=== PATIENT | female | born 1945 | race Caucasian/White ===

== ENCOUNTER 2016-11-15 10:10 | Emergency (ER) | payer MEDICARE, MEDICAID ==
[2016-11-15] MEDS ORDERED: LORazepam 0.5 MG Tab PO ONE (10:45)
[2016-11-15] MEDS ORDERED: oxyCODONE ER 10 MG TAB.ER PO ONE (11:45)
[2016-11-15] MEDS ORDERED: predniSONE 20 MG Tab PO ONE (12:41)
[2016-11-15] MEDS ORDERED: Azithromycin 250 MG Tab ONE (13:00)
[2016-11-15] MEDS ORDERED: LORazepam 0.5 MG Tab ONE (13:00)
--- NOTE | 2016-11-15 13:08 | EDM.PDOC ---
ED HPI GENERAL MEDICAL PROBLEM - General Chief Complaint: General Stated Complaint: ANXIETY, DOESNT FEEL WELL and breathing problems Time Seen by Provider: 11/15/16 10:40 Source of Information: Reports: Patient History Limitations: Reports: No Limitations - History of Present Illness INITIAL COMMENTS - FREE TEXT/NARRATIVE: Patient is a 70 year old woman with COPD and anxiety who started having a cough yesterday. Her cough has worsened today and she has gotten extremely anxious and is afraid of how poorly she is breathing, which has caused her to have a panic attack. No pain other than a headache and she feels that is from not having her oxycontin today. No other complaints. She has not done a neb for a few hours and has tried no other medication. She had her Lorazepam recently removed and she feels this may have contributed to the panic attack. 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: Breathing Treatments - Related Data Allergies Allergy/AdvReac Type Severity Reaction Status Date / Time milnacipran [From Savella] Allergy Cannot Verified 11/15/16 12:41 Remember nicotine [From Nicoderm CQ] Allergy Itching Verified 11/15/16 12:41 Penicillins Allergy Anaphylactic Verified 11/15/16 12:41 Shock tetracycline Allergy Cannot Verified 11/15/16 12:41 Remember diflunisal [From Dolobid] AdvReac Nausea Verified 11/15/16 12:41 gabapentin AdvReac Depression Verified 11/15/16 12:41 ketoprofen AdvReac Nausea Verified 11/15/16 12:41 lisinopril AdvReac Cannot Verified 11/15/16 12:41 Remember milnacipran HCl AdvReac Cannot Verified 11/15/16 12:41 [From Savella] Remember pregabalin [From Lyrica] AdvReac Cannot Verified 11/15/16 12:41 Remember Sulfa (Sulfonamide AdvReac Cannot Verified 11/15/16 12:41 Antibiotics) Remember Tetracyclines AdvReac Cannot Verified 11/15/16 12:41 Remember Home Meds: Home Meds Albuterol [Ventolin HFA] 2 puff IH Q4HR PRN 07/08/15 [History] Amitriptyline [Elavil] 50 mg PO BEDTIME 07/08/15 [History] Budesonide/Formoterol [Symbicort 160-4.5 MCG] 1 puff IH BID 07/08/15 [History] DULoxetine HCl [Cymbalta] 60 mg PO BID 07/08/15 [History] Ibuprofen [Motrin] 800 mg PO TID 07/08/15 [History] LORazepam [Ativan] 0.5 mg PO BID PRN 07/08/15 [History] Tiotropium [Spiriva HandiHaler] 1 inh INH DAILY@1200 07/08/15 [History] busPIRone HCl [Buspirone HCl] 15 mg PO TID 07/08/15 [History] oxyCODONE ER [OxyCONTIN] 15 mg PO DAILY 07/08/15 [History] Aspirin [Halfprin] 81 mg PO DAILY 12/26/15 [History] Esomeprazole [NexIUM] 40 mg PO DAILY@0700 12/26/15 [History] Fluticasone/Salmeterol [Advair 250-50 Diskus] 1 puff INH BID 12/26/15 [History] Lidocain/Me-Salicyl/Caps/Menth [Medi-Patch with Lidocaine] 1 each TP DAILY 12/25 [History] Roflumilast [Daliresp] 500 mcg PO DAILY 12/26/15 [History] Albuterol/Ipratropium [DuoNeb 3.0-0.5 MG/3 ML] 1 ampule INH BID #0 03/05/16 [Rx ] LORazepam [Ativan] 0.5 mg PO Q6H PRN #0 tablet 03/05/16 [Rx] Menthol/Zinc Oxide [Calmoseptine] 1 gm TOP BID tube 03/05/16 [Rx] Nicotine Polacrilex [Nicorelief] 4 mg CHEW Q4H PRN #0 gum 03/05/16 [Rx] Valsartan [Diovan] 320 mg PO DAILY tablet 03/05/16 [Rx] Zolpidem [Ambien] 5 mg PO BEDTIME PRN #0 tablet 03/05/16 [Rx] Past Medical History HEENT History: Reports: Impaired Vision Cardiovascular History: Reports: Hypertension Respiratory History: Reports: COPD Gastrointestinal History: Reports: Cholelithiasis, GERD 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: Musculoskeletal History: Reports: Fibromyalgia, Osteoarthritis Psychiatric History: Reports: Anxiety, Depression, Emotional Problems, Panic Attack, Suicide Attempt, Suicidal Ideation Oncologic (Cancer) History: Reports: Lung - Past Surgical History GI Surgical History: Reports: Cholecystectomy Social & Family History - Family History Family Medical History: Noncontributory Respiratory: Reports: COPD - Tobacco Use Smoking Status *Q: Never Smoker Years of Tobacco use: 50 Packs/Tins Daily: 0.5 Used Tobacco, but Quit: Yes Month Tobacco Last Used: june Second Hand Smoke Exposure: No - Caffeine Use Caffeine Use: Reports: None - Recreational Drug Use Recreational Drug Use: No ED ROS GENERAL - Review of Systems Review Of Systems: See Below Constitutional: Reports: No Symptoms HEENT: Reports: No Symptoms Respiratory: Reports: Shortness of Breath, Cough Cardiovascular: Reports: No Symptoms Endocrine: Reports: No Symptoms GI/Abdominal: Reports: No Symptoms : Reports: No Symptoms Musculoskeletal: Reports: No Symptoms Skin: Reports: No Symptoms Neurological: Reports: No Symptoms Psychiatric: Reports: No Symptoms Hematologic/Lymphatic: Reports: No Symptoms ED EXAM, GENERAL - Physical Exam Exam: See Below Exam Limited By: No Limitations General Appearance: Alert, WD/WN, Anxious, Mild Distress Eye Exam: Bilateral Eye: Normal Fundi, Normal Inspection, PERRL Ears: Normal External Exam, Normal Canal, Hearing Grossly Normal, Normal TMs Ear Exam: Bilateral Ear: Auricle Normal, Canal Normal, TM normal Nose: Normal Inspection, Normal Mucosa, No Blood Throat/Mouth: Normal Inspection, Normal Lips, Normal Teeth, Normal Gums, Normal Oropharynx, Normal Voice, No Airway Compromise Head: Atraumatic, Normocephalic Neck: Normal Inspection, Supple, Non-Tender, Full Range of Motion Respiratory/Chest: No Respiratory Distress, Lungs Clear, Normal Breath Sounds, No Accessory Muscle Use, Chest Non-Tender, Other (Breath sounds are normal but distant. Preliminary reading of CXR show Emphysematous changes but no pneumonia.) Cardiovascular: Normal Peripheral Pulses, Regular Rate, Rhythm, No Edema, No Gallop, No JVD, No Murmur, No Rub GI/Abdominal: Normal Bowel Sounds, Soft, Non-Tender, No Organomegaly, No Distention, No Abnormal Bruit, No Mass Back Exam: Normal Inspection, Full Range of Motion, NT Extremities: Normal Inspection, Normal Range of Motion, Non-Tender, Normal Capillary Refill, No Pedal Edema Neurological: Alert, Oriented, CN II-XII Intact, Normal Cognition, Normal Gait, Normal Reflexes, No Motor/Sensory Deficits Psychiatric: Anxious Skin Exam: Warm, Dry, Intact, Normal Color, No Rash Lymphatic: No Adenopathy Course - Vital Signs Text/Narrative:: Uneventful ED course. Her labs and x-rays came back normal and the Albuterol neb , 0.5 mg of Lorazepam and 5 mg of Oxycontin made her feel normal with no pain or breathing problems. She was also given Prednisone 50 mg in the ED and she was discharged home with a Zithromax Z-roc, 2, 0.5 mg Lorazepam to be taken for panic attack and she will follow up tomorrow with her PCP. She will continue her other medications and nebulizers that are already prescribed and will return to the ED if she needs to. - Orders/Labs/Meds Orders: Active Orders 24 hr Category Date Time Status EKG Documentation Completion [RC] ASDIRECTED Care 11/15/16 10:49 Active CXR [Chest 1V Frontal] [CR] Stat Exams 11/15/16 10:49 Taken Labs: Laboratory Tests 11/15/16 11/15/16 11/15/16 Range/Units 11:30 11:30 11:30 WBC 6.3 (4.0-11.0) K/uL RBC 3.83 (3.80-5.80) M/uL Hgb 11.3 L (11.5-16.5) g/dL Hct 33.8 L (37.0-47.0) % MCV 88 (76-96) fL MCH 29.5 (27.0-32.0) pg MCHC 33.4 (31.0-35.0) g/dL RDW 13.6 (11.0-16.0) % Plt Count 165 D (150-500) K/uL MPV 10.0 (6.0-10.0) fL Neut % (Auto) 69.6 (45.0-70.0) % Lymph % (Auto) 16.4 L (20.0-40.0) % Pettis % (Auto) 13.4 H (3.0-10.0) % Eos % (Auto) 0.3 L (1.0-5.0) % Baso % (Auto) 0.3 (0.0-0.5) % Neut # (Auto) 4.38 (2.00-7.50) K/uL Lymph # (Auto) 1.03 L (1.50-4.00) K/uL Pettis # (Auto) 0.84 H (0.20-0.80) K/uL Eos # (Auto) 0.02 L (0.04-0.40) K/uL Baso # (Auto) 0.02 (0.02-0.10) K/uL Sodium 139 (136-145) mmol/L Potassium 3.9 (3.5-5.1) mmol/L Chloride 102 (98-107) mmol/L Carbon Dioxide 26.6 (21.0-32.0) mmol/L Anion Gap 14.3 (5.0-15.0) mmol/L BUN 9 D (8-26) mg/dL Creatinine 0.89 (0.55-1.02) mg/dL Est Cr Clr Drug Dosing 42.25 mL/min Estimated GFR (MDRD) > 60 (>60) MLS/MIN BUN/Creatinine Ratio 10.1 (6-25) Glucose 118 H (74-100) mg/dL Calcium 8.6 (8.5-10.1) mg/dL Total Bilirubin 0.6 D (0.0-1.0) mg/dL AST 16 (15-37) U/L ALT 12 (12-78) U/L Alkaline Phosphatase 83 (46-116) U/L Troponin I < 0.017 (0.000-0.060) ng/mL Total Protein 7.1 (6.4-8.2) g/dL Albumin 3.3 L (3.4-5.0) g/dL Globulin 3.8 (2.2-4.2) g/dL Albumin/Globulin Ratio 0.9 (0.8-2.0) Meds: Medications Discontinued Medications Generic Name Dose Route Start Last Admin Trade Name Mitch PRN Reason Stop Dose Admin Lorazepam 0.5 mg 11/15/16 10:45 11/15/16 10:48 Ativan PO 11/15/16 10:46 0.5 mg ONETIME ONE Administration Oxycodone HCl 5 mg 11/15/16 11:45 11/15/16 11:51 Oxycontin PO 11/15/16 11:46 5 mg ONETIME ONE Administration Prednisone 50 mg 11/15/16 12:41 11/15/16 12:46 Prednisone PO 11/15/16 12:42 50 mg ONETIME ONE Administration Departure - Departure Time of Disposition: 13:15 Disposition: Admitted As Inpatient 66 Condition: Good Clinical Impression: COPD exacerbation, Panic attack - Discharge Information Instructions: Lorazepam tablets Referrals: PCP,None [Primary Care Provider] - Forms: ED Department Discharge Additional Instructions: - Follow-up with your provider tomorrow. - Continue with nebulizer treatment and inhaler and other home medications. - Bed rest at home. - My Orders Last 24 Hours: My Active Orders 11/15/16 10:49 EKG Documentation Completion [RC] ASDIRECTED CXR [Chest 1V Frontal] [CR] Stat - Assessment/Plan Last 24 Hours: My Active Orders 11/15/16 10:49 EKG Documentation Completion [RC] ASDIRECTED CXR [Chest 1V Frontal] [CR] Stat
--- NOTE | 2016-11-15 14:04 | CR ---
DATE OF SERVICE: 11/15/16 CLINICAL DATA: Dyspnea with COPD AP CHEST Comparison is made to a prior exam dated 03/04/16. The heart and lungs are stable. No evidence of acute intrathoracic disease. [id number] [facility]
[2016-11-15 14:57] VITALS: BP 170/85
== END 2016-11-15 13:20 | disposition home or self-care (01) ==
LOC: LB.ED 10:10
DX: J44.1 Chronic obstructive pulmonary disease with (acute) exacerbation (principal); F41.0 Panic disorder [episodic paroxysmal anxiety]; H54.7 Unspecified visual loss; I10 Essential (primary) hypertension; K21.9 Gastro-esophageal reflux disease without esophagitis; F32.9 Major depressive disorder, single episode, unspecified; Z90.49 Acquired absence of other specified parts of digestive tract; Z88.0 Allergy status to penicillin; Z88.2 Allergy status to sulfonamides; Z88.1 Allergy status to other antibiotic agents; Z88.8 Allergy status to other drugs, medicaments and biological substances; Z79.899 Other long term (current) drug therapy; Z79.82 Long term (current) use of aspirin; Z85.118 Personal history of other malignant neoplasm of bronchus and lung
CPT/HCPCS: 36415; 71010; 80053; 84484; 85025; 93005; 99284; A9270; 99283

== ENCOUNTER 2017-07-22 20:50 | Emergency (ER) | payer MEDICARE, MEDICAID ==
[2017-07-22] MEDS ORDERED: Albuterol/Ipratropium 3.0-0.5 MG/3 ML Neb Soln NEB ONE (22:20)
[2017-07-22 23:33] VITALS: BP 135/53
--- NOTE | 2017-07-23 04:23 | ER ---
Date of Service: 07/22/2017 HISTORY OF PRESENT ILLNESS: A 71-year-old lady who comes in with her sons with private car with complaints of passing out at home this evening. The patient states that she was walking in her home, she felt unsteady. She stopped and held onto the countertop for a little bit. She seemed like she was feeling better, and she turned around to go back into the living room when she thinks she fell at that time. She states that she woke up on the floor, and she noticed pain on the back of her head as well as a lump on the back of her head. There was no bleeding. The patient denies any other injuries. She states that she has fallen before in her house over the last couple of years. She has fallen at least two other times. The patient states that she does roll out of bed quite often too when she is having some bad dreams. The patient does have a fairly extensive medical history that includes history of depression, panic attacks, anxiety, suicidal ideation, and PTSD. The patient denies any thoughts of suicide recently. She tells me that she has a lot of aches and pains. She does have history of COPD and she tells me about fibromyalgia pain as well. The patient denies any neck pain, chest pain or abdominal pain at this time, and she tells me that she does not have any dizziness or lightheadedness at this point. She is very talkative. OBJECTIVE: GENERAL APPEARANCE: The patient is awake, she is very talkative. She is alert to person and place. VITAL SIGNS: Reviewed. Initially, her blood pressure is elevated with a reading of 182/68, pulse is 70. She is afebrile, O2 saturation 97% on room air. HEENT: On physical exam; eyes, pupils are equal, round, and reactive to light. EOMs are intact. Head is normocephalic. She does have a goose egg on the back of her head that would measure about 5 to 6 cm in diameter. This area is tender with even light palpation. Neck is nontender with palpation today. The patient can rotate her head and neck area both directions without any increase in pain. Oral mucous membranes moist. No sign of dental or oral injury. LUNG: Exam reveals wheezes throughout the lung messer with moderately reduced air exchange. CARDIAC: Heart sounds distinct. I do not hear any murmurs. GI : Abdomen is soft, nontender. SKIN: Warm and dry. EXTREMITIES: There is no lower extremity edema noted. LABS: Tonight include CBC which is normal. Comprehensive metabolic panel was also unremarkable. Head CT shows the mass that we saw on exam. No intracranial injury tonight. The patient was given a DuoNeb treatment, which significantly improved the wheezing down to just a very minimal end-expiratory wheezes. She was monitored here for about an hour. The blood pressure did drop, the last reading was in the 130s over 70s. The patient states that she is feeling much better. Ice packs were applied to the back of the patient' s head as well. She was able to get up and walk around the exam room without any obvious dizziness or lightheadedness. At this point, the patient will be discharged to home. She is to go home with her sons. They will have at least one person stay with her tonight. I advised patient that she needs to increase her use of her nebulizer machine at home. She does have a DuoNeb that she can take at home. She states she does not use it very often. She uses a couple of inhalers. I feel right now she needs to increase her DuoNeb treatment to 3 or 4 times a day through the weekend. She is to continue with activity as tolerated and have supervision there most of the time. The patient does have a followup appointment next Wednesday with her primary care provider. She is to keep this appointment time. The patient has no further questions. DIAGNOSIS: Syncopal episode. CRS/MODL /[id number] MTDKi
--- NOTE | 2017-07-23 09:41 | CT ---
DATE OF SERVICE: 07/22/17 CLINICAL DATA: passed out with closed head injury. UNENHANCED BRAIN CT: Multislice acquisition through the brain without IV contrast was performed. Comparison is made to a prior exam dated 07/08/15. There are periventricular lucencies bilaterally consistent with small vessel ischemic change. No masses or mass effect. No intracranial hemorrhage. No evidence of acute or subacute infarct. No osseous abnormalities. IMPRESSION: No acute intracranial abnormalities. [id number] [facility]
== END 2017-07-22 22:50 | disposition home or self-care (01) ==
LOC: LB.ED 20:50
DX: R55 Syncope and collapse (principal); R06.2 Wheezing; J44.9 Chronic obstructive pulmonary disease, unspecified; F41.9 Anxiety disorder, unspecified; F32.9 Major depressive disorder, single episode, unspecified; F43.10 Post-traumatic stress disorder, unspecified; E53.8 Deficiency of other specified B group vitamins
CPT/HCPCS: 36415; 70450; 80053; 85025; 93005; 96372; 99283; 99284-25; J3420; J7620

== ENCOUNTER 2017-09-23 08:01 | Inpatient (IN) | payer MEDICARE, MEDICAID ==
[2017-09-23] MEDS ORDERED: Albuterol 8 GM Inhaler INH PRN (16:32)
[2017-09-23] MEDS ORDERED: busPIRone 15 MG Tab PO SCH ×2 (17:00→20:00)
[2017-09-23] MEDS ORDERED: oxyCODONE 5 MG Tab PO PRN (17:14)
[2017-09-23] MEDS ORDERED: Meclizine 12.5 MG Tab PO PRN (17:15)
[2017-09-23] MEDS ORDERED: traZODone 50 MG Tab PO SCH (20:00)
[2017-09-23] MEDS ORDERED: traZODone 100 MG Tab PO SCH (20:00)
[2017-09-23] MEDS ORDERED: ESCITALOPRAM OXALATE 5 MG PO SCH (20:00)
[2017-09-23] MEDS: BUDESONIDE IH SCH (20:11)
[2017-09-23] MEDS: FORMOTEROL IH SCH (20:11)
[2017-09-23] MEDS: DULoxetine 60 MG Cap PO SCH (20:11)
[2017-09-24] MEDS ORDERED: Non-Formulary Medication 1 Each (Esomeprazole [Nexium] 40 MG) PO SCH (07:00)
[2017-09-24] MEDS ORDERED: busPIRone 15 MG Tab PO SCH (08:00)
[2017-09-24] MEDS ORDERED: MAGNESIUM OXIDE 400 MG PO SCH (08:00)
[2017-09-24] MEDS ORDERED: Valsartan 160 MG Tab PO SCH (08:00)
[2017-09-24] MEDS ORDERED: Non-Formulary Medication 1 Each (Oxycodone Hcl [Oxycodone Hcl] 5 MG) PO SCH (08:00)
--- NOTE | 2017-09-24 08:11 | HP ---
CHIEF COMPLAINT: Dizziness and falls. PAST MEDICAL HISTORY: 1. Depression, severe with suicidal ideation and anxiety. 2. Hyponatremia. 3. Hypokalemia. 4. Hypertension. 5. Chronic obstructive pulmonary disease. 6. Fibromyalgia. 7. History of lung cancer, status post resection. 8. Status post cholecystectomy. 9. Chronic narcotic use. HISTORY OF PRESENT ILLNESS: A pleasant 71-year-old female comes into the clinic today, very disheveled, frustrated, anxious because of continued vertiginous dizziness and falls at home. She did have a fall on Mother's Day of this year. She went to the emergency room where its head scan was negative for any bleed, but did develop an occipital hematoma. The patient has persisted to have vertigo since that time and has had 2 further falls. She feels that she is getting much weaker. She is not eating as well. The dizziness is brought on with any type of movement of her head. She denies any other focal neurologic symptoms. To complicate things, she has also stopped taking some of her medications, Lexapro and also cut down on her trazodone at night. She is having difficulty with sleeping with worsening depression and anxiety. She also has increased the use of her oxycodone, taking two tablets daily instead of the prescribed, one. She denies having any other focal neurologic symptoms. No fevers, chills, or sweats. ALLERGIES: NEURONTIN, LYRICA, DOLOBID, KETOPROFEN, LISINOPRIL. PENICILLIN, SAVELLA, SULFA, AND TETRACYCLINE. MEDICATIONS: Ibuprofen 800 mg t.i.d., oxycodone 5 mg q.h.s., albuterol nebs q.6 hours p.r.n., Daliresp 500 mg daily, ProAir inhaler 2 puffs q.4-6 hours p.r.n. Spiriva 18 mcg 1 puff daily, Symbicort 160/4.5 one puff b.i.d., duloxetine 60 mg b.i.d., Lexapro 5 mg daily which she has stopped taking, Nexium 40 mg daily, aspirin 81 mg daily, magnesium oxide 400 mg daily, propranolol ER 60 mg daily, valsartan 160 mg daily, BuSpar 15 mg t.i.d., trazodone 50 mg q.h.s., and takes an extra half tablet in 2 hours if not sleeping, previous dose was 100 mg q.h.s. The patient previously stopped taking her Remeron 7.5 mg nightly. SOCIAL HISTORY: She is . Does smoke half pack a day. No alcohol. FAMILY HISTORY: Reviewed and was noncontributory. REVIEW OF SYSTEMS: A 12-point review of systems is negative other than above. PHYSICAL EXAMINATION: GENERAL: The patient presents today very anxious-appearing, somewhat disheveled. No makeup in place. Her speech is not pressured. She comes in with a wheeled walker. VITAL SIGNS: Blood pressure is 148/90, pulse is 68, she is afebrile. Weight is 137 pounds, which is stable from earlier this month. HEENT: Negative. TMs are clear. No adenopathy or thyromegaly. CHEST: Clear. CARDIAC: Regular rate and rhythm without gallop, rub, or murmur. ABDOMEN: Benign. : Deferred. NEUROLOGIC: She is alert and oriented x3. Pupils are equal, round, and reactive to light. Remainder of cranial nerves III through XII are intact. There is no nystagmus. Strength is symmetric, but decreased in both upper and lower extremities. She is able to ambulate with normal gait with her walker. She becomes very unsteady when I have her stand up from a chair. Hallpike maneuver does bring on dizziness, but no nystagmus. IMPRESSION: 1. Peripheral vertigo. 2. Frequent falls. 3. Deconditioning. 4. Anxiety with depression. 5. Medication compliance. 6. Chronic narcotic use. 7. Hypertension. 8. Chronic obstructive pulmonary disease. 9. Fibromyalgia. PLAN: I did talk with her at length, and I told her I did not feel that she was safe at home due to her vertigo and falls. I did talk with Social Work here today and we will plan on admitting for observation and getting her back on her current medications. Also do screening labs of BMP and a CBC. We will plan on re-scanning her head because of her 2 falls after her last CT. If these are normal, we will ask Physical Therapy for evaluation. Restart her psychiatric medications as previously prescribed. I told her of the need to stay on only one oxycodone daily. We will then make reassessment of her situation, but anticipate that she is going to need a correction facility for a some period of time until she recovers. We will also use Antivert for her vertigo. SIMONE/THIERRY
[2017-09-24] MEDS: Aspirin 81 MG Tab.EC PO SCH (08:19)
[2017-09-24] MEDS: Roflumilast 500 MCG Tab PO SCH (08:20)
[2017-09-24] MEDS: Propranolol 60 MG Cap.ER PO SCH (08:21)
[2017-09-24] MEDS: DULoxetine 60 MG Cap PO SCH ×2 (08:22→20:03)
[2017-09-24] MEDS: FORMOTEROL IH SCH (08:28)
[2017-09-24] MEDS: BUDESONIDE IH SCH (08:28)
--- NOTE | 2017-09-24 09:56 | CT ---
DATE OF SERVICE: 09/23/17 CLINICAL DATA: fall UNENHANCED BRAIN CT: Multislice acquisition through the brain without IV contrast was performed. Comparison is made to a prior exam dated 07/22/17. No changes. No acute intracranial abnormalities. [id number] [facility]
[2017-09-24] MEDS: Albuterol/Ipratropium 3.0-0.5 MG/3 ML Neb Soln INH SCH ×3 (10:37→20:08)
[2017-09-24] MEDS: Ibuprofen 800 MG Tab PO SCH ×4 (10:38→20:04)
[2017-09-24] MEDS ORDERED: oxyCODONE 5 MG Tab ONE (11:43)
[2017-09-24] MEDS: Tiotropium Inhaler 18 MCG Inhalation Powder Cap Kit of 5 INH SCH (11:46)
[2017-09-24] MEDS: oxyCODONE 5 MG Tab PO SCH (12:43)
--- NOTE | 2017-09-24 14:19 | PN ---
DATE OF VISIT: 09/24/2017 SUBJECTIVE: The patient reports feeling much better this morning. She is up ambulating to the bathroom on her own without significant dizziness. She ate supper well last night. She would like to move her oxycodone to late morning, and she understands she is only able to have one 5 mg tablet daily. She denies any headache or any other neurologic symptom. She states her mood also has improved. She is less anxious, has not been any tearfulness. Denies any side effects of the medications. OBJECTIVE: VITAL SIGNS: Stable. GENERAL: The patient looks brighter. She is much better kempt with her hair combed, glasses on. Up ambulating with her walker. HEENT: There was no nystagmus today. NEUROLOGIC: Grossly nonfocal. LUNGS: Clear. CARDIAC: Unremarkable. IMPRESSION: 1. Dizziness. 2. Anxiety and depression. 3. Chronic obstructive pulmonary disease. 4. Fibromyalgia. 5. Chronic narcotic use. PLAN: The patient is a markedly improved today and occupational therapy saw the patient and could not really elicit any dizziness. I am questioning whether or not her dizziness may also be exacerbated by her depression. In any event, she is on Antivert now. We will continue with this. Restart her Lexapro, which she had stopped at home, and also increased her trazodone to 100 mg, although she was on 150 mg previously. Continue with PT and OT. If over the weekend the patient progresses well, may need a swing bed for further strengthening versus alf facility stay. We will defer that to early next week. The patient is comfortable with this plan and expresses understanding. TIKA /[id number]
[2017-09-24] MEDS: busPIRone 10 MG Tab PO SCH ×2 (14:29→20:02)
[2017-09-24] MEDS: traZODone 50 MG Tab PO SCH (20:06)
[2017-09-24] MEDS: Escitalopram 20 MG Tab PO SCH (20:08)
[2017-09-24] MEDS: Formoterol/Mometasone 200-5 MCG 8.8 GM Inhaler IH SCH (20:08)
[2017-09-25] MEDS: Ibuprofen 800 MG Tab PO SCH ×4 (04:47→20:42)
[2017-09-25] MEDS: Esomeprazole 40 MG Cap PO SCH (06:37)
[2017-09-25] MEDS ORDERED: Valsartan 40 MG Tab PO SCH (08:00)
[2017-09-25] MEDS ORDERED: Meclizine 12.5 MG Tab PO SCH (08:00)
[2017-09-25] MEDS ORDERED: busPIRone 10 MG Tab PO SCH (08:00)
[2017-09-25] MEDS: Magnesium Oxide 400 MG Tab PO SCH (08:13)
[2017-09-25] MEDS: Aspirin 81 MG Tab.EC PO SCH (08:13)
[2017-09-25] MEDS: DULoxetine 60 MG Cap PO SCH ×2 (08:13→20:43)
[2017-09-25] MEDS: busPIRone 10 MG Tab PO SCH ×3 (08:13→20:44)
[2017-09-25] MEDS: Roflumilast 500 MCG Tab PO SCH (08:13)
[2017-09-25] MEDS: Propranolol 60 MG Cap.ER PO SCH (08:14)
[2017-09-25] MEDS: Formoterol/Mometasone 200-5 MCG 8.8 GM Inhaler IH SCH ×2 (08:15→20:40)
[2017-09-25] MEDS: Albuterol/Ipratropium 3.0-0.5 MG/3 ML Neb Soln INH SCH ×2 (08:15→20:46)
[2017-09-25] MEDS: oxyCODONE 5 MG Tab PO SCH (09:00)
[2017-09-25] MEDS ORDERED: oxyCODONE 5 MG Tab PO SCH (10:30)
--- NOTE | 2017-09-25 11:48 | PCM.PN ---
- General Info Date of Service: 09/25/17 Subjective Update: Pt claims she is hurting all over the body today. She claims that her dizziness is worse today. She feels the room spin every time she move her head. She does ambulate to bathroom and back with some help. Feeding well. Claims she is weak and tired. No nausea or vomiting. No double vision or syncopal episodes. No amurosis fugax. Functional Status: Reports: Tolerating Diet, Ambulating, Urinating, Incentive Spirometry - Review of Systems General: Reports: Weakness. Denies: Fever, Chills, Appetite HEENT: Denies: Headaches, Sinus Congestion Pulmonary: Denies: Shortness of Breath, Sputum, Hemoptysis Cardiovascular: Denies: Chest Pain, Lightheadedness Gastrointestinal: Reports: Flatus. Denies: Nausea, Vomiting Genitourinary: Denies: Dysuria, Frequency Musculoskeletal: Reports: Leg Pain. Denies: Joint Pain, Joint Swelling Skin: Denies: Pruritis, Rash - Patient Data Vitals - Most Recent: Last Vital Signs Temp 98.1 F 09/25/17 08:00 Pulse 73 09/25/17 08:00 Resp 18 09/25/17 08:00 BP 131/67 09/25/17 08:00 Pulse Ox 97 09/25/17 08:00 Weight - Most Recent: 61.689 kg Med Orders - Current: Current Medications Albuterol (Ventolin Hfa) 8 gm INH Q4HR PRN PRN Reason: Shortness of Breath Albuterol/Ipratropium (Duoneb 3.0-0.5 Mg/3 Ml) 3 ml INH BID [facility] Last Admin: 09/25/17 08:15 Dose: Not Given Aspirin (Halfprin) 81 mg PO DAILY [facility] Last Admin: 09/25/17 08:13 Dose: 81 mg Buspirone HCl (Buspar) 15 mg PO TID [facility] Last Admin: 09/25/17 08:13 Dose: 15 mg Duloxetine HCl (Cymbalta) 60 mg PO BID [facility] Last Admin: 09/25/17 08:13 Dose: 60 mg Escitalopram Oxalate (Lexapro) 5 mg PO BEDTIME [facility] Last Admin: 09/24/17 20:08 Dose: 5 mg Esomeprazole Magnesium (Nexium) 40 mg PO DAILY@0700 [facility] Last Admin: 09/25/17 06:37 Dose: 40 mg Ibuprofen (Motrin) 800 mg PO TID [facility] Last Admin: 09/25/17 08:15 Dose: Not Given Magnesium Oxide (Magnesium Oxide) 400 mg PO DAILY [facility] Last Admin: 09/25/17 08:13 Dose: 400 mg Meclizine HCl (Antivert) 25 mg PO TID@0600,1400,2200 [facility] Last Admin: 09/25/17 06:38 Dose: 25 mg Mometasone Furoate/Formoterol Fumar (Dulera 200-5 Mcg) 1 puff IH BID [facility] Last Admin: 09/25/17 08:15 Dose: 1 puff Oxycodone HCl (Oxycodone) 5 mg PO DAILY@1030 [facility] Last Admin: 09/24/17 12:43 Dose: Not Given Propranolol HCl (Inderal La) 60 mg PO DAILY [facility] Last Admin: 09/25/17 08:14 Dose: 60 mg Roflumilast (Daliresp) 500 mcg PO DAILY [facility] Last Admin: 09/25/17 08:13 Dose: 500 mcg Tiotropium [place] (Spiriva Handihaler) 18 mcg INH DAILY@1200 [facility] Last Admin: 09/24/17 11:46 Dose: 18 mcg Trazodone HCl (Trazodone) 100 mg PO BEDTIME [facility] Last Admin: 09/24/17 20:06 Dose: 100 mg Valsartan (Diovan) 160 mg PO DAILY [facility] Last Admin: 09/25/17 08:14 Dose: 160 mg Discontinued Medications Buspirone HCl (Buspar) 30 mg PO DAILY [facility] Last Admin: 09/24/17 08:18 Dose: 15 mg Buspirone HCl (Buspar) 15 mg PO BID@1200,1700 [facility] Last Admin: 09/23/17 17:44 Dose: 15 mg Meclizine HCl (Antivert) 12.5 mg PO TID@0600,1400,2200 PRN PRN Reason: DIZZINESS Last Admin: 09/24/17 08:20 Dose: 12.5 mg Non-Formulary Medication (Budesonide/Formoterol [Symbicort 160-4.5 Mcg]) 1 puff IH BID [facility] Last Admin: 09/24/17 08:28 Dose: 1 puff Non-Formulary Medication (Esomeprazole [Nexium]) 40 mg PO DAILY@0700 [facility] Last Admin: 09/24/17 06:30 Dose: 40 mg Non-Formulary Medication (Escitalopram Oxalate [Lexapro]) 5 mg PO BEDTIME [facility] Last Admin: 09/23/17 20:11 Dose: 5 mg Magnesium Oxide (400mg) 1 each PO DAILY [facility] Last Admin: 09/24/17 08:20 Dose: 1 each Oxycodone HCl (Oxycodone) 5 mg PO BID PRN PRN Reason: MODERATE PAIN Last Admin: 09/23/17 17:40 Dose: 5 mg Oxycodone HCl (Oxycodone) 5 mg PO DAILY@1030 [facility] Last Admin: 09/24/17 11:47 Dose: 5 mg Oxycodone HCl (Oxycodone) Confirm Administered Dose 5 mg .ROUTE .STK-MED ONE Stop: 09/24/17 11:44 Last Admin: 09/24/17 11:49 Dose: Not Given Trazodone HCl (Trazodone) 100 mg PO BEDTIME [facility] Last Admin: 09/23/17 20:10 Dose: 100 mg Valsartan (Diovan) 160 mg PO DAILY [facility] Last Admin: 09/24/17 08:19 Dose: 160 mg - Exam General: Alert, Oriented HEENT: Pupils Equal, Pupils Reactive, EOMI, Mucous Membr. Moist/[place] Neck: Supple Lungs: Clear to Auscultation, Normal Respiratory Effort Cardiovascular: Regular Rate, Regular Rhythm GI/Abdominal Exam: Normal Bowel Sounds, Soft, Non-Tender, No Organomegaly, No Distention, No Abnormal Bruit, No Mass, Pelvis Stable Extremities: Normal Inspection, Normal Range of Motion, Non-Tender, No Pedal Edema, Normal Capillary Refill Peripheral Pulses: 2+: Carotid (L), Carotid (R) Skin: Warm, Intact Neurological: No New Focal Deficit - Problem List & Annotations (1) Unspecified vertiginous syndromes and labyrinthine disorders SNOMED Code(s): 25566642, 54043089 Code(s): H81.90 - UNSPECIFIED DISORDER OF VESTIBULAR FUNCTION, UNSPECIFIED EAR Status: Acute Current Visit: Yes - Problem List Review Problem List Initiated/Reviewed/Updated: Yes - Assessment Assessment:: non specific vertigo with fall - Plan Plan:: Pt does not have elicitable vertigo. She moves the head and neck in every direction when she wants too . But when examining patient she feels dizzy. Also she starts to sway when her eyes are closed and when she moves and when she opens the eye she still continue to sway.I don't know if she has functional vertigo or organic cause of it. But she is single , elderly and has had fall at home several times. Hence will monitor in controlled environment. Will have OP and PT work with patient.Will continue present medication regime.
[2017-09-25] MEDS: Tiotropium Inhaler 18 MCG Inhalation Powder Cap Kit of 5 INH SCH (17:37)
[2017-09-25] MEDS: traZODone 50 MG Tab PO SCH (20:45)
[2017-09-25] MEDS: Escitalopram 20 MG Tab PO SCH (20:46)
[2017-09-26] MEDS: Esomeprazole 40 MG Cap PO SCH (06:34)
[2017-09-26] MEDS: Aspirin 81 MG Tab.EC PO SCH (08:06)
[2017-09-26] MEDS: Ibuprofen 800 MG Tab PO SCH ×3 (08:06→19:36)
[2017-09-26] MEDS: Roflumilast 500 MCG Tab PO SCH (08:06)
[2017-09-26] MEDS: Magnesium Oxide 400 MG Tab PO SCH (08:06)
[2017-09-26] MEDS: busPIRone 10 MG Tab PO SCH ×3 (08:07→19:37)
[2017-09-26] MEDS: DULoxetine 60 MG Cap PO SCH ×2 (08:07→19:35)
[2017-09-26] MEDS: Propranolol 60 MG Cap.ER PO SCH (08:08)
[2017-09-26] MEDS: Formoterol/Mometasone 200-5 MCG 8.8 GM Inhaler IH SCH ×2 (08:09→19:34)
[2017-09-26] MEDS: Albuterol/Ipratropium 3.0-0.5 MG/3 ML Neb Soln INH SCH ×2 (08:09→19:56)
[2017-09-26] MEDS: oxyCODONE 5 MG Tab PO SCH (10:09)
--- NOTE | 2017-09-26 11:19 | PCM.PN ---
- General Info Date of Service: 09/26/17 Subjective Update: Pt claims that she is feeling better, but still gets sudden dizzy episodes. HAd some upset stomach today morning, and resolved after bowel movement. tolerating oral diet well. Does ambulate with walker. No complaints Functional Status: Reports: Pain Controlled, Tolerating Diet, Ambulating, Urinating - Review of Systems General: Denies: Fever, Weakness HEENT: Denies: Sinus Congestion, Visual Changes Pulmonary: Denies: Cough, Sputum Cardiovascular: Denies: Chest Pain, Lightheadedness Gastrointestinal: Denies: Abdominal Pain, Nausea, Vomiting Genitourinary: Denies: Dysuria, Frequency Musculoskeletal: Denies: Joint Pain, Joint Swelling Skin: Denies: Pruritis, Rash Neurological: Denies: No Symptoms Psychiatric: Reports: Anxiety - Patient Data Vitals - Most Recent: Last Vital Signs Temp 98.3 F 09/26/17 07:53 Pulse 65 09/26/17 07:53 Resp 16 09/26/17 07:53 BP 124/71 09/26/17 07:53 Pulse Ox 98 09/26/17 07:53 Weight - Most Recent: 61.689 kg Med Orders - Current: Current Medications Albuterol (Ventolin Hfa) 8 gm INH Q4HR PRN PRN Reason: Shortness of Breath Albuterol/Ipratropium (Duoneb 3.0-0.5 Mg/3 Ml) 3 ml INH BID [facility] Last Admin: 09/26/17 08:09 Dose: Not Given Aspirin (Halfprin) 81 mg PO DAILY [facility] Last Admin: 09/26/17 08:06 Dose: 81 mg Buspirone HCl (Buspar) 15 mg PO TID [facility] Last Admin: 09/26/17 08:07 Dose: 15 mg Duloxetine HCl (Cymbalta) 60 mg PO BID [facility] Last Admin: 09/26/17 08:07 Dose: 60 mg Escitalopram Oxalate (Lexapro) 5 mg PO BEDTIME [facility] Last Admin: 09/25/17 20:46 Dose: 5 mg Esomeprazole Magnesium (Nexium) 40 mg PO DAILY@0700 [facility] Last Admin: 09/26/17 06:34 Dose: 40 mg Ibuprofen (Motrin) 800 mg PO TID [facility] Last Admin: 09/26/17 08:06 Dose: 800 mg Magnesium Oxide (Magnesium Oxide) 400 mg PO DAILY [facility] Last Admin: 09/26/17 08:06 Dose: 400 mg Meclizine HCl (Antivert) 25 mg PO TID@0600,1400,2200 [facility] Last Admin: 09/26/17 06:34 Dose: 25 mg Mometasone Furoate/Formoterol Fumar (Dulera 200-5 Mcg) 1 puff IH BID [facility] Last Admin: 09/26/17 08:09 Dose: 1 puff Oxycodone HCl (Oxycodone) 5 mg PO DAILY@1030 [facility] Last Admin: 09/26/17 10:09 Dose: 5 mg Propranolol HCl (Inderal La) 60 mg PO DAILY [facility] Last Admin: 09/26/17 08:08 Dose: 60 mg Roflumilast (Daliresp) 500 mcg PO DAILY [facility] Last Admin: 09/26/17 08:06 Dose: 500 mcg Tiotropium [place] (Spiriva Handihaler) 18 mcg INH DAILY@1200 [facility] Last Admin: 09/25/17 17:37 Dose: Not Given Trazodone HCl (Trazodone) 100 mg PO BEDTIME [facility] Last Admin: 09/25/17 20:45 Dose: 100 mg Valsartan (Diovan) 160 mg PO DAILY [facility] Last Admin: 09/26/17 08:07 Dose: 160 mg Discontinued Medications Buspirone HCl (Buspar) 30 mg PO DAILY [facility] Last Admin: 09/24/17 08:18 Dose: 15 mg Buspirone HCl (Buspar) 15 mg PO BID@1200,1700 [facility] Last Admin: 09/23/17 17:44 Dose: 15 mg Meclizine HCl (Antivert) 12.5 mg PO TID@0600,1400,2200 PRN PRN Reason: DIZZINESS Last Admin: 09/24/17 08:20 Dose: 12.5 mg Non-Formulary Medication (Budesonide/Formoterol [Symbicort 160-4.5 Mcg]) 1 puff IH BID [facility] Last Admin: 09/24/17 08:28 Dose: 1 puff Non-Formulary Medication (Esomeprazole [Nexium]) 40 mg PO DAILY@0700 [facility] Last Admin: 09/24/17 06:30 Dose: 40 mg Non-Formulary Medication (Escitalopram Oxalate [Lexapro]) 5 mg PO BEDTIME [facility] Last Admin: 09/23/17 20:11 Dose: 5 mg Magnesium Oxide (400mg) 1 each PO DAILY [facility] Last Admin: 09/24/17 08:20 Dose: 1 each Oxycodone HCl (Oxycodone) 5 mg PO BID PRN PRN Reason: MODERATE PAIN Last Admin: 09/23/17 17:40 Dose: 5 mg Oxycodone HCl (Oxycodone) 5 mg PO DAILY@1030 [facility] Last Admin: 09/24/17 11:47 Dose: 5 mg Oxycodone HCl (Oxycodone) Confirm Administered Dose 5 mg .ROUTE .STK-MED ONE Stop: 09/24/17 11:44 Last Admin: 09/24/17 11:49 Dose: Not Given Trazodone HCl (Trazodone) 100 mg PO BEDTIME [facility] Last Admin: 09/23/17 20:10 Dose: 100 mg Valsartan (Diovan) 160 mg PO DAILY [facility] Last Admin: 09/24/17 08:19 Dose: 160 mg - Exam General: Alert, Oriented HEENT: Pupils Equal, Pupils Reactive, EOMI, Mucous Membr. Moist/[place] Neck: Supple Lungs: Clear to Auscultation, Normal Respiratory Effort Cardiovascular: Regular Rate, Regular Rhythm GI/Abdominal Exam: Normal Bowel Sounds, Soft, Non-Tender, No Organomegaly, No Distention, No Abnormal Bruit, No Mass, Pelvis Stable Extremities: Normal Inspection, Normal Range of Motion, Non-Tender, No Pedal Edema, Normal Capillary Refill Peripheral Pulses: 2+: Carotid (L), Carotid (R), Radial (L), Radial (R) Skin: Warm, Intact Neurological: No New Focal Deficit Psy/Mental Status: Alert, Anxious - Problem List & Annotations (1) Unspecified vertiginous syndromes and labyrinthine disorders SNOMED Code(s): 80787267, [id number] Code(s): H81.90 - UNSPECIFIED DISORDER OF VESTIBULAR FUNCTION, UNSPECIFIED EAR Status: Acute Current Visit: Yes - Problem List Review Problem List Initiated/Reviewed/Updated: Yes - My Orders Last 24 Hours: My Active Orders 09/26/17 00:15 Ambulate [RC] CONTINUOUS - Assessment Assessment:: non specific vertigo with fall - Plan Plan:: Pt does not have elicitable vertigo. She moves the head and neck in every direction when she wants too . But when examining patient she feels dizzy. Also she starts to sway when her eyes are closed and when she moves and when she opens the eye she still continue to sway.I don't know if she has functional vertigo or organic cause of it. But she is single , elderly and has had fall at home several times. Hence will monitor in controlled environment. Will have OP and PT work with patient.Will continue present medication regime. 09/26/17 Pt seems better today. Will continue meclizine. Will have OT and PT evaluation tomorrow. also social service to be involved about placement plan for patient as she is single vulnerable elderly female at risk of fall.
[2017-09-26] MEDS: Tiotropium Inhaler 18 MCG Inhalation Powder Cap Kit of 5 INH SCH (13:37)
[2017-09-26] MEDS: traZODone 50 MG Tab PO SCH (19:35)
[2017-09-26] MEDS: Escitalopram 20 MG Tab PO SCH (19:37)
[2017-09-27] MEDS: Esomeprazole 40 MG Cap PO SCH (06:29)
[2017-09-27] MEDS: Albuterol/Ipratropium 3.0-0.5 MG/3 ML Neb Soln INH SCH (08:00)
[2017-09-27] MEDS: busPIRone 10 MG Tab PO SCH (08:07)
[2017-09-27] MEDS: DULoxetine 60 MG Cap PO SCH (08:08)
[2017-09-27] MEDS: Roflumilast 500 MCG Tab PO SCH (08:09)
[2017-09-27] MEDS: Aspirin 81 MG Tab.EC PO SCH (08:11)
[2017-09-27] MEDS: Magnesium Oxide 400 MG Tab PO SCH (08:11)
[2017-09-27] MEDS: Ibuprofen 800 MG Tab PO SCH (08:12)
[2017-09-27] MEDS: Propranolol 60 MG Cap.ER PO SCH (08:14)
[2017-09-27 08:15] VITALS: BP 152/80
[2017-09-27] MEDS: Formoterol/Mometasone 200-5 MCG 8.8 GM Inhaler IH SCH (08:15)
--- NOTE | 2017-09-27 10:27 | PCM.DCSUM1 ---
Discharge Summary - Hospital Course Free Text/Narrative:: Pt was admitted to monitor patient closely for her vertigo. Also she was placed on meclizine and back on her lexapro which patient had stopped. Over the past weekend in the hospital patient has improved. She still has episodes of vertigo , which happen randomly. But some times triggered by head movement, but most of the time not. She has been cleared by OT and PT at this point. I do feel the symptoms are functional. On today's exam she is very alert and she feels she can go home.She prefers to go home. There dos seem to be some social issues asso with her behaviour. She claims that her kids are few block away from her home, but never come and visit her, but now the kids have agreed to visit her often. She does claim she gets depressed of being alone at home. Option of both Care center and Assisted living given to patient today, by me and the hospital sr. social media & mobile manager. Pt prefers to go home and try for some time. Pt discharge on present medication regime. Follow-up with Dr. Gipson in 2 wks. HPI Initial Comments: Kindly see H&P Brief History: Pt has had chronic verigto, recently had fall on Mother's day and she has stopped her depression meds. Hence admitted to monitor her vertigo and gait abnormality if any. - Discharge Data Discharge Date: 09/27/17 Discharge Disposition: Home, Self-Care 01 Condition: Good - Discharge Diagnosis/Problem(s) (1) Unspecified vertiginous syndromes and labyrinthine disorders SNOMED Code(s): 23098877, 46398568 ICD Code: H81.90 - UNSPECIFIED DISORDER OF VESTIBULAR FUNCTION, UNSPECIFIED EAR Status: Acute Current Visit: Yes - Patient Summary/Data Consults: Consultations 09/23/17 16:42 Consult to [employer] Supervisor [CONS] Routine Comment: Physician Instructions: PT Evaluation and Treatment [CONS] Routine Please Evaluate and Treat. PT Reason for Consult: Balance This query below is only for informational purposes and is not editable. Admission Diagnosis/Problem: Vertigo - Patient Instructions Diet: Regular Diet as Tolerated Fluid Restriction: 1500 mL Activity: As Tolerated Driving: May Drive Today Showering/Bathing: May Shower - Discharge Plan Prescriptions/Med Rec: Meclizine [Antivert] 25 mg PO TID@0600,1400,2200 #14 tab.[email or web address] Home Medications: Home Meds Albuterol [Ventolin HFA] 2 puff IH Q4HR PRN 07/08/15 [History] Budesonide/Formoterol [Symbicort 160-4.5 MCG] 1 puff IH BID 07/08/15 [History] DULoxetine HCl [Cymbalta] 60 mg PO BID 07/08/15 [History] Ibuprofen [Motrin] 800 mg PO TID 07/08/15 [History] Tiotropium [Spiriva HandiHaler] 1 inh INH DAILY@1200 07/08/15 [History] busPIRone HCl [Buspirone HCl] 15 mg PO TID 07/08/15 [History] Aspirin [Halfprin] 81 mg PO DAILY 12/26/15 [History] Esomeprazole [NexIUM] 40 mg PO DAILY@0700 12/26/15 [History] Fluticasone/Salmeterol [Advair 250-50 Diskus] 1 puff INH BID 12/26/15 [History] Roflumilast [Daliresp] 500 mcg PO DAILY 12/26/15 [History] Albuterol/Ipratropium [DuoNeb 3.0-0.5 MG/3 ML] 1 ampule INH BID #0 03/05/16 [Rx] oxyCODONE HCl [Oxycodone HCl] 5 mg PO DAILY 07/22/17 [History] Escitalopram Oxalate [Lexapro] 5 mg PO BEDTIME 09/23/17 [History] Propranolol [Inderal LA] 60 mg PO DAILY 09/23/17 [History] Valsartan [Diovan] 160 mg PO DAILY 09/23/17 [History] traZODone 100 mg PO BEDTIME 09/23/17 [History] Escitalopram [Lexapro] 5 mg PO BEDTIME tablet 09/27/17 [Rx] Magnesium Oxide 400 mg PO DAILY tablet 09/27/17 [Rx] Meclizine [Antivert] 25 mg PO TID@0600,1400,2200 #14 tab.chew 09/27/17 [Rx] busPIRone [Buspar] 15 mg PO TID tablet 09/27/17 [Rx] oxyCODONE 5 mg PO DAILY@1030 tablet 09/27/17 [Rx] Patient Handouts: Duloxetine delayed-release capsules, Buspirone tablets, Escitalopram tablets - Discharge Summary/Plan Comment DC Time >30 min.: Yes Discharge Summary/Plan Comment: Pt discharge on present medication regime. Follow-up with Dr. Gipson in 2 wks. - General Info Date of Service: 09/27/17 Functional Status: Reports: Pain Controlled, Tolerating Diet, Ambulating, Urinating - Review of Systems General: Denies: Fever, Weakness, Fatigue, Malaise HEENT: Denies: Sore Throat, Rhinitis Pulmonary: Denies: Shortness of Breath, Cough, Wheezing Cardiovascular: Denies: Chest Pain, Lightheadedness Gastrointestinal: Denies: Nausea, Vomiting Genitourinary: Denies: Dysuria, Frequency Musculoskeletal: Denies: Joint Pain, Joint Swelling Neurological: Reports: Dizziness. Denies: Confusion, Headache, Numbness, Tingling, Weakness, Gait Disturbance Psychiatric: Reports: Depression, Anxiety. Denies: Confusion, Mood Lability, Agitation, Cravings, Hallucinations, Suicidal Ideation - Patient Data Vitals - Most Recent: Last Vital Signs Temp 97.5 F 09/27/17 08:00 Pulse 95 09/27/17 08:00 Resp 18 09/27/17 08:00 BP 152/80 H 09/27/17 08:09 Pulse Ox 95 09/27/17 08:00 Weight - Most Recent: 61.689 kg Med Orders - Current: Current Medications Albuterol (Ventolin Hfa) 8 gm INH Q4HR PRN PRN Reason: Shortness of Breath Albuterol/Ipratropium (Duoneb 3.0-0.5 Mg/3 Ml) 3 ml INH BID [facility] Last Admin: 09/26/17 19:56 Dose: Not Given Aspirin (Halfprin) 81 mg PO DAILY [facility] Last Admin: 09/27/17 08:11 Dose: 81 mg Buspirone HCl (Buspar) 15 mg PO TID [facility] Last Admin: 09/27/17 08:07 Dose: 15 mg Duloxetine HCl (Cymbalta) 60 mg PO BID [facility] Last Admin: 09/27/17 08:08 Dose: 60 mg Escitalopram Oxalate (Lexapro) 5 mg PO BEDTIME [facility] Last Admin: 09/26/17 19:37 Dose: 5 mg Esomeprazole Magnesium (Nexium) 40 mg PO DAILY@0700 [facility] Last Admin: 09/27/17 06:29 Dose: 40 mg Ibuprofen (Motrin) 800 mg PO TID [facility] Last Admin: 09/27/17 08:12 Dose: 800 mg Magnesium Oxide (Magnesium Oxide) 400 mg PO DAILY [facility] Last Admin: 09/27/17 08:11 Dose: 400 mg Meclizine HCl (Antivert) 25 mg PO TID@0600,1400,2200 [facility] Last Admin: 09/27/17 06:29 Dose: 25 mg Mometasone Furoate/Formoterol Fumar (Dulera 200-5 Mcg) 1 puff IH BID [facility] Last Admin: 09/27/17 08:15 Dose: 1 puff Oxycodone HCl (Oxycodone) 5 mg PO DAILY@1030 [facility] Last Admin: 09/26/17 10:09 Dose: 5 mg Propranolol HCl (Inderal La) 60 mg PO DAILY [facility] Last Admin: 09/27/17 08:14 Dose: 60 mg Roflumilast (Daliresp) 500 mcg PO DAILY [facility] Last Admin: 09/27/17 08:09 Dose: 500 mcg Tiotropium [place] (Spiriva Handihaler) 18 mcg INH DAILY@1200 [facility] Last Admin: 09/26/17 13:37 Dose: 18 mcg Trazodone HCl (Trazodone) 100 mg PO BEDTIME [facility] Last Admin: 09/26/17 19:35 Dose: 100 mg Valsartan (Diovan) 160 mg PO DAILY [facility] Last Admin: 09/27/17 08:09 Dose: 160 mg Discontinued Medications Buspirone HCl (Buspar) 30 mg PO DAILY [facility] Last Admin: 09/24/17 08:18 Dose: 15 mg Buspirone HCl (Buspar) 15 mg PO BID@1200,1700 [facility] Last Admin: 09/23/17 17:44 Dose: 15 mg Meclizine HCl (Antivert) 12.5 mg PO TID@0600,1400,2200 PRN PRN Reason: DIZZINESS Last Admin: 09/24/17 08:20 Dose: 12.5 mg Non-Formulary Medication (Budesonide/Formoterol [Symbicort 160-4.5 Mcg]) 1 puff IH BID [facility] Last Admin: 09/24/17 08:28 Dose: 1 puff Non-Formulary Medication (Esomeprazole [Nexium]) 40 mg PO DAILY@0700 [facility] Last Admin: 09/24/17 06:30 Dose: 40 mg Non-Formulary Medication (Escitalopram Oxalate [Lexapro]) 5 mg PO BEDTIME [facility] Last Admin: 09/23/17 20:11 Dose: 5 mg Magnesium Oxide (400mg) 1 each PO DAILY [facility] Last Admin: 09/24/17 08:20 Dose: 1 each Oxycodone HCl (Oxycodone) 5 mg PO BID PRN PRN Reason: MODERATE PAIN Last Admin: 09/23/17 17:40 Dose: 5 mg Oxycodone HCl (Oxycodone) 5 mg PO DAILY@1030 [facility] Last Admin: 09/24/17 11:47 Dose: 5 mg Oxycodone HCl (Oxycodone) Confirm Administered Dose 5 mg .ROUTE .STK-MED ONE Stop: 09/24/17 11:44 Last Admin: 09/24/17 11:49 Dose: Not Given Trazodone HCl (Trazodone) 100 mg PO BEDTIME [facility] Last Admin: 09/23/17 20:10 Dose: 100 mg Valsartan (Diovan) 160 mg PO DAILY [facility] Last Admin: 09/24/17 08:19 Dose: 160 mg - Exam General: Reports: Alert HEENT: Reports: Pupils Equal, Pupils Reactive, EOMI, Mucous Membr. Moist/[place] Neck: Reports: Supple Lungs: Reports: Clear to Auscultation, Normal Respiratory Effort Cardiovascular: Reports: Regular Rate, Regular Rhythm GI/Abdominal Exam: Normal Bowel Sounds, Soft, Non-Tender, No Organomegaly, No Distention, No Abnormal Bruit, No Mass, Pelvis Stable Extremities: Normal Inspection, Normal Range of Motion, Non-Tender, No Pedal Edema, Normal Capillary Refill Skin: Reports: Warm Neurological: Reports: No New Focal Deficit Psy/Mental Status: Reports: Alert, Normal Affect, Normal Mood *Q Meaningful Use (DIS) - VTE *Q VTE Pharmacological Contraindications *Q: Not Candidate LT Anticoag
[2017-09-27] MEDS: oxyCODONE 5 MG Tab PO SCH (10:44)
[2017-09-27] MEDS: Tiotropium Inhaler 18 MCG Inhalation Powder Cap Kit of 5 INH SCH (12:00)
== END 2017-09-27 12:20 | disposition home or self-care (01) | DRG 149 ==
LOC: LB.MS 08:01 → UNDOADMOB 16:12 → LB.MS 16:19 → OBSVTOIN 09-24 08:01
PROVIDERS: ADMIT Internal Medicine; ATTEND Internal Medicine
DX: H81.399 Other peripheral vertigo, unspecified ear (principal); M62.81 Muscle weakness (generalized); H81.90 Unspecified disorder of vestibular function, unspecified ear; R45.851 Suicidal ideations; E87.1 Hypo-osmolality and hyponatremia; F17.210 Nicotine dependence, cigarettes, uncomplicated; Z91.81 History of falling; Z91.14 Patient's other noncompliance with medication regimen; F41.8 Other specified anxiety disorders; E87.6 Hypokalemia; I10 Essential (primary) hypertension; J44.9 Chronic obstructive pulmonary disease, unspecified; M79.7 Fibromyalgia; Z85.118 Personal history of other malignant neoplasm of bronchus and lung; F19.90 Other psychoactive substance use, unspecified, uncomplicated; Z88.0 Allergy status to penicillin; Z88.8 Allergy status to other drugs, medicaments and biological substances; Z79.899 Other long term (current) drug therapy
CPT/HCPCS: 36415; 70450; 80048; 85027; 97161-GP; A9270-GY; G0378

== ENCOUNTER 2018-07-09 22:11 | Emergency (ER) | payer MEDICARE, MEDICAID ==
--- NOTE | 2018-07-09 22:47 | EDM.PDOC ---
ED HPI GENERAL MEDICAL PROBLEM - General Chief Complaint: Drug or Alcohol Abuse Stated Complaint: Overdosed Time Seen by Provider: 07/09/18 22:20 Source of Information: Reports: Patient, EMS History Limitations: Reports: No Limitations - History of Present Illness INITIAL COMMENTS - FREE TEXT/NARRATIVE: According to patient she claims that she was upset about the in the family few days ago.Pt claims her son-in-law 2 days ago. So patient was upset about it, she drank 2 bottles of wine today and called her friend and told that she was going to sleep and rest with god. So her son was notified and called EMS. Patient claims that she has just been upset about the . She has not overdosed on any medications. She has taken her oxycodone as usual for her pains, but claims might have taken one extra pills over the past 2 days as she has been stressed and her pain gets worse. Also she claims her chest has been hurting all day today, as she is upset. Pt is not having any suicidal ideation or plans. Onset: Gradual Duration: Day(s): (2) Improves with: Reports: None Worsens with: Reports: None Associated Symptoms: Reports: Chest Pain. Denies: Confusion, Cough, Diaphoresis , Fever/Chills, Headaches, Nausea/Vomiting, Rash, Seizure, Shortness of Breath, Syncope, Weakness - Related Data Allergies Allergy/AdvReac Type Severity Reaction Status Date / Time milnacipran [From Savella] Allergy Cannot Verified 02/23/18 15:45 Remember nicotine [From Nicoderm CQ] Allergy Itching Verified 02/23/18 15:45 Penicillins Allergy Anaphylactic Verified 02/23/18 15:45 Shock tetracycline Allergy Cannot Verified 02/23/18 15:45 Remember diflunisal [From Dolobid] AdvReac Nausea Verified 02/23/18 15:45 gabapentin AdvReac Depression Verified 02/23/18 15:45 ketoprofen AdvReac Nausea Verified 02/23/18 15:45 lisinopril AdvReac Cannot Verified 02/23/18 15:45 Remember pregabalin [From Lyrica] AdvReac Cannot Verified 02/23/18 15:45 Remember Sulfa (Sulfonamide AdvReac Cannot Verified 02/23/18 15:45 Antibiotics) Remember Home Meds: Home Meds Albuterol [Ventolin HFA] 2 puff IH Q4HR PRN 07/08/15 [History] Budesonide/Formoterol [Symbicort 160-4.5 MCG] 1 puff IH BID 07/08/15 [History] DULoxetine HCl [Cymbalta] 60 mg PO BID 07/08/15 [History] Ibuprofen [Motrin] 800 mg PO TID 07/08/15 [History] Tiotropium [Spiriva HandiHaler] 1 inh INH DAILY@1200 07/08/15 [History] busPIRone HCl [Buspirone HCl] 15 mg PO TID 07/08/15 [History] Aspirin [Halfprin] 81 mg PO DAILY 12/26/15 [History] Esomeprazole [NexIUM] 40 mg PO DAILY@0700 12/26/15 [History] Fluticasone/Salmeterol [Advair 250-50 Diskus] 1 puff INH BID 12/26/15 [History] Roflumilast [Daliresp] 500 mcg PO DAILY 12/26/15 [History] Albuterol/Ipratropium [DuoNeb 3.0-0.5 MG/3 ML] 1 ampule INH BID #0 03/05/16 [Rx] oxyCODONE HCl [Oxycodone HCl] 5 mg PO DAILY 07/22/17 [History] Escitalopram Oxalate [Lexapro] 10 mg PO BEDTIME 09/23/17 [History] Propranolol [Inderal LA] 60 mg PO DAILY 09/23/17 [History] Valsartan [Diovan] 160 mg PO DAILY 09/23/17 [History] traZODone 100 mg PO BEDTIME 09/23/17 [History] Escitalopram [Lexapro] 5 mg PO BEDTIME tablet 09/27/17 [Rx] Magnesium Oxide 400 mg PO DAILY tablet 09/27/17 [Rx] Meclizine [Antivert] 25 mg PO TID@0600,1400,2200 #14 tab.chew 09/27/17 [Rx] busPIRone [Buspar] 15 mg PO TID tablet 09/27/17 [Rx] oxyCODONE 5 mg PO DAILY@1030 tablet 09/27/17 [Rx] hydrOXYzine HCl [hydrOXYzine] 25 mg PO QID 02/23/18 [History] Past Medical History HEENT History: Reports: Impaired Vision Cardiovascular History: Reports: Hypertension Respiratory History: Reports: COPD Gastrointestinal History: Reports: Cholelithiasis, GERD 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: Musculoskeletal History: Reports: Fibromyalgia, Osteoarthritis Psychiatric History: Reports: Anxiety, Depression, Emotional Problems, Panic Attack, Suicide Attempt, Suicidal Ideation Hematologic History: Reports: B12 Deficiency Oncologic (Cancer) History: Reports: Lung, Ovarian - Past Surgical History Respiratory Surgical History: Reports: Lung Resection, Other (See Below) Other Respiratory Surgeries/Procedures: Left Upper Lobectomy GI Surgical History: Reports: Cholecystectomy Female Surgical History: Reports: Other (See Below) Other Female Surgeries/Procedures: Ovarian Ca Oncologic Surgical History: Reports: Lobectomy Social & Family History - Family History Family Medical History: Noncontributory Respiratory: Reports: COPD - Caffeine Use Caffeine Use: Reports: Coffee ED ROS GENERAL - Review of Systems Review Of Systems: See Below Constitutional: Denies: Fever, Chills HEENT: Denies: Ear Pain, Rhinitis, Throat Pain Respiratory: Denies: Shortness of Breath, Wheezing, Pleuritic Chest Pain, Cough , Sputum Cardiovascular: Reports: Chest Pain. Denies: Lightheadedness GI/Abdominal: Denies: Abdominal Pain, Nausea, Vomiting : Denies: Dysuria, Frequency Musculoskeletal: Denies: Joint Pain, Joint Swelling Skin: Denies: Bruising, Pruritis, Rash Neurological: Denies: Confusion, Dizziness Psychiatric: Reports: Anxiety, Depression. Denies: Agitation, Confusion, Cravings, Suicidal Ideation ED EXAM, GENERAL - Physical Exam Exam: See Below Exam Limited By: No Limitations General Appearance: Alert, WD/WN, No Apparent Distress, Other (smell of alcohol) Eye Exam: Bilateral Eye: EOMI, PERRL Ears: Normal External Exam, Normal Canal, Hearing Grossly Normal, Normal TMs Ear Exam: Bilateral Ear: Auricle Normal, Canal Normal, TM normal Nose: Normal Inspection, Normal Mucosa, No Blood Throat/Mouth: Normal Inspection, Normal Lips, Normal Teeth, Normal Gums, Normal Oropharynx, Normal Voice, No Airway Compromise Head: Atraumatic, Normocephalic Neck: Normal Inspection, Supple, Non-Tender, Full Range of Motion Respiratory/Chest: No Respiratory Distress, Lungs Clear, Normal Breath Sounds, No Accessory Muscle Use, Chest Non-Tender Cardiovascular: Normal Peripheral Pulses, Regular Rate, Rhythm, No Edema, No Gallop, No JVD, No Murmur, No Rub GI/Abdominal: Normal Bowel Sounds, Soft, Non-Tender, No Organomegaly, No Distention, No Abnormal Bruit, No Mass Extremities: Normal Inspection, Normal Range of Motion, Non-Tender, Normal Capillary Refill, No Pedal Edema Neurological: Alert, Oriented, CN II-XII Intact EKG INTERPRETATION EKG Date: 07/09/18 Rhythm: NSR [place]: Normal P-Wave: Present QRS: Normal ST-T: Normal QT: Normal Course - Vital Signs Text/Narrative:: Pt has had of a close member of the family. She has been upset and drinking. She is alert and oriented. She does not have any suicidal plans or ideation. She just wants to sleep. This is natural bereavement after in the family. Pt does not appear to be overdosed on any medications. Her vitals are stable. Clinical exam is normal. Her EKG is in NSR with normal rate. Her ETOH level is 139. Patient is on antidepressants and antianxiety medications. There is no reason for admission or further monitoring. Patient's son is going to take her home with him tonight. Pt reassured that this is natural reaction to sudden loss in the family. Should improve. Return to emergency room or call help line, if she develops suicidal ideation or taught. - Orders/Labs/Meds Orders: Active Orders 24 hr Category Date Time Status EKG Documentation Completion [RC] ASDIRECTED Care 07/09/18 22:39 Ordered ETOH [ETHANOL BLOOD MEDICAL] [CHEM] Stat Lab 07/09/18 22:27 Ordered EKG 12 Lead [EK] Routine Ther 07/09/18 22:39 Ordered Departure - Departure Time of Disposition: 23:15 Disposition: Home, Self-Care 01 Condition: Fair Clinical Impression: Bereavement due to life event, Alcohol abuse - Discharge Information *PRESCRIPTION DRUG MONITORING PROGRAM REVIEWED*: Not Applicable *COPY OF PRESCRIPTION DRUG MONITORING REPORT IN PATIENT [place]ARREN: Not Applicable Referrals: Bentley Ferro MD [Primary Care Provider] - - Problem List & Annotations (1) Bereavement due to life event SNOMED Code(s): 09035566 Code(s): Z63.4 - DISAPPEARANCE AND OF FAMILY MEMBER Status: Acute Current Visit: Yes - Problem List Review Problem List Initiated/Reviewed/Updated: Yes - My Orders Last 24 Hours: My Active Orders 07/09/18 22:27 ETOH [ETHANOL BLOOD MEDICAL] [CHEM] Stat 07/09/18 22:39 EKG Documentation Completion [RC] ASDIRECTED EKG 12 Lead [EK] Routine - Assessment/Plan Last 24 Hours: My Active Orders 07/09/18 22:27 ETOH [ETHANOL BLOOD MEDICAL] [CHEM] Stat 07/09/18 22:39 EKG Documentation Completion [RC] ASDIRECTED EKG 12 Lead [EK] Routine Assessment:: Bereavement from loss of loved one Plan: Pt has had of a close member of the family. She has been upset and drinking. She is alert and oriented. She does not have any suicidal plans or ideation. She just wants to sleep. This is natural bereavement after in the family. Pt does not appear to be overdosed on any medications. Her vitals are stable. Clinical exam is normal. Her EKG is in NSR with normal rate. Her ETOH level is 139. Patient is on antidepressants and antianxiety medications. There is no reason for admission or further monitoring. Patient's son is going to take her home with him tonight. Pt reassured that this is natural reaction to sudden loss in the family. Should improve. Return to emergency room or call help line, if she develops suicidal ideation or taught.
[2018-07-10 00:10] VITALS: BP 147/83
== END 2018-07-09 23:20 | disposition home or self-care (01) ==
LOC: LB.ED 22:11
DX: F10.129 Alcohol abuse with intoxication, unspecified (principal); I10 Essential (primary) hypertension; J44.9 Chronic obstructive pulmonary disease, unspecified; Y90.6 Blood alcohol level of 120-199 mg/100 ml; Z88.8 Allergy status to other drugs, medicaments and biological substances; Z79.899 Other long term (current) drug therapy; Z63.4 Disappearance and death of family member
CPT/HCPCS: 36415; 93005; 99284-25; G0480

== ENCOUNTER 2018-11-15 19:50 | Emergency (ER) | payer MEDICARE, MEDICAID ==
--- NOTE | 2018-11-15 20:02 | EDM.PDOC ---
ED HPI GENERAL MEDICAL PROBLEM - General Chief Complaint: General Stated Complaint: SOB Time Seen by Provider: 11/15/18 19:55 Source of Information: Reports: Patient History Limitations: Reports: No Limitations - History of Present Illness INITIAL COMMENTS - FREE TEXT/NARRATIVE: According to patient she claims she has been having nasal congestion and stuffiness with cough for past few days. Since today evening , she has been having some wheezing since 4 pm today. No fever or chills. No chest pain or tightness. No nausea or vomiting. She was seen in the clinic for same reason and reassured. Pt thinks she need antibiotics and hence here in the emergency room. Appears very anxious. Onset: Today Onset Date: 11/15/18 Onset Time: 16:00 Severity: Mild Improves with: Reports: None Worsens with: Reports: None Associated Symptoms: Reports: Cough, Weakness. Denies: Confusion, Chest Pain, Diaphoresis, Fever/Chills, Headaches, Nausea/Vomiting, Rash, Seizure, Shortness of Breath, Syncope - Related Data Allergies Allergy/AdvReac Type Severity Reaction Status Date / Time milnacipran [From Savella] Allergy Cannot Verified 07/10/18 00:16 Remember nicotine [From Nicoderm CQ] Allergy Itching Verified 07/10/18 00:16 Penicillins Allergy Anaphylactic Verified 07/10/18 00:16 Shock tetracycline Allergy Cannot Verified 07/10/18 00:16 Remember diflunisal [From Dolobid] AdvReac Nausea Verified 07/10/18 00:16 gabapentin AdvReac Depression Verified 07/10/18 00:16 ketoprofen AdvReac Nausea Verified 07/10/18 00:16 lisinopril AdvReac Cannot Verified 07/10/18 00:16 Remember pregabalin [From Lyrica] AdvReac Cannot Verified 07/10/18 00:16 Remember Sulfa (Sulfonamide AdvReac Cannot Verified 07/10/18 00:16 Antibiotics) Remember Home Meds: Home Meds Albuterol [Ventolin HFA] 2 puff IH Q4HR PRN 07/08/15 [History] Budesonide/Formoterol [Symbicort 160-4.5 MCG] 1 puff IH BID 07/08/15 [History] DULoxetine HCl [Cymbalta] 60 mg PO BID 07/08/15 [History] Tiotropium [Spiriva HandiHaler] 1 inh INH DAILY@1200 07/08/15 [History] Aspirin [Halfprin] 81 mg PO DAILY 12/26/15 [History] Esomeprazole [NexIUM] 40 mg PO DAILY@0700 12/26/15 [History] Fluticasone/Salmeterol [Advair 250-50 Diskus] 1 puff INH BID 12/26/15 [History] Roflumilast [Daliresp] 500 mcg PO DAILY 12/26/15 [History] Albuterol/Ipratropium [DuoNeb 3.0-0.5 MG/3 ML] 1 ampule INH BID #0 03/05/16 [Rx] oxyCODONE HCl [Oxycodone HCl] 1 tab PO BID PRN 07/22/17 [History] Escitalopram Oxalate [Lexapro] 10 mg PO BEDTIME 09/23/17 [History] Propranolol [Inderal LA] 60 mg PO DAILY 09/23/17 [History] traZODone 100 mg PO BEDTIME 09/23/17 [History] Meclizine [Antivert] 25 mg PO TID@0600,1400,2200 #14 tab.chew 09/27/17 [Rx] hydrOXYzine HCl [hydrOXYzine] 25 mg PO QID 02/23/18 [History] Levothyroxine [Synthroid] 50 mcg PO ACBREAKFAST 07/10/18 [History] Losartan [Cozaar] 50 mg PO DAILY 07/10/18 [History] Naproxen 250 mg PO BID 07/10/18 [History] busPIRone [Buspar] 30 mg PO TID 07/10/18 [History] Past Medical History HEENT History: Reports: Impaired Vision Cardiovascular History: Reports: Hypertension Respiratory History: Reports: COPD Gastrointestinal History: Reports: Cholelithiasis, GERD 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: Musculoskeletal History: Reports: Fibromyalgia, Osteoarthritis Psychiatric History: Reports: Anxiety, Depression, Emotional Problems, Panic Attack, Suicide Attempt, Suicidal Ideation Endocrine/Metabolic History: Reports: Hypothyroidism Hematologic History: Reports: B12 Deficiency Oncologic (Cancer) History: Reports: Lung, Ovarian - Past Surgical History Respiratory Surgical History: Reports: Lung Resection, Other (See Below) Other Respiratory Surgeries/Procedures: Left Upper Lobectomy GI Surgical History: Reports: Cholecystectomy Female Surgical History: Reports: Other (See Below) Other Female Surgeries/Procedures: Ovarian Ca Oncologic Surgical History: Reports: Lobectomy Social & Family History - Family History Family Medical History: Noncontributory Respiratory: Reports: COPD - Caffeine Use Caffeine Use: Reports: Coffee ED ROS GENERAL - Review of Systems Review Of Systems: See Below Constitutional: Reports: Weakness. Denies: Fever, Chills HEENT: Reports: Rhinitis. Denies: Ear Pain, Throat Pain Respiratory: Reports: Shortness of Breath, Wheezing, Cough, Sputum. Denies: Pleuritic Chest Pain Cardiovascular: Denies: Chest Pain, Lightheadedness, Syncope GI/Abdominal: Denies: Abdominal Pain, Constipation, Diarrhea, Nausea, Vomiting : Denies: Dysuria, Frequency Musculoskeletal: Denies: Joint Pain, Joint Swelling Skin: Denies: Bruising, Pruritis, Rash Neurological: Denies: Confusion, Dizziness, Headache, Numbness, Tingling Psychiatric: Reports: Anxiety. Denies: Confusion, Suicidal Ideation ED EXAM, GENERAL - Physical Exam Exam: See Below Exam Limited By: No Limitations General Appearance: Alert, WD/WN, No Apparent Distress, Anxious Eye Exam: Bilateral Eye: EOMI, PERRL Ears: Normal External Exam, Normal Canal, Hearing Grossly Normal, Normal TMs Ear Exam: Bilateral Ear: Auricle Normal, Canal Normal, TM normal Nose: Normal Inspection, Normal Mucosa, No Blood, Nasal Drainage, Other (nasal stuffiness) Throat/Mouth: Normal Inspection, Normal Lips, Normal Teeth, Normal Gums, Normal Oropharynx, Normal Voice, No Airway Compromise Head: Atraumatic, Normocephalic Neck: Normal Inspection, Supple, Non-Tender, Full Range of Motion Respiratory/Chest: No Respiratory Distress, Lungs Clear, Normal Breath Sounds, No Accessory Muscle Use, Chest Non-Tender, Other (pt has upper airway conducted sounds) Cardiovascular: Normal Peripheral Pulses, Regular Rate, Rhythm, No Edema, No Gallop, No JVD, No Murmur, No Rub GI/Abdominal: Normal Bowel Sounds, Soft, Non-Tender, No Organomegaly, No Distention, No Abnormal Bruit, No Mass Extremities: Normal Inspection, Normal Range of Motion, Non-Tender, Normal Capillary Refill, No Pedal Edema Neurological: Alert, Oriented, CN II-XII Intact, Normal Cognition Psychiatric: Anxious Course - Vital Signs Text/Narrative:: Pt has anxiety disorder. Her BP on arrival was 205/109mmhg, but with calming patient down her blood pressure did improve and presently her BP is 129/ 91mmhg. Pt is on air sampling and monitoring and her heart rate is between 60-70s. Her SPO2 is 100% on room air. Clinical exam is normal. She has URI and has conducted upper airway sounds heard over lung messer. Her CBC is normal and her Chest X-ray appear normal. SPO2 100% on room air.Pt reassured that she has viral URI. She does not need antibiotics. She should take Zyrtec 10mg daily. Do some steam inhalations 2-3 times daily. The course takes 7-10 days and gradually improve.Pt has severe underlying anxiety which gets worse with any illness. Pt was reassured that she does not have pneumonia or any acute lung disease. Last Recorded V/S: Last Vital Signs Temp 97.5 F 11/15/18 20:07 Pulse 70 11/15/18 20:07 Resp 20 11/15/18 20:07 BP 129/71 11/15/18 20:07 Pulse Ox 97 11/15/18 20:07 - Orders/Labs/Meds Orders: Active Orders 24 hr Category Date Time Status Chest 2V [CR] Stat Exams 11/15/18 19:52 Ordered Labs: Laboratory Tests 11/15/18 Range/Units 20:04 WBC 8.4 D (4.0-11.0) K/uL RBC 4.19 (3.80-5.80) M/uL Hgb 11.9 (11.5-16.5) g/dL Hct 36.9 L (37.0-47.0) % MCV 88 (76-96) fL MCH 28.4 (27.0-32.0) pg MCHC 32.2 (31.0-35.0) g/dL RDW 13.0 (11.0-16.0) % Plt Count 282 (150-500) K/uL MPV 9.3 (6.0-10.0) fL Neut % (Auto) 51.9 (45.0-70.0) % Lymph % (Auto) 35.8 (20.0-40.0) % [place] % (Auto) 7.6 (3.0-10.0) % Eos % (Auto) 4.1 (1.0-5.0) % Baso % (Auto) 0.6 H (0.0-0.5) % Neut # (Auto) 4.36 (2.00-7.50) K/uL Lymph # (Auto) 3.00 (1.50-4.00) K/uL [place] # (Auto) 0.64 (0.20-0.80) K/uL Eos # (Auto) 0.34 (0.04-0.40) K/uL Baso # (Auto) 0.05 (0.02-0.10) K/uL Departure - Departure Time of Disposition: 20:25 Disposition: Home, Self-Care 01 Condition: Fair Clinical Impression: Viral URI with cough - Discharge Information *PRESCRIPTION DRUG MONITORING PROGRAM REVIEWED*: Not Applicable *COPY OF PRESCRIPTION DRUG MONITORING REPORT IN PATIENT [place]: Not Applicable Forms: ED Department Discharge Additional Instructions: Her CBC is normal and her Chest X-ray appear normal. SPO2 100% on room air.Pt reassured that she has viral URI. She does not need antibiotics. She should take Zyrtec 10mg daily. Do some steam inhalations 2-3 times daily. The course takes 7-10 days and gradually improve.Pt has severe underlying anxiety which gets worse with any illness. Pt was reassured that she does not have pneumonia or any acute lung disease. - Problem List & Annotations (1) Viral URI with cough SNOMED Code(s): 838585801 Code(s): J06.9 - ACUTE UPPER RESPIRATORY INFECTION, UNSPECIFIED; B97.89 - OTH VIRAL AGENTS THE CAUSE OF DISEASES CLASSD [id number] Status: Acute - Problem List Review Problem List Initiated/Reviewed/Updated: Yes - My Orders Last 24 Hours: My Active Orders 11/15/18 19:52 Chest 2V [CR] Stat - Assessment/Plan Last 24 Hours: My Active Orders 11/15/18 19:52 Chest 2V [CR] Stat Assessment:: Viral URI Plan: Her CBC is normal and her Chest X-ray appear normal. SPO2 100% on room air.Pt reassured that she has viral URI. She does not need antibiotics. She should take Zyrtec 10mg daily. Do some steam inhalations 2-3 times daily. The course takes 7-10 days and gradually improve.Pt has severe underlying anxiety which gets worse with any illness. Pt was reassured that she does not have pneumonia or any acute lung disease.
[2018-11-15 20:08] VITALS: BP 129/71; PULSE 70
--- NOTE | 2018-11-16 14:59 | CR ---
DATE OF SERVICE: 11/15/18 CLINICAL DATA: Wheezing. PA AND LATERAL CHEST: Comparison made to a prior exam dated 02/28/18. The heart size is normal. There is calcification of the aortic arch. Lungs are mildly hyperexpanded. There are linear densities in the left midlung consistent with linear atelectasis or fibrosis. Lungs otherwise clear. No pneumothorax. No pleural effusions. There is degenerative disk disease throughout the thoracic spine. No obvious significant findings. [id number] [facility]
== END 2018-11-15 20:25 | disposition home or self-care (01) ==
LOC: LB.ED 19:50
DX: J06.9 Acute upper respiratory infection, unspecified (principal); I10 Essential (primary) hypertension; J44.9 Chronic obstructive pulmonary disease, unspecified; K21.9 Gastro-esophageal reflux disease without esophagitis; F41.9 Anxiety disorder, unspecified; F32.9 Major depressive disorder, single episode, unspecified; E03.9 Hypothyroidism, unspecified; Z88.8 Allergy status to other drugs, medicaments and biological substances; Z88.0 Allergy status to penicillin; Z88.1 Allergy status to other antibiotic agents; Z88.2 Allergy status to sulfonamides; Z88.6 Allergy status to analgesic agent; Z79.899 Other long term (current) drug therapy; Z79.82 Long term (current) use of aspirin
CPT/HCPCS: 36415; 71046; 85025; 99283; 99284-25

== ENCOUNTER 2018-12-20 14:19 | Observation (INO) | payer MEDICARE, MEDICAID ==
--- NOTE | 2018-12-20 15:35 | EDM.PDOCBH ---
ED HPI GENERAL MEDICAL PROBLEM - General Chief Complaint: Behavioral/Psych Stated Complaint: Suicidal Thoughts Time Seen by Provider: 12/20/18 15:15 Source of Information: Reports: Patient, Old Records, RN, Other (Lisseth, behavioral health counselor) History Limitations: Reports: No Limitations - History of Present Illness INITIAL COMMENTS - FREE TEXT/NARRATIVE: 73 yr female presents with suicidal ideation. She was seen by behavioral health counselor, Lisseth today for a routine visit and reported her thoughts of ending her life with a box of wine and taking her Oxycodone. States she would hate to hurt her grandchildren by taking her life and just needs some help to get through this. Her anxiety has been getting worse and has been having more frequent visits to ER and clinic. Reports her son told her to quit taking the oxycodone and she would clear up in her thoughts. She takes the oxycodone for relief of chronic pain and states she feels better after taking it. States she would like to be admitted here and to be weaned off her oxycodone and make sure she does ok while getting off this medication. PHQ-9 score of 25/27 today. Previous PHQ-9 in clinic, last year was . She reports taking her medications as prescribed. She states no alcohol since the weekend. States grandchildren are going back to college and this saddens her. She lives alone and does receive some home based services. Bilateral Legs Pain Score (Numeric/FACES): 4 - Related Data Allergies Allergy/AdvReac Type Severity Reaction Status Date / Time milnacipran [From Savella] Allergy Cannot Verified 12/20/18 14:59 Remember nicotine [From Nicoderm CQ] Allergy Itching Verified 12/20/18 14:59 Penicillins Allergy Anaphylactic Verified 12/20/18 14:59 Shock tetracycline Allergy Cannot Verified 12/20/18 14:59 Remember diflunisal [From Dolobid] AdvReac Nausea Verified 12/20/18 14:59 gabapentin AdvReac Depression Verified 12/20/18 14:59 ketoprofen AdvReac Nausea Verified 12/20/18 14:59 lisinopril AdvReac Cannot Verified 12/20/18 14:59 Remember pregabalin [From Lyrica] AdvReac Cannot Verified 12/20/18 14:59 Remember Sulfa (Sulfonamide AdvReac Cannot Verified 12/20/18 14:59 Antibiotics) Remember Home Meds: Home Meds Albuterol [Ventolin HFA] 2 puff IH Q4HR PRN 07/08/15 [History] Budesonide/Formoterol [Symbicort 160-4.5 MCG] 1 puff IH BID 07/08/15 [History] DULoxetine HCl [Cymbalta] 60 mg PO BID 07/08/15 [History] Tiotropium [Spiriva HandiHaler] 1 inh INH DAILY@1400 07/08/15 [History] Aspirin [Halfprin] 81 mg PO DAILY 12/26/15 [History] Esomeprazole [NexIUM] 40 mg PO ACBREAKFAST 12/26/15 [History] Roflumilast [Daliresp] 500 mcg PO DAILY 12/26/15 [History] oxyCODONE HCl [Oxycodone HCl] 1 tab PO BID 07/22/17 [History] Escitalopram Oxalate [Lexapro] 10 mg PO BEDTIME 09/23/17 [History] Propranolol [Inderal LA] 60 mg PO DAILY 09/23/17 [History] traZODone 100 mg PO BEDTIME 09/23/17 [History] hydrOXYzine HCl [hydrOXYzine] 25 mg PO QID PRN 02/23/18 [History] Levothyroxine [Synthroid] 50 mcg PO ACBREAKFAST 07/10/18 [History] Losartan [Cozaar] 75 mg PO DAILY 07/10/18 [History] busPIRone [Buspar] 30 mg PO DAILY 07/10/18 [History] Albuterol/Ipratropium [DuoNeb 3.0-0.5 MG/3 ML] 1 ampule INH Q6H PRN 12/20/18 [ History] Cyanocobalamin (Vitamin B12) [Vitamin B12] 1,000 mcg IM ASDIRECTED 12/20/18 [ History] Ibuprofen [Motrin] 800 mg PO TID PRN 12/20/18 [History] Meclizine [Antivert] 25 mg PO TID 12/20/18 [History] busPIRone HCl [Buspirone HCl] 15 mg PO BID@12,20 12/20/18 [History] oxyCODONE 5 mg PO ASDIRECTED 12/20/18 [History] Past Medical History HEENT History: Reports: Impaired Vision Cardiovascular History: Reports: Hypertension Respiratory History: Reports: COPD Gastrointestinal History: Reports: Cholelithiasis, Chronic Diarrhea, GERD 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: Musculoskeletal History: Reports: Fibromyalgia, Osteoarthritis Psychiatric History: Reports: Anxiety, Depression, Emotional Problems, Panic Attack, Psych Hospitalization(s), PTSD, Suicide Attempt, Suicidal Ideation Endocrine/Metabolic History: Reports: Hypothyroidism Hematologic History: Reports: B12 Deficiency Oncologic (Cancer) History: Reports: Lung, Ovarian Dermatologic History: Reports: Eczema - Past Surgical History Respiratory Surgical History: Reports: Lung Resection, Other (See Below) Other Respiratory Surgeries/Procedures: Left Upper Lobectomy GI Surgical History: Reports: Cholecystectomy Female Surgical History: Reports: Other (See Below) Other Female Surgeries/Procedures: Ovarian Ca Endocrine Surgical History: Reports: None Musculoskeletal Surgical History: Reports: None Oncologic Surgical History: Reports: Lobectomy Social & Family History - Family History Family Medical History: Noncontributory Respiratory: Reports: COPD - Caffeine Use Caffeine Use: Reports: Coffee ED ROS GENERAL - Review of Systems Review Of Systems: See Below Constitutional: Reports: Weakness, Decreased Appetite, Weight Loss HEENT: Reports: Glasses Respiratory: Reports: Cough Cardiovascular: Denies: Chest Pain, Blood Pressure Problem GI/Abdominal: Reports: Decreased Appetite, Nausea. Denies: Abdominal Pain : Reports: No Symptoms Musculoskeletal: Reports: Other (chronic pain) Skin: Reports: Dryness Psychiatric: Reports: Anxiety, Depression, Suicidal Ideation, Other (States everything is displeasure, many ideas in head at once and all bad thoughts. Uncertain if having auditory hallucinations.) Hematologic/Lymphatic: Reports: No Symptoms ED EXAM, BEHAVIORAL HEALTH - Physical Exam Exam: See Below Exam Limited By: No Limitations General Appearance: Alert, No Apparent Distress Ears: Normal External Exam, Hearing Grossly Normal Nose: Normal Inspection Throat/Mouth: Normal Inspection, Normal Lips, Normal Voice, No Airway Compromise Head: Atraumatic, Normocephalic Neck: Normal Inspection, Supple, Non-Tender Respiratory/Chest: No Respiratory Distress Cardiovascular: Normal Peripheral Pulses, Regular Rate, Rhythm GI/Abdominal: Normal Bowel Sounds, Soft, Non-Tender Back Exam: Normal Inspection Extremities: Normal Inspection, Normal Range of Motion, Non-Tender, No Pedal Edema Neurological: Alert, Normal Mood/Affect, Normal Cognition, Oriented x 3 Psychiatric: Alert, Normal Affect, Normal Cognition, Flight of Ideas, Suicidal Thoughts Skin Exam: Warm, Dry, Normal color COURSE, BEHAVIORAL HEALTH COMP - Course Vital Signs: Last Vital Signs Temp 97.8 F 12/21/18 05:23 Pulse 66 12/21/18 05:23 Resp 18 12/21/18 05:23 BP 161/86 H 12/21/18 05:23 Pulse Ox 94 L 12/21/18 05:23 Orders, Labs, Meds: Medication Orders Albuterol (Ventolin Hfa) 0 gm INH Q4HR PRN PRN Reason: Shortness of Breath Albuterol/Ipratropium (Duoneb 3.0-0.5 Mg/3 Ml) 3 ml INH Q6H PRN PRN Reason: Shortness of Breath Hydroxyzine HCl (Atarax) 25 mg PO QID PRN PRN Reason: Anxiety Ibuprofen (Motrin) 800 mg PO TID PRN PRN Reason: Pain Non-Formulary Medication (Aspirin [Halfprin]) 81 mg PO DAILY [facility] Non-Formulary Medication (Budesonide/Formoterol [Symbicort 160-4.5 Mcg]) 1 puff IH BID [facility] Last Admin: 12/20/18 23:04 Dose: Non-Formulary Medication (Buspirone Hcl [Buspirone Hcl]) 15 mg PO BID@12,20 [facility] Non-Formulary Medication (Buspirone [Buspar]) 30 mg PO DAILY [facility] Non-Formulary Medication (Duloxetine Hcl [Cymbalta]) 60 mg PO BID [facility] Non-Formulary Medication (Escitalopram Oxalate [Lexapro]) 10 mg PO BEDTIME [facility] Non-Formulary Medication (Esomeprazole [Nexium]) 40 mg PO ACBREAKFAST [facility] Last Admin: 12/21/18 06:16 Dose: 40 mg Non-Formulary Medication (Levothyroxine [Synthroid]) 50 mcg PO ACBREAKFAST [facility] Last Admin: 12/21/18 06:16 Dose: 50 mcg Non-Formulary Medication (Losartan [Cozaar]) 75 mg PO DAILY [facility] Non-Formulary Medication (Meclizine [Antivert]) 25 mg PO TID [facility] Non-Formulary Medication (Oxycodone Hcl [Oxycodone Hcl]) 1 tab PO BID [facility] Non-Formulary Medication (Oxycodone [Oxycodone]) 5 mg PO ASDIRECTED [facility] Non-Formulary Medication (Propranolol [Inderal La]) 60 mg PO DAILY [facility] Non-Formulary Medication (Roflumilast [Daliresp]) 500 mcg PO DAILY [facility] Non-Formulary Medication (Tiotropium [Spiriva Handihaler]) 1 inh INH DAILY@ 1400 [facility] Non-Formulary Medication (Trazodone [Trazodone]) 100 mg PO BEDTIME [facility] Laboratory Tests 12/20/18 12/20/18 12/20/18 Range/Units 15:40 15:40 15:40 WBC 7.7 (4.0-11.0) K/uL RBC 3.99 (3.80-5.80) M/uL Hgb 11.3 L (11.5-16.5) g/dL Hct 34.7 L (37.0-47.0) % MCV 87 (76-96) fL MCH 28.3 (27.0-32.0) pg MCHC 32.6 (31.0-35.0) g/dL RDW 13.5 (11.0-16.0) % Plt Count 232 (150-500) K/uL MPV 9.3 (6.0-10.0) fL Neut % (Auto) 55.1 (45.0-70.0) % Lymph % (Auto) 33.1 (20.0-40.0) % Graves % (Auto) 8.3 (3.0-10.0) % Eos % (Auto) 3.0 (1.0-5.0) % Baso % (Auto) 0.5 (0.0-0.5) % Neut # (Auto) 4.25 (2.00-7.50) K/uL Lymph # (Auto) 2.55 (1.50-4.00) K/uL Graves # (Auto) 0.64 (0.20-0.80) K/uL Eos # (Auto) 0.23 (0.04-0.40) K/uL Baso # (Auto) 0.04 (0.02-0.10) K/uL Sodium 138 (136-145) mmol/L Potassium 3.6 (3.5-5.1) mmol/L Chloride 102 (98-107) mmol/L Carbon Dioxide 28.0 (21.0-32.0) mmol/L Anion Gap 11.6 (5.0-15.0) mmol/L BUN 14 (8-26) mg/dL Creatinine 1.21 H (0.55-1.02) mg/dL Est Cr Clr Drug Dosing TNP Estimated GFR (MDRD) 44 L (>60) MLS/MIN BUN/Creatinine Ratio 11.6 (6-25) Glucose 99 (74-100) mg/dL Calcium 8.7 (8.5-10.1) mg/dL Total Bilirubin 0.5 (0.0-1.0) mg/dL AST 15 (15-37) U/L ALT 13 (12-78) U/L Alkaline Phosphatase 61 (46-116) U/L Total Protein 6.8 (6.4-8.2) g/dL Albumin 3.6 (3.4-5.0) g/dL Globulin 3.2 (2.2-4.2) g/dL Albumin/Globulin Ratio 1.1 (0.8-2.0) TSH, Ultra Sensitive 4.000 H D (0.358-3.740) uIU/mL Urine Color Urine Appearance (CLEAR) Urine pH (5.0-8.0) Ur Specific [place] (1.003-1.030) Urine Protein (NEGATIVE) mg/dL Urine Glucose (UA) (NEGATIVE) mg/dL Urine Ketones (NEGATIVE) mg/dL Urine Occult Blood (NEGATIVE) Urine Nitrite (NEGATIVE) Urine Bilirubin (NEGATIVE) Urine Urobilinogen (0.2-1.0) E.U./dL Ur Leukocyte Esterase (NEGATIVE) Urine RBC /HPF Urine WBC /HPF Ur Squamous Epith Cells /HPF Urine Bacteria /HPF Urine Opiates Screen (NEGATIVE) Ur Oxycodone Screen (NEGATIVE) Urine Methadone Screen (NEGATIVE) Ur Barbiturates Screen (NEGATIVE) Ur Tricyclics Screen (NEGATIVE) Ur Phencyclidine Scrn (NEGATIVE) Ur Amphetamine Screen (NEGATIVE) Urine MDMA Screen (NEGATIVE) U Benzodiazepines Scrn (NEGATIVE) U Cocaine Metab Screen (NEGATIVE) U Marijuana (THC) Screen (NEGATIVE) Ethyl Alcohol < 3.0 H (0.0-0.0) mg/dL 12/20/18 12/20/18 Range/Units 15:50 15:54 WBC (4.0-11.0) K/uL RBC (3.80-5.80) M/uL Hgb (11.5-16.5) g/dL Hct (37.0-47.0) % MCV (76-96) fL MCH (27.0-32.0) pg MCHC (31.0-35.0) g/dL RDW (11.0-16.0) % Plt Count (150-500) K/uL MPV (6.0-10.0) fL Neut % (Auto) (45.0-70.0) % Lymph % (Auto) (20.0-40.0) % Graves % (Auto) (3.0-10.0) % Eos % (Auto) (1.0-5.0) % Baso % (Auto) (0.0-0.5) % Neut # (Auto) (2.00-7.50) K/uL Lymph # (Auto) (1.50-4.00) K/uL Graves # (Auto) (0.20-0.80) K/uL Eos # (Auto) (0.04-0.40) K/uL Baso # (Auto) (0.02-0.10) K/uL Sodium (136-145) mmol/L Potassium (3.5-5.1) mmol/L Chloride (98-107) mmol/L Carbon Dioxide (21.0-32.0) mmol/L Anion Gap (5.0-15.0) mmol/L BUN (8-26) mg/dL Creatinine (0.55-1.02) mg/dL Est Cr Clr Drug Dosing Estimated GFR (MDRD) (>60) MLS/MIN BUN/Creatinine Ratio (6-25) Glucose (74-100) mg/dL Calcium (8.5-10.1) mg/dL Total Bilirubin (0.0-1.0) mg/dL AST (15-37) U/L ALT (12-78) U/L Alkaline Phosphatase (46-116) U/L Total Protein (6.4-8.2) g/dL Albumin (3.4-5.0) g/dL Globulin (2.2-4.2) g/dL Albumin/Globulin Ratio (0.8-2.0) TSH, Ultra Sensitive (0.358-3.740) uIU/mL Urine Color Yellow Urine Appearance Clear (CLEAR) Urine pH 6.5 (5.0-8.0) Ur Specific [place] 1.020 (1.003-1.030) Urine Protein 30 H (NEGATIVE) mg/dL Urine Glucose (UA) Negative (NEGATIVE) mg/dL Urine Ketones 15 H (NEGATIVE) mg/dL Urine Occult Blood Negative (NEGATIVE) Urine Nitrite Negative (NEGATIVE) Urine Bilirubin Negative (NEGATIVE) Urine Urobilinogen 0.2 (0.2-1.0) E.U./dL Ur Leukocyte Esterase Negative (NEGATIVE) Urine RBC Not seen /HPF Urine WBC Not seen /HPF Ur Squamous Epith Cells Few /HPF Urine Bacteria Not seen /HPF Urine Opiates Screen Negative (NEGATIVE) Ur Oxycodone Screen Positive H (NEGATIVE) Urine Methadone Screen Negative (NEGATIVE) Ur Barbiturates Screen Negative (NEGATIVE) Ur Tricyclics Screen Negative (NEGATIVE) Ur Phencyclidine Scrn Negative (NEGATIVE) Ur Amphetamine Screen Negative (NEGATIVE) Urine MDMA Screen Negative (NEGATIVE) U Benzodiazepines Scrn Negative (NEGATIVE) U Cocaine Metab Screen Negative (NEGATIVE) U Marijuana (THC) Screen Negative (NEGATIVE) Ethyl Alcohol (0.0-0.0) mg/dL Medications Generic Name Dose Route Start Last Admin Trade Name Freq PRN Reason Stop Dose Admin Albuterol 0 gm 12/20/18 19:06 Ventolin Hfa INH Q4HR PRN Shortness of Breath Albuterol/Ipratropium 3 ml 12/20/18 19:06 Duoneb 3.0-0.5 Mg/3 Ml INH Q6H PRN Shortness of Breath Hydroxyzine HCl 25 mg 12/20/18 19:06 Atarax PO QID PRN Anxiety Ibuprofen 800 mg 12/20/18 19:06 Motrin PO TID PRN Pain Non-Formulary Medication 81 mg 12/21/18 08:00 Aspirin [Halfprin] PO DAILY [facility] Non-Formulary Medication 1 puff 12/20/18 20:00 12/20/18 23:04 Budesonide/Formoterol [Symbicort 160-4.5 Mcg] IH Not Given BID [facility] Non-Formulary Medication 15 mg 12/21/18 08:00 Buspirone Hcl [Buspirone Hcl] PO BID@12,20 [facility] Non-Formulary Medication 30 mg 12/21/18 08:00 Buspirone [Buspar] PO DAILY [facility] Non-Formulary Medication 60 mg 12/21/18 08:00 Duloxetine Hcl [Cymbalta] PO BID [facility] Non-Formulary Medication 10 mg 12/21/18 20:00 Escitalopram Oxalate [Lexapro] PO BEDTIME [facility] Non-Formulary Medication 40 mg 12/21/18 07:00 12/21/18 06:16 Esomeprazole [Nexium] PO 40 mg ACBREAKFAST [facility] Administration Non-Formulary Medication 50 mcg 12/21/18 07:00 12/21/18 06:16 Levothyroxine [Synthroid] PO 50 mcg ACBREAKFAST [facility] Administration Non-Formulary Medication 75 mg 12/21/18 08:00 Losartan [Cozaar] PO DAILY [facility] Non-Formulary Medication 25 mg 12/21/18 08:00 Meclizine [Antivert] PO TID [facility] Non-Formulary Medication 1 tab 12/21/18 08:00 Oxycodone Hcl [Oxycodone Hcl] PO BID [facility] Non-Formulary Medication 5 mg 12/20/18 19:15 Oxycodone [Oxycodone] PO ASDIRECTED [facility] Non-Formulary Medication 60 mg 12/21/18 08:00 Propranolol [Inderal La] PO DAILY [facility] Non-Formulary Medication 500 mcg 12/21/18 08:00 Roflumilast [Daliresp] PO DAILY [facility] Non-Formulary Medication 1 inh 12/21/18 14:00 Tiotropium [Spiriva Handihaler] INH DAILY@1400 [facility] Non-Formulary Medication 100 mg 12/21/18 20:00 Trazodone [Trazodone] PO BEDTIME [facility] Discontinued Medications Generic Name Dose Route Start Last Admin Trade Name Freq PRN Reason Stop Dose Admin Buspirone HCl 15 mg 12/20/18 18:54 12/20/18 19:14 Buspar PO 12/20/18 18:55 15 mg ONETIME ONE Administration Buspirone HCl Confirm 12/20/18 19:08 12/20/18 19:13 Buspar Administered 12/20/18 19:09 Not Given Dose 20 mg .ROUTE .STK-MED ONE Duloxetine HCl 60 mg 12/20/18 18:54 12/20/18 19:13 Cymbalta PO 12/20/18 18:55 60 mg ONETIME ONE Administration Escitalopram Oxalate 10 mg 12/20/18 18:54 12/20/18 19:11 Lexapro PO 12/20/18 18:55 10 mg ONETIME ONE Administration Esomeprazole Magnesium Confirm 12/21/18 05:58 12/21/18 06:36 Nexium Administered 12/21/18 05:59 Not Given Dose 40 mg .ROUTE .STK-MED ONE Levothyroxine Sodium Confirm 12/21/18 05:58 12/21/18 06:36 Synthroid Administered 12/21/18 05:59 Not Given Dose 50 mcg .ROUTE .STK-MED ONE Meclizine HCl 25 mg 12/20/18 18:55 12/20/18 19:14 Antivert PO 12/20/18 18:56 25 mg ONETIME ONE Administration Oxycodone HCl 5 mg 12/20/18 18:54 12/20/18 19:12 Oxycodone PO 12/20/18 18:55 5 mg ONETIME ONE Administration Oxycodone HCl Confirm 12/21/18 05:57 12/21/18 06:36 Oxycodone Administered 12/21/18 05:58 Not Given Dose 5 mg .ROUTE .STK-MED ONE Trazodone HCl 100 mg 12/20/18 18:56 12/20/18 19:13 Trazodone PO 12/20/18 18:57 100 mg ONETIME ONE Administration Re-Assessment/Re-Exam: Labs reviewed and no acute infection noted. WBC 7.7 Hgb 11.3, Electrolytes are normal Na of 138 and K+ of 3.6. Creat 1.21 and EGFR 44. U/A with positive protein and ketones, may be related to not eating well. Little appetite and not eating well. Pt would like to be safe and start feeling better.. Contact to [facility]. [phone] Will fax pre-admission fax sheet. Departure - Departure Time of Disposition: 19:03 Disposition: Refer to Observation Condition: Undetermined Clinical Impression: Suicidal ideation, Depressive disorder, Anxiety, Sleep disturbance, unspecified - Discharge Information - Problem List & Annotations (1) Suicidal ideation SNOMED Code(s): 4324982 Code(s): R45.851 - SUICIDAL IDEATIONS Status: Acute Current Visit: Yes (2) Anxiety SNOMED Code(s): 42332947 Code(s): F41.9 - ANXIETY DISORDER, UNSPECIFIED Status: Acute Current Visit: Yes (3) Depressive disorder SNOMED Code(s): 41473920 Code(s): F32.9 - MAJOR DEPRESSIVE DISORDER, SINGLE EPISODE, UNSPECIFIED Status: Acute Current Visit: Yes (4) Sleep disturbance, unspecified SNOMED Code(s): 68281377 Code(s): G47.9 - SLEEP DISORDER, UNSPECIFIED Status: Acute Current Visit : Yes - Problem List Review Problem List Initiated/Reviewed/Updated: Yes - Assessment/Plan Plan: 73 yr female admit to observation, presented to ER 12-20-18, escorted by her behavioral health counselor, Lisseth. Pt confided in Lisseth, that she was having thoughts of suicide and plan was to buy a box of wine and drink it with her Rx of Oxycodone, when it is filled on . Pt states she doesn't want to exist anymore, but doesn't want to hurt her grandchildren with her suicide. States she is so lonely and no company and so isolated in her apartment. Medical history of COPD, fibromyalgia, GERD, hypertension, hypothyroid, Vit B12 deficiency and receives monthly B12 injections. Pt states she has a hx of PTSD and some of these thoughts are starting to come back and she has many bad thoughts in her mind and no good thoughts coming through. Contact to inpatient at [facility] and [place] and no available beds tonight, but may have openings tomorrow. Will place on observation tonight, VS q 4 hour, and home medications.
[2018-12-20] MEDS ORDERED: Ibuprofen 800 MG Tab PO PRN (19:06)
[2018-12-20] MEDS ORDERED: Albuterol 8 GM Inhaler INH PRN (19:06)
[2018-12-20] MEDS ORDERED: Albuterol/Ipratropium 3.0-0.5 MG/3 ML Neb Soln INH PRN (19:06)
[2018-12-20] MEDS: Escitalopram 20 MG Tab PO ONE (19:11)
[2018-12-20] MEDS: oxyCODONE 5 MG Tab PO ONE (19:12)
[2018-12-20] MEDS: traZODone 100 MG Tab PO ONE (19:13)
[2018-12-20] MEDS: DULoxetine 60 MG Cap PO ONE (19:13)
[2018-12-20] MEDS: busPIRone 10 MG Tab ONE (19:13)
[2018-12-20] MEDS: busPIRone 15 MG Tab PO ONE (19:14)
[2018-12-20] MEDS: BUDESONIDE IH SCH (23:04)
[2018-12-20] MEDS: FORMOTEROL IH SCH (23:04)
[2018-12-21] MEDS: LEVOTHYROXINE 50 MCG PO SCH (06:16)
[2018-12-21] MEDS: Non-Formulary Medication 1 Each (Esomeprazole [Nexium] 40 MG) PO SCH (06:16)
[2018-12-21] MEDS: Levothyroxine 50 MCG Tab ONE (06:36)
[2018-12-21] MEDS: Esomeprazole 40 MG Cap ONE (06:36)
[2018-12-21] MEDS: oxyCODONE 5 MG Tab ONE (06:36)
[2018-12-21] MEDS ORDERED: DULOXETINE HCL 60 MG PO SCH (08:00)
[2018-12-21] MEDS ORDERED: Non-Formulary Medication 1 Each (Roflumilast [Daliresp] 500 MCG) PO SCH (08:00)
[2018-12-21] MEDS ORDERED: Non-Formulary Medication 1 Each (Aspirin [Halfprin] 81 MG) PO SCH (08:00)
[2018-12-21] MEDS ORDERED: PROPRANOLOL 60 MG PO SCH (08:00)
[2018-12-21] MEDS ORDERED: OXYCODONE HCL PO SCH (08:00)
[2018-12-21] MEDS ORDERED: BUSPIRONE HCL 15 MG PO SCH (08:00)
[2018-12-21] MEDS ORDERED: BUSPIRONE 30 MG PO SCH (08:00)
[2018-12-21] MEDS ORDERED: Non-Formulary Medication 1 Each (Meclizine [Antivert] 25 MG) PO SCH (08:00)
[2018-12-21] MEDS ORDERED: LOSARTAN PO SCH (08:00)
--- NOTE | 2018-12-21 08:30 | PCM.SN ---
- Free Text/Narrative Note: TC to [facility] this am [phone]. States to call back at 930. 3 discharge today, no open bed at this time. TC from [place], They will review forms and contact this facility at 930, may have an opening. [phone].
[2018-12-21] MEDS ORDERED: oxyCODONE 5 MG Tab PO SCH (10:53)
[2018-12-21] MEDS ORDERED: busPIRone 15 MG Tab PO SCH (11:00)
[2018-12-21] MEDS: Losartan 25 MG Tab PO SCH (11:11)
[2018-12-21] MEDS: Aspirin 81 MG Tab.EC PO SCH (11:11)
[2018-12-21] MEDS: Esomeprazole 40 MG Cap PO SCH (11:12)
[2018-12-21] MEDS: Levothyroxine 50 MCG Tab PO SCH (11:12)
[2018-12-21] MEDS: Roflumilast 500 MCG Tab PO SCH (11:12)
[2018-12-21] MEDS: DULoxetine 60 MG Cap PO SCH (11:12)
[2018-12-21] MEDS: Propranolol 60 MG Cap.ER PO SCH (11:13)
[2018-12-21] MEDS: Formoterol/Mometasone 200-5 MCG 8.8 GM Inhaler IH SCH (11:14)
[2018-12-21] MEDS: busPIRone 15 MG Tab PO SCH (11:15)
[2018-12-21] MEDS: oxyCODONE 5 MG Tab PO SCH (11:15)
[2018-12-21] MEDS: Tiotropium Inhaler 18 MCG Inhalation Powder Cap Kit of 5 INH SCH (14:22)
[2018-12-21 14:35] VITALS: BP 158/81
[2018-12-21] MEDS: hydrOXYzine HCl 25 MG Tab PO PRN (14:54)
[2018-12-21] MEDS ORDERED: Escitalopram 20 MG Tab PO SCH (20:00)
[2018-12-21] MEDS ORDERED: traZODone 100 MG Tab PO SCH (20:00)
--- NOTE | 2018-12-22 08:15 | PCM.DCSUM1 ---
Discharge Summary - Hospital Course Brief History: 73 yr female presented to ER from her [facility] counselor , pt has suicidal thoughts and has a plan to use her oxycodone and a box of wine to end her life. She is seeking help and doesn't want to have these thoughts. Contact made to [facility] and accepting of pt after review of records and review with pt and [facility] social insurance analyst. Diagnosis: Stroke: No - Discharge Data Discharge Date: 12/21/18 Discharge Disposition: DC/Tfer to Psych Hosp/Unit 65 Condition: Good - Discharge Diagnosis/Problem(s) (1) Suicidal ideation SNOMED Code(s): 8493071 ICD Code: R45.851 - SUICIDAL IDEATIONS Status: Acute (2) Anxiety SNOMED Code(s): 08073819 ICD Code: F41.9 - ANXIETY DISORDER, UNSPECIFIED Status: Acute (3) Depressive disorder SNOMED Code(s): 11658618 ICD Code: F32.9 - MAJOR DEPRESSIVE DISORDER, SINGLE EPISODE, UNSPECIFIED Status: Acute (4) Sleep disturbance, unspecified SNOMED Code(s): 15447005 ICD Code: G47.9 - SLEEP DISORDER, UNSPECIFIED Status: Acute - Patient Instructions Diet: Regular Diet as Tolerated Activity: As Tolerated - Discharge Plan *PRESCRIPTION DRUG MONITORING PROGRAM REVIEWED*: Yes *COPY OF PRESCRIPTION DRUG MONITORING REPORT IN PATIENT WARREN: Yes Home Medications: Home Meds Albuterol [Ventolin HFA] 2 puff IH Q4HR PRN 07/08/15 [History] Budesonide/Formoterol [Symbicort 160-4.5 MCG] 1 puff IH BID 07/08/15 [History] DULoxetine HCl [Cymbalta] 60 mg PO BID 07/08/15 [History] Tiotropium [Spiriva HandiHaler] 1 inh INH DAILY@1400 07/08/15 [History] Aspirin [Halfprin] 81 mg PO DAILY 12/26/15 [History] Esomeprazole [NexIUM] 40 mg PO ACBREAKFAST 12/26/15 [History] Roflumilast [Daliresp] 500 mcg PO DAILY 12/26/15 [History] oxyCODONE HCl [Oxycodone HCl] 1 tab PO BID 07/22/17 [History] Escitalopram Oxalate [Lexapro] 10 mg PO BEDTIME 09/23/17 [History] Propranolol [Inderal LA] 60 mg PO DAILY 09/23/17 [History] traZODone 100 mg PO BEDTIME 09/23/17 [History] hydrOXYzine HCl [hydrOXYzine] 25 mg PO QID PRN 02/23/18 [History] Levothyroxine [Synthroid] 50 mcg PO ACBREAKFAST 07/10/18 [History] Losartan [Cozaar] 75 mg PO DAILY 07/10/18 [History] busPIRone [Buspar] 30 mg PO DAILY 07/10/18 [History] Albuterol/Ipratropium [DuoNeb 3.0-0.5 MG/3 ML] 1 ampule INH Q6H PRN 12/20/18 [ History] Cyanocobalamin (Vitamin B12) [Vitamin B12] 1,000 mcg IM ASDIRECTED 12/20/18 [ History] Ibuprofen [Motrin] 800 mg PO TID PRN 12/20/18 [History] Meclizine [Antivert] 25 mg PO TID 12/20/18 [History] busPIRone HCl [Buspirone HCl] 15 mg PO BID@12,20 12/20/18 [History] oxyCODONE 5 mg PO ASDIRECTED 12/20/18 [History] Forms: ED Department Discharge Referrals: PCP,None [Primary Care Provider] - - Discharge Summary/Plan Comment DC Time >30 min.: No Discharge Summary/Plan Comment: Discharge via [place] [facility] to [place] for inpatient stay for suicide ideation with a plan. Pt wishes for admission, consents to transfer and wants help, states she doesn't want to commit suicide and is afraid to be home at this time. Pt is stable with physical health. Discussed pt discharge with pt and son is aware and supportive of pt. Discussed transfer with provider at [place]. Pt is nervous about going somewhere, when she knows no one at the other location. Reassured pt the staff and support for her will assist with these feelings and help her be at ease. Pt transferred in no acute distress. - General Info Date of Service: 12/21/18 Admission Dx/Problem (Free Text: suicide ideation with a plan, depression and anxiety. Subjective Update: Pt states she wants to get better and wants to work through this and doesn't want to have these suicidal thoughts. Functional Status: Reports: Pain Controlled, Tolerating Diet, Ambulating, Urinating - Review of Systems General: Reports: No Symptoms HEENT: Reports: Glasses. Denies: Headaches, Visual Changes Pulmonary: Reports: Cough. Denies: Shortness of Breath, Wheezing Cardiovascular: Denies: Chest Pain, Palpitations, Dyspnea on Exertion Gastrointestinal: Reports: Decreased Appetite. Denies: Abdominal Pain, Nausea, Vomiting Genitourinary: Denies: Dysuria, Frequency Musculoskeletal: Reports: Other (chronic pain, no acute pain at this time) Skin: Reports: No Symptoms Neurological: Reports: No Symptoms Psychiatric: Reports: Depression, Anxiety, Suicidal Ideation. Denies: Agitation , Homicidal Ideation - Patient Data Vitals - Most Recent: Last Vital Signs Temp 98.3 F 12/21/18 13:00 Pulse 76 12/21/18 13:00 Resp 19 12/21/18 13:00 BP 158/81 H 12/21/18 13:00 Pulse Ox 96 12/21/18 13:00 Med Orders - Current: Current Medications Discontinued Medications Albuterol (Ventolin Hfa) 0 gm INH Q4HR PRN PRN Reason: Shortness of Breath Albuterol/Ipratropium (Duoneb 3.0-0.5 Mg/3 Ml) 3 ml INH Q6H PRN PRN Reason: Shortness of Breath Aspirin (Halfprin) 81 mg PO DAILY [facility] Last Admin: 12/21/18 11:11 Dose: 81 mg Buspirone HCl (Buspar) 15 mg PO ONETIME ONE Stop: 12/20/18 18:55 Last Admin: 12/20/18 19:14 Dose: 15 mg Buspirone HCl (Buspar) Confirm Administered Dose 20 mg .ROUTE .STK-MED ONE Stop: 12/20/18 19:09 Last Admin: 12/20/18 19:13 Dose: Not Given Buspirone HCl (Buspar) 15 mg PO BID@1200,2000 [facility] Last Admin: 12/21/18 11:15 Dose: 15 mg Buspirone HCl (Buspar) 30 mg PO DAILY [facility] Duloxetine HCl (Cymbalta) 60 mg PO ONETIME ONE Stop: 12/20/18 18:55 Last Admin: 12/20/18 19:13 Dose: 60 mg Duloxetine HCl (Cymbalta) 60 mg PO BID [facility] Last Admin: 12/21/18 11:12 Dose: 60 mg Escitalopram Oxalate (Lexapro) 10 mg PO ONETIME ONE Stop: 12/20/18 18:55 Last Admin: 12/20/18 19:11 Dose: 10 mg Escitalopram Oxalate (Lexapro) 10 mg PO BEDTIME [facility] Esomeprazole Magnesium (Nexium) Confirm Administered Dose 40 mg .ROUTE .STK-MED ONE Stop: 12/21/18 05:59 Last Admin: 12/21/18 06:36 Dose: Not Given Esomeprazole Magnesium (Nexium) 40 mg PO ACBREAKFAST [facility] Last Admin: 12/21/18 11:12 Dose: 40 mg Hydroxyzine HCl (Atarax) 25 mg PO QID PRN PRN Reason: Anxiety Last Admin: 12/21/18 14:54 Dose: 25 mg Ibuprofen (Motrin) 800 mg PO TID PRN PRN Reason: Pain Levothyroxine Sodium (Synthroid) Confirm Administered Dose 50 mcg .ROUTE .[facility]- MED ONE Stop: 12/21/18 05:59 Last Admin: 12/21/18 06:36 Dose: Not Given Levothyroxine Sodium (Synthroid) 50 mcg PO ACBREAKFAST [facility] Last Admin: 12/21/18 11:12 Dose: 50 mcg Losartan Potassium (Cozaar) 75 mg PO DAILY [facility] Last Admin: 12/21/18 11:11 Dose: 75 mg Meclizine HCl (Antivert) 25 mg PO ONETIME ONE Stop: 12/20/18 18:56 Last Admin: 12/20/18 19:14 Dose: 25 mg Meclizine HCl (Antivert) 25 mg PO TID [facility] Last Admin: 12/21/18 14:23 Dose: Not Given Mometasone Furoate/Formoterol Fumar (Dulera 200-5 Mcg) 2 puff IH BID [facility] Last Admin: 12/21/18 11:14 Dose: Not Given Non-Formulary Medication (Aspirin [Halfprin]) 81 mg PO DAILY [facility] Non-Formulary Medication (Budesonide/Formoterol [Symbicort 160-4.5 Mcg]) 1 puff IH BID [facility] Last Admin: 12/20/18 23:04 Dose: Not Given Non-Formulary Medication (Buspirone Hcl [Buspirone Hcl]) 15 mg PO BID@12,20 [facility] Non-Formulary Medication (Buspirone [Buspar]) 30 mg PO DAILY [facility] Non-Formulary Medication (Duloxetine Hcl [Cymbalta]) 60 mg PO BID [facility] Non-Formulary Medication (Esomeprazole [Nexium]) 40 mg PO ACBREAKFAST [facility] Last Admin: 12/21/18 06:16 Dose: 40 mg Non-Formulary Medication (Levothyroxine [Synthroid]) 50 mcg PO ACBREAKFAST [facility] Last Admin: 12/21/18 06:16 Dose: 50 mcg Non-Formulary Medication (Losartan [Cozaar]) 75 mg PO DAILY [facility] Non-Formulary Medication (Meclizine [Antivert]) 25 mg PO TID [facility] Non-Formulary Medication (Oxycodone Hcl [Oxycodone Hcl]) 1 tab PO BID [facility] Non-Formulary Medication (Oxycodone [Oxycodone]) 5 mg PO ASDIRECTED [facility] Non-Formulary Medication (Propranolol [Inderal La]) 60 mg PO DAILY [facility] Non-Formulary Medication (Roflumilast [Daliresp]) 500 mcg PO DAILY [facility] Oxycodone HCl (Oxycodone) 5 mg PO ONETIME ONE Stop: 12/20/18 18:55 Last Admin: 12/20/18 19:12 Dose: 5 mg Oxycodone HCl (Oxycodone) Confirm Administered Dose 5 mg .ROUTE .STK-MED ONE Stop: 12/21/18 05:58 Last Admin: 12/21/18 06:36 Dose: Not Given Oxycodone HCl (Oxycodone) 5 mg PO BID [facility] Oxycodone HCl (Oxycodone) 5 mg PO MoWeFr@1200 [facility] Last Admin: 12/21/18 11:15 Dose: 5 mg Propranolol HCl (Inderal La) 60 mg PO DAILY [facility] Last Admin: 12/21/18 11:13 Dose: 60 mg Roflumilast (Daliresp) 500 mcg PO DAILY [facility] Last Admin: 12/21/18 11:12 Dose: 500 mcg Tiotropium [place] (Spiriva Handihaler) 18 mcg INH DAILY@1400 [facility] Last Admin: 12/21/18 14:22 Dose: Not Given Trazodone HCl (Trazodone) 100 mg PO ONETIME ONE Stop: 12/20/18 18:57 Last Admin: 12/20/18 19:13 Dose: 100 mg Trazodone HCl (Trazodone) 100 mg PO BEDTIME [facility] - Exam General: Reports: Alert, Oriented, Cooperative, No Acute Distress HEENT: Reports: Pupils Equal, Pupils Reactive, Mucous Membr. Moist/[place] Neck: Reports: Supple, Trachea Midline Lungs: Reports: Clear to Auscultation, Normal Respiratory Effort Cardiovascular: Reports: Regular Rate, Regular Rhythm GI/Abdominal Exam: Normal Bowel Sounds, Soft, Non-Tender Extremities: Normal Range of Motion, Non-Tender, No Pedal Edema Skin: Reports: Warm, Dry, Intact Neurological: Reports: No New Focal Deficit Psy/Mental Status: Reports: Alert, Anxious, Depressed, Suicidal Ideation. Denies: Agitated, Homicidal Ideation
== END 2018-12-21 14:50 ==
LOC: LB.ED 14:19 → LB.MS 19:03 → UNDOADMOB 19:20
PROVIDERS: ADMIT Nurse Practitioner Family; ATTEND Nurse Practitioner Family
DX: R45.851 Suicidal ideations (principal); F41.9 Anxiety disorder, unspecified; F32.9 Major depressive disorder, single episode, unspecified; G47.30 Sleep apnea, unspecified; J44.9 Chronic obstructive pulmonary disease, unspecified; K21.9 Gastro-esophageal reflux disease without esophagitis; I10 Essential (primary) hypertension; E03.9 Hypothyroidism, unspecified; Z79.899 Other long term (current) drug therapy; Z79.82 Long term (current) use of aspirin; Z79.891 Long term (current) use of opiate analgesic
CPT/HCPCS: 36415; 80053; 80307; 81001; 84443; 85025; 99285; A0425; A0429; A9270-GY; G0378; G0480

== ENCOUNTER 2019-02-14 13:03 | Emergency (ER) | payer MEDICARE, MEDICAID ==
[2019-02-14 13:25] VITALS: BP 113/76; PULSE 77
[2019-02-14] MEDS: LORazepam 0.5 MG Tab ONE ×2 (13:48→15:45)
--- NOTE | 2019-02-14 16:32 | CR ---
Date of Service: 02/14/19 Clinical Data: r/o AP PORTABLE CHEST: Comparison is made to a prior exam dated 11/15/18. The heart size is normal. There is calcification of the aortic arch. The lungs are mildly hyperexpanded. There are persistent linear densities in the left mid lung consistent with linear atelectasis or fibrosis. The lungs are otherwise clear. No pneumothorax. No pleural effusions. No significant changes from the prior study. [id number] [facility]
--- NOTE | 2019-02-14 17:45 | EDM.PDOCBH ---
ED HPI GENERAL MEDICAL PROBLEM - General Chief Complaint: Behavioral/Psych Stated Complaint: anxiety Time Seen by Provider: 02/14/19 13:16 Source of Information: Reports: Patient, Family History Limitations: Reports: No Limitations - History of Present Illness INITIAL COMMENTS - FREE TEXT/NARRATIVE: This is a 73yo F here for a panic attack and generalized anxiety. She states she has worsened since she has been off her buspar. She is wondering if there is something to calm her down this instant. Denies any other health concerns or complaints. Onset: Sudden Duration: Hour(s):, Constant Location: Reports: Generalized Severity: Moderate Improves with: Reports: None Worsens with: Reports: None Associated Symptoms: Reports: No Other Symptoms Middle Abdomen Pain Score (Numeric/FACES): 2 - Related Data Allergies Allergy/AdvReac Type Severity Reaction Status Date / Time milnacipran [From Savella] Allergy Cannot Verified 02/14/19 16:24 Remember nicotine [From Nicoderm CQ] Allergy Itching Verified 02/14/19 16:24 Penicillins Allergy Anaphylactic Verified 02/14/19 16:24 Shock tetracycline Allergy Cannot Verified 02/14/19 16:24 Remember diflunisal [From Dolobid] AdvReac Nausea Verified 02/14/19 16:24 gabapentin AdvReac Depression Verified 02/14/19 16:24 ketoprofen AdvReac Nausea Verified 02/14/19 16:24 lisinopril AdvReac Cannot Verified 02/14/19 16:24 Remember pregabalin [From Lyrica] AdvReac Cannot Verified 02/14/19 16:24 Remember Sulfa (Sulfonamide AdvReac Cannot Verified 02/14/19 16:24 Antibiotics) Remember Home Meds: Home Meds Albuterol [Ventolin HFA] 2 puff IH Q4HR PRN 07/08/15 [History] Budesonide/Formoterol [Symbicort 160-4.5 MCG] 1 puff IH BID 07/08/15 [History] DULoxetine HCl [Cymbalta] 60 mg PO BID 07/08/15 [History] Tiotropium [Spiriva HandiHaler] 1 inh INH DAILY@1400 07/08/15 [History] Aspirin [Halfprin] 81 mg PO DAILY 12/26/15 [History] Esomeprazole [NexIUM] 40 mg PO ACBREAKFAST 12/26/15 [History] Roflumilast [Daliresp] 500 mcg PO DAILY 12/26/15 [History] oxyCODONE HCl [Oxycodone HCl] 1 tab PO BID 07/22/17 [History] Escitalopram Oxalate [Lexapro] 10 mg PO BEDTIME 09/23/17 [History] Propranolol [Inderal LA] 60 mg PO DAILY 09/23/17 [History] traZODone 100 mg PO BEDTIME 09/23/17 [History] hydrOXYzine HCl [hydrOXYzine] 25 mg PO QID PRN 02/23/18 [History] Levothyroxine [Synthroid] 50 mcg PO ACBREAKFAST 07/10/18 [History] Losartan [Cozaar] 75 mg PO DAILY 07/10/18 [History] busPIRone [Buspar] 30 mg PO DAILY 07/10/18 [History] Albuterol/Ipratropium [DuoNeb 3.0-0.5 MG/3 ML] 1 ampule INH Q6H PRN 12/20/18 [ History] Cyanocobalamin (Vitamin B12) [Vitamin B12] 1,000 mcg IM ASDIRECTED 12/20/18 [ History] Ibuprofen [Motrin] 800 mg PO TID PRN 12/20/18 [History] Meclizine [Antivert] 25 mg PO TID 12/20/18 [History] busPIRone HCl [Buspirone HCl] 15 mg PO BID@12,20 12/20/18 [History] oxyCODONE 5 mg PO ASDIRECTED 12/20/18 [History] Past Medical History HEENT History: Reports: Impaired Vision Cardiovascular History: Reports: Hypertension Respiratory History: Reports: COPD Gastrointestinal History: Reports: Cholelithiasis, Chronic Diarrhea, GERD 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: Musculoskeletal History: Reports: Fibromyalgia, Osteoarthritis Psychiatric History: Reports: Anxiety, Depression, Emotional Problems, Panic Attack, Psych Hospitalization(s), PTSD, Suicide Attempt, Suicidal Ideation Endocrine/Metabolic History: Reports: Hypothyroidism Hematologic History: Reports: B12 Deficiency Oncologic (Cancer) History: Reports: Lung, Ovarian Dermatologic History: Reports: Eczema - Past Surgical History Respiratory Surgical History: Reports: Lung Resection, Other (See Below) Other Respiratory Surgeries/Procedures: Left Upper Lobectomy GI Surgical History: Reports: Cholecystectomy Female Surgical History: Reports: Other (See Below) Other Female Surgeries/Procedures: Ovarian Ca Endocrine Surgical History: Reports: None Musculoskeletal Surgical History: Reports: None Oncologic Surgical History: Reports: Lobectomy Social & Family History - Family History Family Medical History: Noncontributory Respiratory: Reports: COPD - Caffeine Use Caffeine Use: Reports: Coffee ED ROS GENERAL - Review of Systems Review Of Systems: ROS reveals no pertinent complaints other than HPI. ED EXAM, BEHAVIORAL HEALTH - Physical Exam Exam: See Below Exam Limited By: No Limitations General Appearance: Alert, WD/WN, Anxious Eye Exam: Bilateral Eye: EOMI, PERRL Ears: Normal External Exam Nose: Normal Inspection Throat/Mouth: Normal Inspection Head: Atraumatic, Normocephalic Neck: Normal Inspection, Supple, Non-Tender Respiratory/Chest: No Respiratory Distress, Lungs Clear, Normal Breath Sounds Cardiovascular: Normal Peripheral Pulses, Regular Rate, Rhythm GI/Abdominal: Normal Bowel Sounds, Soft, Non-Tender Back Exam: Normal Inspection Extremities: Normal Inspection Neurological: Alert, CN II-XII Intact, No Motor/Sensory Deficits Psychiatric: Restless, Agitated COURSE, BEHAVIORAL HEALTH COMP - Course Vital Signs: Last Vital Signs Temp 36.9 C 02/14/19 13:16 Pulse 77 02/14/19 13:16 Resp 24 H 02/14/19 13:16 BP 113/76 02/14/19 13:16 Pulse Ox Orders, Labs, Meds: Active Orders 24 hr Category Date Time Status CULTURE SPUTUM + SMEAR [RM] Stat Lab 02/14/19 13:43 Received Medications Discontinued Medications Generic Name Dose Route Start Last Admin Trade Name Mitch PRN Reason Stop Dose Admin Lorazepam Confirm 02/14/19 13:54 02/14/19 13:48 Ativan Administered 02/14/19 13:55 0.5 mg Dose Administration 0.5 mg .ROUTE .STK-MED ONE Lorazepam Confirm 02/14/19 15:56 02/14/19 15:45 Ativan Administered 02/14/19 15:57 0.5 mg Dose Administration 0.5 mg .ROUTE .STK-MED ONE Departure - Departure Time of Disposition: 15:00 Disposition: Home, Self-Care 01 Condition: Good Clinical Impression: Panic disorder, Panic attack as reaction to stress - Discharge Information Instructions: Buspirone tablets, Levofloxacin tablets, Prednisone tablets Referrals: Marii Stuart, ASSAYER [Primary Care Provider] - Forms: ED Department Discharge Additional Instructions: You have been given 3 prescriptions to fill at the pharmacy. Please take the levofloxacin and the prednisone once daily for 10 days. Please take the buspar three times a day. - Problem List & Annotations (1) Anxiety SNOMED Code(s): 29334328 Code(s): F41.9 - ANXIETY DISORDER, UNSPECIFIED Status: Acute Priority: High (2) Panic attack as reaction to stress SNOMED Code(s): 136980709 Code(s): F41.0 - PANIC DISORDER [EPISODIC PAROXYSMAL ANXIETY]; F43.0 - ACUTE STRESS REACTION Status: Acute Priority: High Onset Date: 08/04/15 (3) Panic disorder SNOMED Code(s): 130804700 Code(s): F41.0 - PANIC DISORDER [EPISODIC PAROXYSMAL ANXIETY] Status: Acute Priority: High (4) COPD exacerbation SNOMED Code(s): 682056292, 818699316 Code(s): J44.1 - CHRONIC OBSTRUCTIVE PULMONARY DISEASE W (ACUTE) EXACERBATION Status: Suspected Priority: Medium - Problem List Review Problem List Initiated/Reviewed/Updated: Yes - My Orders Last 24 Hours: My Active Orders 02/14/19 13:43 CULTURE SPUTUM + SMEAR [RM] Stat - Assessment/Plan Last 24 Hours: My Active Orders 02/14/19 13:43 CULTURE SPUTUM + SMEAR [RM] Stat Plan: Counseled on panic disorder and management. Discussed return to use of buspar as it has worked well for her in the past. Counseled on supportive care and f/u with her PCP for further management. Discussed COPD exacerbation concerns due to increase cough, chest congestion and sputum production. Prednisone burst and antibiotics sent to pharmacy. Discussed close monitoring and f/u as directed. F/ u if any concerns.
== END 2019-02-14 15:45 | disposition home or self-care (01) ==
LOC: LB.ED 13:03
DX: F41.0 Panic disorder [episodic paroxysmal anxiety] (principal); F43.0 Acute stress reaction; I10 Essential (primary) hypertension; J44.9 Chronic obstructive pulmonary disease, unspecified; F41.9 Anxiety disorder, unspecified; F32.9 Major depressive disorder, single episode, unspecified; E03.9 Hypothyroidism, unspecified; K21.9 Gastro-esophageal reflux disease without esophagitis; Z88.0 Allergy status to penicillin; Z88.2 Allergy status to sulfonamides; Z88.8 Allergy status to other drugs, medicaments and biological substances; Z88.6 Allergy status to analgesic agent; Z79.82 Long term (current) use of aspirin; Z79.899 Other long term (current) drug therapy; Z79.51 Long term (current) use of inhaled steroids
CPT/HCPCS: 71045; 87070; 87205; 99283; 99283-25; A9270-GY

== ENCOUNTER → 2019-03-02 | Outpatient (CLI) | payer MEDICARE, MEDICAID ==
--- NOTE | 2019-03-03 09:12 | CR ---
Date of Service: 03/02/19 Clinical Data: Unspecified fall, initial encounter,Pain in right knee, Unspecified place in RIGHT KNEE: No priors. Minimal osteoarthritic changes. There is a small joint effusion. No acute abnormalities. No lytic or blastic bone lesions. There are vascular calcifications in the soft tissues. [id number] [facility]
== END ==
LOC: LB.CLINIC 13:42
PROVIDERS: ATTEND Nurse Practitioner Family
DX: J02.9 Acute pharyngitis, unspecified (principal); M79.89 Other specified soft tissue disorders; M25.561 Pain in right knee; R32 Unspecified urinary incontinence; M17.11 Unilateral primary osteoarthritis, right knee; M25.461 Effusion, right knee; I70.90 Unspecified atherosclerosis; W19.XXXA Unspecified fall, initial encounter
CPT/HCPCS: 36415; 73562-RT; 80048; 81001; 85025; 85379

== ENCOUNTER → 2019-03-07 | Outpatient (CLI) | payer MEDICARE, MEDICAID ==
--- NOTE | 2019-03-07 12:35 | US ---
Date of Study: 03/07/19 Clinical Data: LOW LEG RIGHT LEG VENOUS DOPPLER: Negative for DVT. There is an oval-shaped sonolucent structure in the popliteal fossa consistent with the appearance of a Kelsey cyst. There is some echogenic debris within it. The exam is otherwise negative. [id number]
== END ==
LOC: LB.DI 10:31
PROVIDERS: ATTEND Nurse Practitioner Family
DX: M79.89 Other specified soft tissue disorders (principal); D64.9 Anemia, unspecified
CPT/HCPCS: 36415; 82728; 84443; 85018; 93971-RT

== ENCOUNTER 2019-12-09 15:09 | Emergency (ER) | payer MEDICARE, MEDICAID | END 2019-12-09 17:08 | disposition home or self-care (01) | LOC: LB.ED 15:09 | DX: Z53.21 Procedure and treatment not carried out due to patient leaving prior to being seen by health care provider (principal); Z20.828 Contact with and (suspected) exposure to other viral communicable diseases | CPT/HCPCS: U0002 ==

== ENCOUNTER 2020-03-30 14:22 | Emergency (ER) | payer MEDICARE, MEDICAID ==
[~2020-03-30 14:22] MED LIST: predniSONE 20 MG Tab ONE
[2020-03-30] MEDS: Albuterol/Ipratropium 3.0-0.5 MG/3 ML Neb Soln NEB PRN (15:25)
[2020-03-30] MEDS: methylPREDNISolone Sodium Succinate 40 MG/1 ML SDV ONE (15:46)
[2020-03-30] MEDS: Albuterol/Ipratropium 3.0-0.5 MG/3 ML Neb Soln ONE (15:46)
[2020-03-30] MEDS: methylPREDNISolone Sodium Succinate 40 MG/1 ML SDV IM ONE (15:46)
[2020-03-30 16:08] VITALS: BP 154/59; PULSE 70
--- NOTE | 2020-03-30 16:41 | EDM.PDOC ---
ED HPI GENERAL MEDICAL PROBLEM - General Chief Complaint: Respiratory Problem Stated Complaint: respiratory Time Seen by Provider: 03/30/20 15:00 Source of Information: Reports: Patient History Limitations: Reports: No Limitations - History of Present Illness INITIAL COMMENTS - FREE TEXT/NARRATIVE: Patient is a 74 y/o female who presents from the [facility]) for wheezing, shortness of breath, and coughing today. She was tested for COVID last and it was negative. No fever, no hypoxemia, no chest pain, no N/V/D, no dysuria, no diarrhea/constipation, no dizziness, and no headache. 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 Left Upper Leg Pain Score (Numeric/FACES): 4 - Related Data Allergies Allergy/AdvReac Type Severity Reaction Status Date / Time milnacipran [From Savella] Allergy Cannot Verified 03/30/20 16:25 Remember nicotine [From Nicoderm CQ] Allergy Itching Verified 03/30/20 16:25 Penicillins Allergy Anaphylactic Verified 03/30/20 16:25 Shock tetracycline Allergy Cannot Verified 03/30/20 16:25 Remember diflunisal [From Dolobid] AdvReac Nausea Verified 03/30/20 16:25 gabapentin AdvReac Depression Verified 03/30/20 16:25 ketoprofen AdvReac Nausea Verified 03/30/20 16:25 lisinopril AdvReac Cannot Verified 03/30/20 16:25 Remember pregabalin [From Lyrica] AdvReac Cannot Verified 03/30/20 16:25 Remember Sulfa (Sulfonamide AdvReac Cannot Verified 03/30/20 16:25 Antibiotics) Remember Home Meds: Home Meds Albuterol [Ventolin HFA] 2 puff IH Q4HR PRN 07/08/15 [History] Budesonide/Formoterol [Symbicort 160-4.5 MCG] 1 puff IH BID 07/08/15 [History] DULoxetine HCl [Cymbalta] 60 mg PO DAILY 07/08/15 [History] Tiotropium [Spiriva HandiHaler] 1 inh INH DAILY@1400 07/08/15 [History] Roflumilast [Daliresp] 500 mcg PO DAILY 12/26/15 [History] oxyCODONE HCl [Oxycodone HCl] 1 tab PO BID 07/22/17 [History] Escitalopram Oxalate [Lexapro] 10 mg PO BEDTIME 09/23/17 [History] Propranolol [Inderal LA] 60 mg PO DAILY 09/23/17 [History] traZODone 100 mg PO BEDTIME 09/23/17 [History] Levothyroxine [Synthroid] 50 mcg PO ACBREAKFAST 07/10/18 [History] Albuterol/Ipratropium [DuoNeb 3.0-0.5 MG/3 ML] 1 ampule INH Q6H PRN 12/20/18 [History] Cyanocobalamin (Vitamin B12) [Vitamin B12] 1,000 mcg IM ASDIRECTED 12/20/18 [History] busPIRone HCl [Buspirone HCl] 15 mg PO TID@08,12,20 12/20/18 [History] DULoxetine HCl [Cymbalta] 30 mg PO DAILY 03/03/19 [History] Enoxaparin Sodium [Lovenox] 60 mg SQ Q12H 03/03/19 [History] L. 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: Musculoskeletal History: Reports: Fibromyalgia, Osteoarthritis Psychiatric History: Reports: Anxiety, Depression, Emotional Problems, Panic Attack, Psych Hospitalization(s), PTSD, Suicide Attempt, Suicidal Ideation Endocrine/Metabolic History: Reports: Hypothyroidism Hematologic History: Reports: B12 Deficiency Oncologic (Cancer) History: Reports: Lung, Ovarian Dermatologic History: Reports: Eczema - Infectious Disease History Infectious Disease History: Reports: Chicken Pox, Measles, Mumps - Past Surgical History HEENT Surgical History: Reports: None Cardiovascular Surgical History: Reports: None Respiratory Surgical History: Reports: Lung Resection, Other (See Below) Other Respiratory Surgeries/Procedures: Left Upper Lobectomy GI Surgical History: Reports: Cholecystectomy Female Surgical History: Reports: Other (See Below) Other Female Surgeries/Procedures: Ovarian Ca Endocrine Surgical History: Reports: None Musculoskeletal Surgical History: Reports: None Oncologic Surgical History: Reports: Lobectomy Dermatological Surgical History: Reports: None Social & Family History - Family History Family Medical History: No Pertinent Family History Respiratory: Reports: COPD - Tobacco Use Tobacco Use Status *Q: Former Tobacco User Used Tobacco, but Quit: Yes Month/Year Tobacco Last Used: 09/2018 Second Hand Smoke Exposure: Yes - Caffeine Use Caffeine Use: Reports: Coffee - Recreational Drug Use Recreational Drug Use: No ED ROS GENERAL - Review of Systems Review Of Systems: See Below Constitutional: Reports: No Symptoms HEENT: Reports: No Symptoms Respiratory: Reports: Shortness of Breath, Wheezing, Cough Cardiovascular: Reports: No Symptoms Endocrine: Reports: No Symptoms GI/Abdominal: Reports: No Symptoms : Reports: No Symptoms Musculoskeletal: Reports: No Symptoms Skin: Reports: No Symptoms Neurological: Reports: No Symptoms Psychiatric: Reports: No Symptoms ED EXAM, GENERAL - Physical Exam Exam: See Below Exam Limited By: No Limitations General Appearance: Alert, No Apparent Distress Head: Atraumatic, Normocephalic Neck: Normal Inspection, Supple Respiratory/Chest: No Respiratory Distress, No Accessory Muscle Use, Chest Non- Tender, Wheezing, Other (diffuse wheezing and decreased BS bilaterally) Cardiovascular: Normal Peripheral Pulses, Regular Rate, Rhythm, No Edema, No Murmur Neurological: Alert, Oriented Psychiatric: Normal Affect, Normal Mood Skin Exam: Warm, Dry, Intact, Normal Color, No Rash Course - Vital Signs Text/Narrative:: COVID, FLU, and STREP negative. Patient given solumedrol and duo-neb with improvement in lung sounds. CXR negative for pneumonia. Last Recorded V/S: Last Vital Signs Temp 36.1 C 03/30/20 16:06 Pulse 70 03/30/20 16:06 Resp 16 03/30/20 16:06 BP 154/59 H 03/30/20 16:06 Pulse Ox 100 03/30/20 16:06 - Orders/Labs/Meds Orders: Active Orders 24 hr Category Date Time Status RT Aerosol Therapy [RC] ASDIRECTED Care 03/30/20 15:24 Active Chest 2V [CR] Stat Exams 03/30/20 15:21 Taken CULTURE STREP A CONFIRMATION [RM] Stat Lab 03/30/20 15:42 Results STREP SCRN A RAPID W CULT CONF [RM] Stat Lab 03/30/20 15:42 Results Albuterol/Ipratropium [DuoNeb 3.0-0.5 MG/3 ML] Med 03/30/20 15:23 Active 3 ml NEB Q2H PRN Isolation [COMM] Routine Oth 03/30/20 15:25 Active Medication Orders Albuterol/Ipratropium (Duoneb 3.0-0.5 Mg/3 Ml) 3 ml NEB Q2H PRN PRN Reason: Wheezing Last Admin: 03/30/20 15:25 Dose: 3 ml Documented by: EDI Labs: Laboratory Tests 03/30/20 Range/Units 14:35 SARS CoV-2 RNA Rapid GIULIA Negative Meds: Medications Generic Name Dose Route Start Last Admin Trade Name Freq PRN Reason Stop Dose Admin Albuterol/Ipratropium 3 ml 03/30/20 15:23 03/30/20 15:25 Duoneb 3.0-0.5 Mg/3 Ml NEB 3 ml Q2H PRN Administration Wheezing Discontinued Medications Generic Name Dose Route Start Last Admin Trade Name Freq PRN Reason Stop Dose Admin Albuterol/Ipratropium Confirm 03/30/20 15:29 03/30/20 15:46 Duoneb 3.0-0.5 Mg/3 Ml Administered 03/30/20 15:30 Not Given Dose 3 ml .ROUTE .STK-MED ONE Methylprednisolone Sodium Succinate 80 mg 03/30/20 15:22 03/30/20 15:46 Solu-Medrol IM 03/30/20 15:23 80 mg ONETIME ONE Administration Methylprednisolone Sodium Succinate Confirm 03/30/20 15:45 03/30/20 15:46 Solu-Medrol Administered 03/30/20 15:46 Not Given Dose 80 mg .ROUTE .STK-MED ONE Departure - Departure Time of Disposition: 16:45 Disposition: Home, Self-Care 01 Condition: Good Clinical Impression: COPD exacerbation - Discharge Information *PRESCRIPTION DRUG MONITORING PROGRAM REVIEWED*: Not Applicable *COPY OF PRESCRIPTION DRUG MONITORING REPORT IN PATIENT WARREN: Not Applicable Instructions: Chronic Obstructive Pulmonary Disease Exacerbation, [id number] Referrals: PCP,None [Primary Care Provider] - Forms: ED Department Discharge Sepsis Event Note (ED) - Evaluation Sepsis Screening Result: No Definite Risk - Focused Exam Vital Signs: Vital Signs Temp Pulse Resp BP Pulse Ox 03/30/20 16:06 36.1 C 70 16 154/59 H 100 - My Orders Last 24 Hours: My Active Orders 03/30/20 15:21 Chest 2V [CR] Stat 03/30/20 15:23 Albuterol/Ipratropium [DuoNeb 3.0-0.5 MG/3 ML] 3 ml NEB Q2H PRN 03/30/20 15:24 RT Aerosol Therapy [RC] ASDIRECTED 03/30/20 15:25 Isolation [COMM] Routine 03/30/20 15:42 CULTURE STREP A CONFIRMATION [RM] Stat STREP SCRN A RAPID W CULT CONF [RM] Stat - Assessment/Plan Last 24 Hours: My Active Orders 03/30/20 15:21 Chest 2V [CR] Stat 03/30/20 15:23 Albuterol/Ipratropium [DuoNeb 3.0-0.5 MG/3 ML] 3 ml NEB Q2H PRN 03/30/20 15:24 RT Aerosol Therapy [RC] ASDIRECTED 03/30/20 15:25 Isolation [COMM] Routine 03/30/20 15:42 CULTURE STREP A CONFIRMATION [RM] Stat STREP SCRN A RAPID W CULT CONF [RM] Stat Plan: prednisone 40 mg PO daily with breakfast x 4 days starting tomorrow. Duonebs every 4 hours while awake. Incentive spirometer every 4 hours while awake. Nursing will check on patient tomorrow morning.
[2020-03-30] MEDS ORDERED: predniSONE 20 MG Tab ONE ×3 (16:42→16:56)
--- NOTE | 2020-03-31 14:33 | CR ---
DATE OF SERVICE: 03/30/20 CLINICAL DATA: wheezing PA AND LATERAL CHEST: Comparison is made to a prior exam dated 02/14/19. The heart size is normal. There is calcification of the aortic arch. There are linear densities in both lungs consistent with linear atelectasis or fibrosis. The lungs are otherwise clear. No pneumothorax. No pleural effusions. [id number] MTDD
== END 2020-03-30 16:50 | disposition home or self-care (01) ==
LOC: LB.ED 14:22
DX: J44.1 Chronic obstructive pulmonary disease with (acute) exacerbation (principal); I10 Essential (primary) hypertension; K21.9 Gastro-esophageal reflux disease without esophagitis; F41.9 Anxiety disorder, unspecified; F32.9 Major depressive disorder, single episode, unspecified; E03.9 Hypothyroidism, unspecified; Z20.828 Contact with and (suspected) exposure to other viral communicable diseases; Z88.0 Allergy status to penicillin; Z88.1 Allergy status to other antibiotic agents; Z88.8 Allergy status to other drugs, medicaments and biological substances; Z88.2 Allergy status to sulfonamides; Z90.49 Acquired absence of other specified parts of digestive tract; Z87.891 Personal history of nicotine dependence; Z79.899 Other long term (current) drug therapy
CPT/HCPCS: 71046; 87081; 87430; 87804; 87804-59; 96372; 99285-25; J2920; J7512; J7620-GY; U0002

== ENCOUNTER 2020-04-29 16:30 | Observation (INO) | payer MEDICARE, MEDICAID ==
[2020-04-29] MEDS ORDERED: Albuterol 8 GM Inhaler INH PRN (19:39)
[2020-04-29] MEDS ORDERED: Escitalopram 20 MG Tab PO SCH (20:15)
[2020-04-29] MEDS ORDERED: Cyclobenzaprine 10 MG Tab PO SCH (20:15)
[2020-04-29] MEDS ORDERED: busPIRone 15 MG Tab PO SCH (20:15)
[2020-04-29] MEDS ORDERED: traZODone 100 MG Tab PO SCH (20:15)
[2020-04-29] MEDS ORDERED: Divalproex Sodium Delayed-Release 125 MG Cap.Sprink PO SCH (20:15)
[2020-04-29] MEDS: DIVALPROEX SODIUM 125 MG PO SCH (20:45)
[2020-04-29] MEDS ORDERED: TRAZODONE 50 MG PO SCH (20:45)
[2020-04-29] MEDS ORDERED: ESCITALOPRAM 10 MG PO SCH (20:45)
[2020-04-29] MEDS ORDERED: CYCLOBENZAPRINE 10 MG PO SCH (20:45)
[2020-04-29] MEDS: BUSPIRONE 15 MG PO SCH (20:45)
[2020-04-29] MEDS ORDERED: Melatonin 3 MG Tab PO PRN (22:19)
[2020-04-29] MEDS ORDERED: Acetaminophen 325 MG Tab PO PRN (22:19)
[2020-04-29] MEDS ORDERED: Ondansetron 4 MG/2 ML SDV IVPUSH PRN (22:50)
[2020-04-29] MEDS ORDERED: Sodium Chloride 0.9% 10 ML Syringe FLUSH PRN (22:50)
[2020-04-29] MEDS ORDERED: Albuterol/Ipratropium 3.0-0.5 MG/3 ML Neb Soln NEB PRN (23:59)
[2020-04-30] MEDS ORDERED: TIOTROPIUM 18 MCG INH ONE (00:07)
[2020-04-30] MEDS ORDERED: PANTOPRAZOLE 40 MG PO SCH (07:00)
[2020-04-30] MEDS ORDERED: LEVOTHYROXINE 75 MCG PO SCH (07:00)
[2020-04-30] MEDS ORDERED: PROPRANOLOL 60 MG PO SCH (08:00)
[2020-04-30] MEDS ORDERED: ROFLUMILAST 500 MCG PO SCH (08:00)
[2020-04-30] MEDS ORDERED: Non-Formulary Medication 1 Each PO SCH ×2 (08:00)
[2020-04-30] MEDS ORDERED: DULOXETINE 60 MG PO SCH (08:00)
[2020-04-30] MEDS: DIVALPROEX SODIUM 125 MG PO SCH ×2 (08:15→13:12)
[2020-04-30] MEDS: BUSPIRONE 15 MG PO SCH ×2 (08:15→13:14)
[2020-04-30] MEDS ORDERED: Cyanocobalamin (Vitamin B12) 1,000 MCG/ML SDV IM ONE (10:08)
[2020-04-30] MEDS ORDERED: Cyanocobalamin (Vitamin B12) 1,000 MCG/ML SDV ONE (13:08)
[2020-04-30 14:27] VITALS: BP 142/70; PULSE 71
--- NOTE | 2020-04-30 17:29 | PCM.DCSUM1 ---
Discharge Summary - Discharge Data Discharge Disposition: DC/Tfer to Other 70 Condition: Good - Referral to Home Health Primary Care Physician: Rosalinda Flowers NP - Patient Summary/Data Consults: Consultations 04/29/20 21:10 PT Evaluation and Treatment [CONS] Routine Please Evaluate and Treat. PT Reason for Consult: Strengthening This query below is only for informational purposes and is not editable. Admission Diagnosis/Problem: Altered mental status 04/29/20 21:11 OT Evaluation and Treatment [CONS] Routine Please Evaluate and Treat. OT Reason for Consult: Strengthening This query below is only for informational purposes and is not editable. Admission Diagnosis/Problem: Altered mental status - Discharge Plan Home Medications: Home Meds Roflumilast [Daliresp] 500 mcg PO DAILY 12/26/15 [History] oxyCODONE HCl [Oxycodone HCl] 1 tab PO DAILY 07/22/17 [History] Escitalopram Oxalate [Lexapro] 10 mg PO BEDTIME 09/23/17 [History] Propranolol [Inderal LA] 60 mg PO DAILY 09/23/17 [History] traZODone 100 mg PO BEDTIME 09/23/17 [History] Cyanocobalamin (Vitamin B12) [Vitamin B12] 1,000 mcg IM ASDIRECTED 12/20/18 [History] busPIRone HCl [Buspirone HCl] 15 mg PO TID@08,,12/20/18 [History] Pantoprazole Sodium [Protonix] 40 mg PO DAILY 03/03/19 [History] DULoxetine HCl [Cymbalta] 120 mg PO DAILY 03/30/20 [History] Divalproex Sodium 125 mg PO TID 03/30/20 [History] L. Acidophilus/Pectin, [place] [Acidophilus Capsule] 1 cap PO DAILY 03/30/20 [History] Levothyroxine 75 mcg PO DAILY 03/30/20 [History] Olmesartan Medoxomil 30 mg PO DAILY 03/30/20 [History] Cyclobenzaprine [Flexeril] 10 mg PO TID 04/29/20 [History] - Patient Data Vitals - Most Recent: Last Vital Signs Temp 97.6 F 04/30/20 12:00 Pulse 71 04/30/20 12:00 Resp 20 04/30/20 12:00 BP 142/70 H 04/30/20 12:00 Pulse Ox 98 04/30/20 12:00 Weight - Most Recent: 163 lb Lab Results - Last 24 hrs: Laboratory Results - last 24 hr 04/30/20 Range/Units 08:00 ESR 28 (0-30) mm/hr Med Orders - Current: Current Medications Discontinued Medications Acetaminophen (Tylenol) 650 mg PO Q4H PRN PRN Reason: Pain Albuterol (Ventolin Hfa) 0 gm INH Q4H PRN PRN Reason: Cough Albuterol/Ipratropium (Duoneb 3.0-0.5 Mg/3 Ml) 3 ml NEB Q6H PRN PRN Reason: Shortness of Breath Buspirone HCl (Buspar) 15 mg PO TID [facility] Last Admin: 04/29/20 20:59 Dose: 15 mg Documented by: Buspirone HCl (Buspar) 15 mg PO TID [facility] [place] Last Admin: 04/30/20 13:14 Dose: 15 mg Documented by: Cyanocobalamin (Vitamin B12) 1,000 mcg IM ONETIME ONE Stop: 04/30/20 10:09 Last Admin: 04/30/20 13:14 Dose: 1,000 mcg Documented by: Cyanocobalamin (Vitamin B12) Confirm Administered Dose 1,000 mcg .ROUTE .STK-MED ONE Stop: 04/30/20 13:09 Cyclobenzaprine HCl (Flexeril) 10 mg PO BEDTIME [facility] [place] Last Admin: 04/29/20 20:59 Dose: 10 mg Documented by: Cyclobenzaprine HCl (Flexeril) 10 mg PO BEDTIME [facility] [place] Last Admin: 04/29/20 20:45 Dose: 10 mg Documented by: Divalproex Sodium (Depakote Sprinkle) 125 mg PO TID@0800,1200,1999 [facility] [place] Last Admin: 04/29/20 20:59 Dose: 125 mg Documented by: Divalproex Sodium (Depakote Sprinkle) 125 mg PO TID@0800,1200,1999 [facility] [place] Last Admin: 04/30/20 13:12 Dose: 125 mg Documented by: Duloxetine HCl (Cymbalta) 120 mg PO DAILY [facility] [place] Last Admin: 04/30/20 08:15 Dose: 120 mg Documented by: Escitalopram Oxalate (Lexapro) 10 mg PO BEDTIME [facility] [place] Last Admin: 04/29/20 20:59 Dose: 10 mg Documented by: Levothyroxine Sodium (Levothyroxine) 75 mcg PO ACBREAKFAST [facility] [place] Last Admin: 04/30/20 08:16 Dose: 75 mcg Documented by: Melatonin (Melatonin) 3 mg PO BEDTIME PRN PRN Reason: Sleep Last Admin: 04/29/20 22:46 Dose: 3 mg Documented by: Non-Formulary Medication (Nf Drug) 1 each PO DAILY [facility] [place] Non-Formulary Medication (Nf Drug) 1 each PO DAILY [facility] [place] Ondansetron HCl (Zofran) 4 mg IVPUSH Q6H PRN PRN Reason: Nausea/Vomiting Oxycodone HCl (Oxycodone) 5 mg PO DAILY [facility] [place] Last Admin: 04/30/20 08:20 Dose: 5 mg Documented by: Pantoprazole Sodium (Protonix) 40 mg PO ACBREAKFAST [facility] [place] Last Admin: 04/30/20 08:16 Dose: 40 mg Documented by: Escitalopram 10 Mg (Tab *Pt Own Med*) 0 each PO BEDTIME [facility] [place] Last Admin: 04/29/20 20:45 Dose: 1 each Documented by: Propranolol HCl (Inderal [place]) 60 mg PO DAILY [facility] [place] Last Admin: 04/30/20 08:17 Dose: 60 mg Documented by: Roflumilast (Daliresp) 500 mcg PO DAILY [facility] [place] Last Admin: 04/30/20 08:17 Dose: 500 mcg Documented by: Sodium Chloride (Saline Flush) 10 ml FLUSH ASDIRECTED PRN PRN Reason: Keep Vein Open Tiotropium [place] (Spiriva Handihaler) 18 mcg INH ONETIME ONE Stop: 04/30/20 00:08 Last Admin: 04/30/20 03:04 Dose: Not Given Documented by: Trazodone HCl (Trazodone) 100 mg PO BEDTIME [facility] [place] Last Admin: 04/29/20 21:00 Dose: 100 mg Documented by: Trazodone HCl (Trazodone) 100 mg PO BEDTIME [facility] [place] Last Admin: 04/29/20 20:45 Dose: 100 mg Documented by:
== END 2020-04-30 15:00 | disposition other institution (70) ==
LOC: LB.MS 16:30
PROVIDERS: ADMIT Registered Nurse; ATTEND Registered Nurse
DX: R41.82 Altered mental status, unspecified (principal); Z88.8 Allergy status to other drugs, medicaments and biological substances; Z88.0 Allergy status to penicillin; Z88.2 Allergy status to sulfonamides; Z88.1 Allergy status to other antibiotic agents; Z91.048 Other nonmedicinal substance allergy status; Z79.899 Other long term (current) drug therapy; Z90.49 Acquired absence of other specified parts of digestive tract; Z90.89 Acquired absence of other organs; Z98.890 Other specified postprocedural states; Z87.891 Personal history of nicotine dependence
CPT/HCPCS: 36415; 85651; 96372; 97161-GP; 97165-GO; A9270-GY; G0378; G0379; J3420

== ENCOUNTER 2020-04-30 12:56 | Inpatient (IN) | payer MEDICARE, MEDICAID ==
[2020-04-30] MEDS ORDERED: Non-Formulary Medication 1 Each (Cyanocobalamin (Vitamin B12) [Vitamin B12] 1,000 MCG) IM SCH (15:45)
[2020-04-30] MEDS ORDERED: OLMESARTAN MEDOXOMIL PO SCH (15:45)
[2020-04-30] MEDS: CYCLOBENZAPRINE 10 MG PO PRN (19:58)
[2020-04-30] MEDS: ESCITALOPRAM 10 MG PO SCH (19:58)
[2020-04-30] MEDS: BUSPAR 15 MG PO SCH (19:58)
[2020-04-30] MEDS: TRAZODONE 50 MG PO SCH (19:58)
[2020-04-30] MEDS ORDERED: Non-Formulary Medication 1 Each (Cyclobenzaprine [Flexeril] 10 MG) PO SCH (20:00)
[2020-05-01] MEDS: LEVOTHYROXINE 75 MCG PO SCH (06:41)
[2020-05-01] MEDS ORDERED: DULOXETINE HCL 120 MG PO SCH (08:00)
[2020-05-01] MEDS ORDERED: Albuterol 0.083% 2.5 MG/3 ML Neb Soln NEB PRN (08:33)
[2020-05-01] MEDS ORDERED: Calcium Carbonate 500 MG Tab.Chew PO PRN ×2 (08:35→08:49)
[2020-05-01] MEDS: BUSPAR 15 MG PO SCH ×3 (09:08→19:17)
[2020-05-01] MEDS: PECTIN CITRUS PO SCH (09:10)
[2020-05-01] MEDS: ACIDOPHILUS PO SCH (09:10)
[2020-05-01] MEDS: OLMESARTAN 20 MG PO SCH (09:11)
[2020-05-01] MEDS: DULOXETINE 60 MG PO SCH (09:11)
[2020-05-01] MEDS: Non-Formulary Medication 1 Each (Pantoprazole Sodium [Protonix] 40 MG) PO SCH (09:13)
[2020-05-01] MEDS: PROPRANOLOL 60 MG PO SCH (09:13)
[2020-05-01] MEDS: Non-Formulary Medication 1 Each (Roflumilast [Daliresp] 500 MCG) PO SCH (09:14)
[2020-05-01] MEDS: Tiotropium Inhaler 18 MCG Inhalation Powder Cap Kit of 5 INH SCH (09:15)
[2020-05-01] MEDS ORDERED: Ibuprofen 800 MG Tab PO PRN (17:56)
[2020-05-01] MEDS: ESCITALOPRAM 10 MG PO SCH (19:16)
[2020-05-01] MEDS: TRAZODONE 50 MG PO SCH (19:17)
[2020-05-01] MEDS: CYCLOBENZAPRINE 10 MG PO PRN (19:19)
[2020-05-01] MEDS: SYMBICORT 160/4.5MCG INH SCH (19:19)
[2020-05-02] MEDS: LEVOTHYROXINE 75 MCG PO SCH (06:34)
[2020-05-02] MEDS: Non-Formulary Medication 1 Each (Roflumilast [Daliresp] 500 MCG) PO SCH (08:12)
[2020-05-02] MEDS: ACIDOPHILUS PO SCH (08:12)
[2020-05-02] MEDS: PECTIN CITRUS PO SCH (08:12)
[2020-05-02] MEDS: Non-Formulary Medication 1 Each (Pantoprazole Sodium [Protonix] 40 MG) PO SCH (08:12)
[2020-05-02] MEDS: SYMBICORT 160/4.5MCG INH SCH ×2 (08:12→20:33)
[2020-05-02] MEDS: DULOXETINE 60 MG PO SCH (08:13)
[2020-05-02] MEDS: BUSPAR 15 MG PO SCH ×3 (08:13→20:31)
[2020-05-02] MEDS: OLMESARTAN 20 MG PO SCH (08:13)
[2020-05-02] MEDS: Tiotropium Inhaler 18 MCG Inhalation Powder Cap Kit of 5 INH SCH (10:26)
[2020-05-02] MEDS: PROPRANOLOL 60 MG PO SCH (10:26)
[2020-05-02] MEDS: CYCLOBENZAPRINE 10 MG PO PRN (20:31)
[2020-05-02] MEDS: ESCITALOPRAM 10 MG PO SCH (20:31)
[2020-05-02] MEDS: TRAZODONE 50 MG PO SCH (20:31)
[2020-05-03] MEDS: LEVOTHYROXINE 75 MCG PO SCH (06:24)
[2020-05-03] MEDS: OLMESARTAN 20 MG PO SCH (08:25)
[2020-05-03] MEDS: CYCLOBENZAPRINE 10 MG PO PRN (08:27)
[2020-05-03] MEDS: IBUPROFEN 800 MG PO PRN (08:28)
[2020-05-03] MEDS: BUSPAR 15 MG PO SCH ×3 (08:29→19:49)
[2020-05-03] MEDS: ACIDOPHILUS PO SCH (08:30)
[2020-05-03] MEDS: PECTIN CITRUS PO SCH (08:30)
[2020-05-03] MEDS: SYMBICORT 160/4.5MCG INH SCH ×2 (08:32→19:48)
[2020-05-03] MEDS: Non-Formulary Medication 1 Each (Pantoprazole Sodium [Protonix] 40 MG) PO SCH (08:33)
[2020-05-03] MEDS: Non-Formulary Medication 1 Each (Roflumilast [Daliresp] 500 MCG) PO SCH (08:34)
[2020-05-03] MEDS: PROPRANOLOL 60 MG PO SCH (08:34)
[2020-05-03] MEDS: DULOXETINE 60 MG PO SCH (08:38)
[2020-05-03] MEDS: TRAZODONE 50 MG PO SCH (19:48)
[2020-05-03] MEDS: ESCITALOPRAM 10 MG PO SCH (19:49)
[2020-05-04] MEDS: DULOXETINE 60 MG PO SCH (08:17)
[2020-05-04] MEDS: OLMESARTAN 20 MG PO SCH (08:18)
[2020-05-04] MEDS: IBUPROFEN 800 MG PO PRN (08:19)
[2020-05-04] MEDS: CYCLOBENZAPRINE 10 MG PO PRN ×2 (08:20→19:59)
[2020-05-04] MEDS: LEVOTHYROXINE 75 MCG PO SCH (08:21)
[2020-05-04] MEDS: Non-Formulary Medication 1 Each (Roflumilast [Daliresp] 500 MCG) PO SCH (08:22)
[2020-05-04] MEDS: ACIDOPHILUS PO SCH (08:22)
[2020-05-04] MEDS: PECTIN CITRUS PO SCH (08:22)
[2020-05-04] MEDS: SYMBICORT 160/4.5MCG INH SCH (08:23)
[2020-05-04] MEDS: PROPRANOLOL 60 MG PO SCH (08:25)
[2020-05-04] MEDS: BUSPAR 15 MG PO SCH ×3 (08:25→19:57)
[2020-05-04] MEDS: Non-Formulary Medication 1 Each (Pantoprazole Sodium [Protonix] 40 MG) PO SCH (08:26)
[2020-05-04] MEDS: ESCITALOPRAM 10 MG PO SCH (19:58)
[2020-05-05] MEDS: IBUPROFEN 800 MG PO PRN (03:05)
[2020-05-05] MEDS: OLMESARTAN 20 MG PO SCH (08:11)
[2020-05-05] MEDS: BUSPAR 15 MG PO SCH ×3 (08:11→19:34)
[2020-05-05] MEDS: LEVOTHYROXINE 75 MCG PO SCH (08:13)
[2020-05-05] MEDS: SYMBICORT 160/4.5MCG INH SCH ×3 (08:15→19:33)
[2020-05-05] MEDS: TRAZODONE 50 MG PO SCH ×2 (08:16→19:32)
[2020-05-05] MEDS: ACIDOPHILUS PO SCH (08:17)
[2020-05-05] MEDS: PECTIN CITRUS PO SCH (08:17)
[2020-05-05] MEDS: Non-Formulary Medication 1 Each (Roflumilast [Daliresp] 500 MCG) PO SCH (08:19)
[2020-05-05] MEDS: DULOXETINE 60 MG PO SCH (08:19)
[2020-05-05] MEDS: PROPRANOLOL 60 MG PO SCH (08:19)
[2020-05-05] MEDS: Non-Formulary Medication 1 Each (Pantoprazole Sodium [Protonix] 40 MG) PO SCH (08:20)
[2020-05-05] MEDS ORDERED: Docusate Sodium 100 MG Cap PO PRN (15:00)
[2020-05-05] MEDS ORDERED: Docusate Sodium 100 MG Cap ONE (15:20)
[2020-05-05] MEDS: ESCITALOPRAM 10 MG PO SCH (19:35)
[2020-05-05] MEDS: CYCLOBENZAPRINE 10 MG PO PRN (20:10)
[2020-05-06] MEDS: LEVOTHYROXINE 75 MCG PO SCH (06:27)
[2020-05-06] MEDS: DULOXETINE 60 MG PO SCH (08:35)
[2020-05-06] MEDS: BUSPAR 15 MG PO SCH ×3 (08:35→20:46)
[2020-05-06] MEDS: SYMBICORT 160/4.5MCG INH SCH ×2 (08:35→20:43)
[2020-05-06] MEDS: ACIDOPHILUS PO SCH (08:35)
[2020-05-06] MEDS: OLMESARTAN 20 MG PO SCH (08:35)
[2020-05-06] MEDS: PECTIN CITRUS PO SCH (08:35)
[2020-05-06] MEDS: Non-Formulary Medication 1 Each (Pantoprazole Sodium [Protonix] 40 MG) PO SCH (08:36)
[2020-05-06] MEDS: Non-Formulary Medication 1 Each (Roflumilast [Daliresp] 500 MCG) PO SCH (08:36)
[2020-05-06] MEDS: PROPRANOLOL 60 MG PO SCH (08:36)
[2020-05-06 12:34] VITALS: PULSE 65
[2020-05-06] MEDS: IBUPROFEN 800 MG PO PRN (17:46)
[2020-05-06] MEDS: TRAZODONE 50 MG PO SCH (20:42)
[2020-05-06] MEDS: CYCLOBENZAPRINE 10 MG PO PRN (20:42)
[2020-05-06] MEDS: ESCITALOPRAM 10 MG PO SCH (20:48)
[2020-05-07] MEDS: OLMESARTAN 20 MG PO SCH (08:03)
[2020-05-07] MEDS: BUSPAR 15 MG PO SCH ×2 (08:05→12:59)
[2020-05-07] MEDS: PROPRANOLOL 60 MG PO SCH (08:05)
[2020-05-07] MEDS: Non-Formulary Medication 1 Each (Pantoprazole Sodium [Protonix] 40 MG) PO SCH (08:06)
[2020-05-07] MEDS: ACIDOPHILUS PO SCH (08:08)
[2020-05-07] MEDS: PECTIN CITRUS PO SCH (08:08)
[2020-05-07] MEDS: SYMBICORT 160/4.5MCG INH SCH (08:08)
[2020-05-07] MEDS: Non-Formulary Medication 1 Each (Roflumilast [Daliresp] 500 MCG) PO SCH (08:08)
[2020-05-07] MEDS: LEVOTHYROXINE 75 MCG PO SCH (08:09)
[2020-05-07] MEDS: DULOXETINE 60 MG PO SCH (08:10)
[2020-05-07] MEDS: CYCLOBENZAPRINE 10 MG PO PRN (08:10)
[2020-05-07 08:35] VITALS: BP 139/69
== END 2020-05-07 17:00 | disposition home or self-care (01) | DRG 951 ==
LOC: LB.MS 12:56
PROVIDERS: ADMIT Registered Nurse; ATTEND Registered Nurse
DX: Z75.5 Holiday relief care (principal); Z79.890 Hormone replacement therapy; Z79.899 Other long term (current) drug therapy
CPT/HCPCS: A9270-GY

== ENCOUNTER 2020-06-05 14:27 | Emergency (ER) | payer MEDICARE, MEDICAID ==
[2020-06-05] MEDS: HYDROmorphone 2 MG/ML SDV IVPUSH ONE ×2 (14:50→15:27)
[2020-06-05] MEDS ORDERED: HYDROmorphone 2 MG/ML SDV ONE (15:05)
[2020-06-05] MEDS ORDERED: Albuterol 0.083% 2.5 MG/3 ML Neb Soln NEB ONE (16:16)
[2020-06-05] MEDS ORDERED: Albuterol 0.083% 2.5 MG/3 ML Neb Soln ONE (16:26)
[2020-06-05 16:45] VITALS: BP 131/75; PULSE 70
--- NOTE | 2020-06-05 17:42 | CR ---
DATE OF SERVICE: 06/05/2020 CLINICAL DATA: TRAUMA. RIGHT HIP: There is a mildly displaced subcapital femoral neck fracture on the right. No other acute abnormalities. IMPRESSION: Right hip fracture. [id number] [facility] [place]
--- NOTE | 2020-06-05 18:55 | EDM.PDOC ---
ED HPI GENERAL MEDICAL PROBLEM - General Chief Complaint: General Stated Complaint: FALL RIGHT HIP PAIN Time Seen by Provider: 06/05/20 14:30 Source of Information: Reports: Patient - History of Present Illness INITIAL COMMENTS - FREE TEXT/NARRATIVE: 74 year old female known patient fell at home & landed on on right hip - she is c/o pain in right hip ,the pain is sharp ,10/10 ,non radiating located on right hip /The pain is worse on movement & not relieved by any thing - denies fever,N/V ,chest pain ,cough ,shortness of breath ,abd pain , Onset: Today, Sudden Duration: Hour(s): (4) Quality: Reports: Sharp Severity: Moderate Right Lower Hip Pain Score (Numeric/FACES): 10 - Related Data Allergies Allergy/AdvReac Type Severity Reaction Status Date / Time milnacipran [From Savella] Allergy Cannot Verified 06/05/20 14:31 Remember nicotine [From Nicoderm CQ] Allergy Itching Verified 06/05/20 14:31 Penicillins Allergy Anaphylactic Verified 06/05/20 14:31 Shock tetracycline Allergy Cannot Verified 06/05/20 14:31 Remember diflunisal [From Dolobid] AdvReac Nausea Verified 06/05/20 14:31 gabapentin AdvReac Depression Verified 06/05/20 14:31 ketoprofen AdvReac Nausea Verified 06/05/20 14:31 lisinopril AdvReac Cannot Verified 06/05/20 14:31 Remember pregabalin [From Lyrica] AdvReac Cannot Verified 06/05/20 14:31 Remember Sulfa (Sulfonamide AdvReac Cannot Verified 06/05/20 14:31 Antibiotics) Remember Home Meds: Home Meds RX: Roflumilast [Daliresp] 500 mcg PO DAILY 12/26/15 [History] RX: oxyCODONE HCl [Oxycodone HCl] 1 tab PO DAILY 07/22/17 [History] RX: Escitalopram Oxalate [Lexapro] 10 mg PO BEDTIME 09/23/17 [History] RX: Propranolol [Inderal LA] 60 mg PO DAILY 09/23/17 [History] RX: traZODone 100 mg PO BEDTIME 09/23/17 [History] Cyanocobalamin (Vitamin B12) [Vitamin B12] 1,000 mcg IM ASDIRECTED 12/20/18 [History] busPIRone HCl [Buspirone HCl] 15 mg PO TID@08,,12/20/18 [History] Pantoprazole Sodium [Protonix] 40 mg PO DAILY 03/03/19 [History] DULoxetine HCl [Cymbalta] 120 mg PO DAILY 03/30/20 [History] L. 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: Musculoskeletal History: Reports: Fibromyalgia, Osteoarthritis Psychiatric History: Reports: Anxiety, Depression, Emotional Problems, Panic Attack, Psych Hospitalization(s), PTSD, Suicide Attempt, Suicidal Ideation Endocrine/Metabolic History: Reports: Hypothyroidism Hematologic History: Reports: B12 Deficiency Oncologic (Cancer) History: Reports: Lung, Ovarian Dermatologic History: Reports: Eczema - Infectious Disease History Infectious Disease History: Reports: Chicken Pox, Measles, Mumps - Past Surgical History HEENT Surgical History: Reports: None Cardiovascular Surgical History: Reports: None Respiratory Surgical History: Reports: Lung Resection, Other (See Below) Other Respiratory Surgeries/Procedures: Left Upper Lobectomy GI Surgical History: Reports: Cholecystectomy Female Surgical History: Reports: Other (See Below) Other Female Surgeries/Procedures: Ovarian Ca Endocrine Surgical History: Reports: None Musculoskeletal Surgical History: Reports: None Oncologic Surgical History: Reports: Lobectomy Dermatological Surgical History: Reports: None Social & Family History - Family History Family Medical History: No Pertinent Family History Respiratory: Reports: COPD - Caffeine Use Caffeine Use: Reports: Coffee ED ROS GENERAL - Review of Systems Review Of Systems: See Below Constitutional: Reports: No Symptoms Respiratory: Reports: No Symptoms, Shortness of Breath, Wheezing, Hemoptysis Cardiovascular: Reports: No Symptoms, Dyspnea on Exertion GI/Abdominal: Reports: No Symptoms, Anorexia, Constipation Musculoskeletal: Reports: No Symptoms, Other (swelling +tenderness present on right ) ED EXAM, GENERAL - Physical Exam Exam: See Below Exam Limited By: No Limitations General Appearance: Alert, WD/WN, No Apparent Distress Head: Atraumatic, Other Respiratory/Chest: No Respiratory Distress, Lungs Clear, Normal Breath Sounds, No Accessory Muscle Use, Chest Non-Tender Cardiovascular: No JVD, No Murmur GI/Abdominal: Normal Bowel Sounds, Soft, Non-Tender, No Organomegaly, No Distention, No Abnormal Bruit Extremities: Non-Tender, No Pedal Edema, Normal Capillary Refill, Other (Pain on movement ,swlling present ,tenderness present on right hip area ). No: Normal Range of Motion Neurological: Alert, Oriented, CN II-XII Intact Course - Vital Signs Text/Narrative:: 74 year old female came with h/o fall - tenderness present on right hip I/V line established injection Dilaudid 1 mg given Sat dropped O started by nasal canula I spoke with orthopedic surgeon & dr Argueta to [facility] to [facility] for ORIF Last Recorded V/S: Last Vital Signs Temp 97 F 06/05/20 14:31 Pulse 70 06/05/20 16:15 Resp 16 06/05/20 16:30 BP 131/75 06/05/20 16:15 Pulse Ox 97 06/05/20 16:30 - Orders/Labs/Meds Orders: Active Orders 24 hr Category Date Time Status Insert Gilbert Catheter [Insert Urinary Catheter] [OM.PC] Care 06/05/20 15:30 Ordered Q24H Labs: Laboratory Tests 06/05/20 06/05/20 06/05/20 Range/Units 14:56 15:27 15:30 WBC 5.9 (4.0-11.0) K/uL RBC 3.54 L (3.80-5.80) M/uL Hgb 10.4 L (11.5-16.5) g/dL Hct 32.8 L (37.0-47.0) % MCV 93 (76-96) fL MCH 29.4 (27.0-32.0) pg MCHC 31.7 (31.0-35.0) g/dL RDW 13.5 (11.0-16.0) % Plt Count 210 (150-500) K/uL MPV 9.0 (6.0-10.0) fL Neut % (Auto) 57.6 (45.0-70.0) % Lymph % (Auto) 29.2 (20.0-40.0) % [place] % (Auto) 10.0 (3.0-10.0) % Eos % (Auto) 2.9 (1.0-5.0) % Baso % (Auto) 0.3 (0.0-0.5) % Neut # (Auto) 3.40 (2.00-7.50) K/uL Lymph # (Auto) 1.72 (1.50-4.00) K/uL [place] # (Auto) 0.59 (0.20-0.80) K/uL Eos # (Auto) 0.17 (0.04-0.40) K/uL Baso # (Auto) 0.02 (0.02-0.10) K/uL Sodium 140 (136-145) mmol/L Potassium 4.3 (3.5-5.1) mmol/L Chloride 103 (98-107) mmol/L Carbon Dioxide 29.1 (21.0-32.0) mmol/L Anion Gap 12.2 (5.0-15.0) mmol/L BUN 16 (8-26) mg/dL Creatinine 0.97 D (0.55-1.02) mg/dL Est Cr Clr Drug Dosing 36.55 mL/min Estimated GFR (MDRD) 56 L (>60) MLS/MIN BUN/Creatinine Ratio 16.5 (6-25) Glucose 86 (74-100) mg/dL Calcium 8.2 L (8.5-10.1) mg/dL Total Bilirubin 0.3 (0.0-1.0) mg/dL AST 26 (15-37) U/L ALT 16 (12-78) U/L Alkaline Phosphatase 60 (46-116) U/L Total Protein 6.4 (6.4-8.2) g/dL Albumin 3.3 L (3.4-5.0) g/dL Globulin 3.1 (2.2-4.2) g/dL Albumin/Globulin Ratio 1.1 (0.8-2.0) Urine Color Yellow Urine Appearance Clear (CLEAR) Urine pH 7.0 (5.0-8.0) Ur Specific [place] 1.020 (1.003-1.030) Urine Protein Negative (NEGATIVE) mg/dL Urine Glucose (UA) Negative (NEGATIVE) mg/dL Urine Ketones Negative (NEGATIVE) mg/dL Urine Occult Blood Negative (NEGATIVE) Urine Nitrite Negative (NEGATIVE) Urine Bilirubin Negative (NEGATIVE) Urine Urobilinogen 0.2 (0.2-1.0) E.U./dL Ur Leukocyte Esterase Negative (NEGATIVE) SARS-CoV-2 RNA (GIULIA) (NEGATIVE) 06/05/20 Range/Units 15:45 WBC (4.0-11.0) K/uL RBC (3.80-5.80) M/uL Hgb (11.5-16.5) g/dL Hct (37.0-47.0) % MCV (76-96) fL MCH (27.0-32.0) pg MCHC (31.0-35.0) g/dL RDW (11.0-16.0) % Plt Count (150-500) K/uL MPV (6.0-10.0) fL Neut % (Auto) (45.0-70.0) % Lymph % (Auto) (20.0-40.0) % [place] % (Auto) (3.0-10.0) % Eos % (Auto) (1.0-5.0) % Baso % (Auto) (0.0-0.5) % Neut # (Auto) (2.00-7.50) K/uL Lymph # (Auto) (1.50-4.00) K/uL [place] # (Auto) (0.20-0.80) K/uL Eos # (Auto) (0.04-0.40) K/uL Baso # (Auto) (0.02-0.10) K/uL Sodium (136-145) mmol/L Potassium (3.5-5.1) mmol/L Chloride (98-107) mmol/L Carbon Dioxide (21.0-32.0) mmol/L Anion Gap (5.0-15.0) mmol/L BUN (8-26) mg/dL Creatinine (0.55-1.02) mg/dL Est Cr Clr Drug Dosing mL/min Estimated GFR (MDRD) (>60) MLS/MIN BUN/Creatinine Ratio (6-25) Glucose (74-100) mg/dL Calcium (8.5-10.1) mg/dL Total Bilirubin (0.0-1.0) mg/dL AST (15-37) U/L ALT (12-78) U/L Alkaline Phosphatase (46-116) U/L Total Protein (6.4-8.2) g/dL Albumin (3.4-5.0) g/dL Globulin (2.2-4.2) g/dL Albumin/Globulin Ratio (0.8-2.0) Urine Color Urine Appearance (CLEAR) Urine pH (5.0-8.0) Ur Specific [place] (1.003-1.030) Urine Protein (NEGATIVE) mg/dL Urine Glucose (UA) (NEGATIVE) mg/dL Urine Ketones (NEGATIVE) mg/dL Urine Occult Blood (NEGATIVE) Urine Nitrite (NEGATIVE) Urine Bilirubin (NEGATIVE) Urine Urobilinogen (0.2-1.0) E.U./dL Ur Leukocyte Esterase (NEGATIVE) SARS-CoV-2 RNA (GIULIA) Negative (NEGATIVE) Meds: Medications Discontinued Medications Generic Name Dose Route Start Last Admin Trade Name Freq PRN Reason Stop Dose Admin Albuterol 2.5 mg 06/05/20 16:16 06/05/20 16:26 Proventil Neb Soln NEB 06/05/20 16:17 2.5 mg ONETIME ONE Administration Albuterol Confirm 06/05/20 16:26 06/05/20 16:43 Proventil Neb Soln Administered 06/05/20 16:27 Not Given Dose 2.5 mg .ROUTE .STK-MED ONE Hydromorphone HCl 1 mg 06/05/20 14:39 06/05/20 15:27 Dilaudid IVPUSH 06/05/20 14:40 1 mg ONETIME ONE Administration Hydromorphone HCl Confirm 06/05/20 15:05 06/05/20 15:28 Dilaudid Administered 06/05/20 15:06 Not Given Dose 2 mg .ROUTE .STK-MED ONE Departure - Departure Time of Disposition: 15:00 Disposition: DC/Tfer to Acute Hospital 02 Condition: Fair Clinical Impression: Fracture of femoral neck, right - Discharge Information Referrals: PCP,None [Primary Care Provider] - Forms: ED Department Discharge Sepsis Event Note (ED) - Evaluation Sepsis Screening Result: No Definite Risk - Focused Exam Vital Signs: Vital Signs Temp Pulse Resp BP Pulse Ox 06/05/20 16:30 16 97 06/05/20 16:15 70 16 131/75 84 L 06/05/20 14:31 97 F 65 18 161/68 H 97 - Problem List & Annotations (1) Femur fracture, right SNOMED Code(s): 18695013, 46191255927629368 Code(s): S72.91XA - UNSP FRACTURE OF RIGHT FEMUR, INIT FOR CLOS FX Status: Acute Priority: Medium Onset Date: ~06/05/20 - My Orders Last 24 Hours: My Active Orders 06/05/20 15:30 Insert Gilbert Catheter [Insert Urinary Catheter] [OM.PC] Q24H - Assessment/Plan Last 24 Hours: My Active Orders 06/05/20 15:30 Insert Gilbert Catheter [Insert Urinary Catheter] [OM.PC] Q24H
== END 2020-06-05 17:00 ==
LOC: LB.ED 14:27
DX: S72.011A Unspecified intracapsular fracture of right femur, initial encounter for closed fracture (principal); I10 Essential (primary) hypertension; J44.9 Chronic obstructive pulmonary disease, unspecified; K21.9 Gastro-esophageal reflux disease without esophagitis; E03.9 Hypothyroidism, unspecified; Z88.8 Allergy status to other drugs, medicaments and biological substances; Z88.0 Allergy status to penicillin; Z88.1 Allergy status to other antibiotic agents; Z88.6 Allergy status to analgesic agent; Z88.2 Allergy status to sulfonamides; Z79.899 Other long term (current) drug therapy; Z20.822 Contact with and (suspected) exposure to COVID-19; W19.XXXA Unspecified fall, initial encounter; Y92.009 Unspecified place in unspecified non-institutional (private) residence as the place of occurrence of the external cause
CPT/HCPCS: 36415; 51702; 73502-RT; 80053; 81003; 85025; 96374; 96376; 99285; 99285-25; A0425; A0429; J1170; U0002

== ENCOUNTER 2020-06-18 11:42 | Inpatient (IN) | payer MEDICARE, MEDICAID ==
[2020-06-18] MEDS ORDERED: Non-Formulary Medication 1 Each (Diclofenac Sodium [Voltaren 1% Gel] 1 APPLIC) TOP PRN (13:00)
[2020-06-18] MEDS ORDERED: traMADol 50 MG Tab PO PRN (13:00)
[2020-06-18] MEDS ORDERED: Albuterol 8 GM Inhaler INH PRN (13:00)
[2020-06-18] MEDS: Albuterol/Ipratropium 3.0-0.5 MG/3 ML Neb Soln INH SCH ×2 (13:00→23:12)
[2020-06-18] MEDS ORDERED: Non-Formulary Medication 1 Each (Ondansetron Hcl [Zofran] 4 MG) PO PRN (13:00)
[2020-06-18] MEDS: Divalproex Sodium Delayed-Release 125 MG Cap.Sprink PO SCH ×2 (14:00→19:40)
[2020-06-18] MEDS ORDERED: Ondansetron 4 MG Tab.DIS PO PRN (14:10)
[2020-06-18] MEDS: oxyCODONE 5 MG Tab PO PRN ×2 (14:57→19:50)
[2020-06-18] MEDS ORDERED: Tuberculin, PPD 5 Units/0.1 ML 1 ML MDV IDERM ONE (16:33)
--- NOTE | 2020-06-18 17:30 | PCM.HP.2 ---
H&P History of Present Illness - General Date of Service: 06/18/20 Admit Problem/Dx: Admission Diagnosis/Problem Admission Diagnosis/Problem Weakness Source of Information: Patient History Limitations: Reports: No Limitations - History of Present Illness Initial Comments - Free Text/Narative: This is a 74yo F here for rehabilitation and swing bed admission for a recent right hip fracture. She denies any other health concerns. Duration of Symptoms: Reports: Improving Location: Reports: Lower Extremity, Right Quality: Reports: Ache Severity: Moderate Improves with: Reports: Rest Worsens with: Reports: Movement Associated Symptoms: Reports: Weakness Right Hip Pain Score (Numeric/FACES): 5 - Related Data Allergies/Adverse Reactions: Allergies Allergy/AdvReac Type Severity Reaction Status Date / Time adhesive Allergy Rash Verified 06/18/20 12:13 milnacipran [From Savella] Allergy Cannot Verified 06/18/20 12:12 Remember nicotine [From Nicoderm CQ] Allergy Itching Verified 06/18/20 12:12 Penicillins Allergy Anaphylactic Verified 06/18/20 12:12 Shock tetracycline Allergy Cannot Verified 06/18/20 12:12 Remember yellow dye Allergy Cannot Verified 06/18/20 12:15 Remember diflunisal [From Dolobid] AdvReac Nausea Verified 06/18/20 12:12 gabapentin AdvReac Depression Verified 06/18/20 12:12 ketoprofen AdvReac Nausea Verified 06/18/20 12:12 lisinopril AdvReac Cannot Verified 06/18/20 12:12 Remember pregabalin [From Lyrica] AdvReac Cannot Verified 06/18/20 12:12 Remember Sulfa (Sulfonamide AdvReac Cannot Verified 06/18/20 12:12 Antibiotics) Remember Home Medications: Home Meds Roflumilast [Daliresp] 500 mcg PO DAILY 12/26/15 [History] Escitalopram Oxalate [Lexapro] 10 mg PO BEDTIME 09/23/17 [History] Propranolol [Inderal LA] 60 mg PO DAILY 09/23/17 [History] traZODone 100 mg PO BEDTIME 09/23/17 [History] Cyanocobalamin (Vitamin B12) [Vitamin B12] 1,000 mcg IM ASDIRECTED 12/20/18 [History] busPIRone HCl [Buspirone HCl] 15 mg PO TID@08,,12/20/18 [History] Pantoprazole Sodium [Protonix] 40 mg PO DAILY 03/03/19 [History] DULoxetine HCl [Cymbalta] 120 mg PO DAILY 03/30/20 [History] Divalproex Sodium 125 mg PO TID 03/30/20 [History] L. Acidophilus/Pectin, [place] [Acidophilus Capsule] 1 cap PO DAILY 03/30/20 [History] Levothyroxine 75 mcg PO DAILY 03/30/20 [History] Olmesartan Medoxomil 30 mg PO DAILY 03/30/20 [History] Cyclobenzaprine [Flexeril] 5 mg PO TID PRN 04/29/20 [History] Acetaminophen [Tylenol Extra Strength] 500 mg PO Q6H 06/18/20 [History] Albuterol Sulfate [Proair Hfa] 1 puff INH Q4H PRN 06/18/20 [History] Albuterol/Ipratropium [DuoNeb 3.0-0.5 MG/3 ML] 1 vial INH Q6H 06/18/20 [History] Aspirin [Halfprin] 81 mg PO DAILY 06/18/20 [History] Budesonide/Formoterol [Symbicort 160-4.5 MCG] 1 puff INH BID 06/18/20 [History] Diclofenac Sodium [Voltaren 1% Gel] 1 applic TOP DAILY PRN 06/18/20 [History] Docusate Sodium/Sennosides [Senna Plus] 2 tab PO BID PRN 06/18/20 [History] Enoxaparin Sodium [Lovenox] 40 mg SQ DAILY 06/18/20 [History] Ergocalciferol (Vitamin D2) [Vitamin D2] 50,000 unit PO DAILY 06/18/20 [History] Ferrous Gluconate 324 mg PO DAILY 06/18/20 [History] Magnesium Oxide 400 mg PO DAILY 06/18/20 [History] Tiotropium [Spiriva HandiHaler] 1 puff INH DAILY 06/18/20 [History] ondansetron HCL [Zofran] 4 mg PO Q6H PRN 06/18/20 [History] oxyCODONE 0.5 tab PO Q6H 06/18/20 [History] traMADol [Ultram] 50 mg PO Q6H PRN 06/18/20 [History] Past Medical History HEENT History: Reports: Hard of Hearing, Impaired Vision, Other (See Below) Other HEENT History: dentures Cardiovascular History: Reports: Hypertension Respiratory History: Reports: COPD Gastrointestinal History: Reports: Cholelithiasis, Chronic Diarrhea, GERD Genitourinary History: Reports: UTI, Recurrent [employer] History: Reports: Musculoskeletal History: Reports: Fibromyalgia, Osteoarthritis Psychiatric History: Reports: Anxiety, Depression, Emotional Problems, Panic Attack, Psych Hospitalization(s), PTSD, Suicide Attempt, Suicidal Ideation Endocrine/Metabolic History: Reports: Hypothyroidism Hematologic History: Reports: B12 Deficiency Oncologic (Cancer) History: Reports: Lung, Ovarian Dermatologic History: Reports: Eczema - Infectious Disease History Infectious Disease History: Reports: Chicken Pox, Measles, Mumps - Past Surgical History HEENT Surgical History: Reports: None Cardiovascular Surgical History: Reports: None Respiratory Surgical History: Reports: Lung Resection, Other (See Below) Other Respiratory Surgeries/Procedures: Left Upper Lobectomy GI Surgical History: Reports: Cholecystectomy Female Surgical History: Reports: Other (See Below) Other Female Surgeries/Procedures: Ovarian Ca Endocrine Surgical History: Reports: None Musculoskeletal Surgical History: Reports: None Oncologic Surgical History: Reports: Lobectomy Dermatological Surgical History: Reports: None Social & Family History - Family History Family Medical History: No Pertinent Family History Respiratory: Reports: COPD - Tobacco Use Tobacco Use Status *Q: Former Tobacco User Used Tobacco, but Quit: Yes Month/Year Tobacco Last Used: 2018 Second Hand Smoke Exposure: No - Caffeine Use Caffeine Use: Reports: Coffee - Recreational Drug Use Recreational Drug Use: No H&P Review of Systems - Review of Systems: Review Of Systems: Comprehensive ROS is negative, except as noted in HPI. Exam - Exam Exam: See Below - Vital Signs Vital Signs: Last Vital Signs Temp 36.2 C 06/18/20 15:00 Pulse 61 06/18/20 15:00 Resp 20 06/18/20 15:00 BP 112/48 L 06/18/20 15:00 Pulse Ox 94 L 06/18/20 15:00 - Exam General: Alert, Oriented, Cooperative HEENT: PERRLA, Conjunctiva Clear, EACs Clear Neck: Supple, Trachea Midline Lungs: Clear to Auscultation, Normal Respiratory Effort Cardiovascular: Regular Rate, Regular Rhythm GI/Abdominal Exam: Normal Bowel Sounds Extremities: Normal Inspection Skin: Warm, Dry, Intact, Incision Neuro Extensive - Mental Status: Alert, Oriented x3, Normal Mood/Affect Sepsis Event Note - Evaluation Sepsis Screening Result: No Definite Risk - Focused Exam Vital Signs: Vital Signs Temp Pulse Resp BP Pulse Ox 06/18/20 15:00 36.2 C 61 20 112/48 L 94 L - Problem List (1) Fracture of femoral neck, right SNOMED Code(s): 3659668, [id number] ICD Code: S72.001A - FRACTURE OF UNSP PART OF NECK OF RIGHT FEMUR, INIT Status: Acute Current Visit: No Qualifiers: Encounter type: sequela (2) Muscle weakness SNOMED Code(s): 22338169 ICD Code: M62.81 - MUSCLE WEAKNESS (GENERALIZED) Status: Chronic Priority: Medium Current Visit: Yes Onset Date: 07/08/15 (3) Post-op pain SNOMED Code(s): 653531938 ICD Code: G89.18 - OTHER ACUTE POSTPROCEDURAL PAIN Status: Acute Priority: Medium Current Visit: Yes Problem List Initiated/Reviewed/Updated: Yes Orders Last 24hrs: Active Orders 24 hr Category Date Time Status Admission Status [Patient Status] [ADT] Routine ADT 06/18/20 14:40 Active RT Aerosol Therapy [RC] ASDIRECTED Care 06/18/20 13:10 Active OT Evaluation and Treatment [CONS] Routine Cons 06/18/20 12:59 Active PT Evaluation and Treatment [CONS] Routine Cons 06/18/20 12:59 Active Regular Diet [DIET] Diet 06/18/20 Dinner Ordered CORONAVIRUS COVID-19 RAPID [MOLEC] Stat Lab 06/18/20 17:27 Ordered CULTURE MRSA SURVEY [RM] Routine Lab 06/18/20 15:40 Ordered Acetaminophen [Tylenol Extra Strength] Med 06/18/20 16:00 Active 1,000 mg PO QID Acidophilus/Lactobac Spor [Acidolphilus Extra Strength] Med 06/19/20 08:00 Active 1 tab PO DAILY Albuterol [Ventolin HFA] Med 06/18/20 13:00 Active 8 gm INH Q4H PRN Albuterol/Ipratropium [DuoNeb 3.0-0.5 MG/3 ML] Med 06/18/20 13:00 Active 3 ml INH Q6H Aspirin [Halfprin] Med 06/19/20 08:00 Active 81 mg PO DAILY Cyanocobalamin (Vitamin B12) [Vitamin B12] Med 07/16/20 13:00 Active 1,000 mcg IM ASDIRECTED Cyclobenzaprine [Flexeril] Med 06/18/20 13:00 Active 5 mg PO TID PRN DULoxetine [Cymbalta] Med 06/19/20 08:00 Active 120 mg PO DAILY Divalproex Sodium [Depakote Sprinkle] Med 06/18/20 14:00 Active 125 mg PO TID Docusate Sodium/Sennosides [Senna Plus] Med 06/18/20 13:00 Active 2 tab PO BID PRN Enoxaparin [Lovenox] Med 06/19/20 08:00 Active 40 mg SUBCUT DAILY Ergocalciferol (Vitamin D2) [Vitamin D2] Med 06/19/20 08:00 Active 1.25 mg PO DAILY Escitalopram [Lexapro] Med 06/19/20 08:00 Active 10 mg PO DAILY Ferrous Gluconate Med 06/19/20 08:00 Active 324 mg PO DAILY Levothyroxine Med 06/19/20 08:00 Active 75 mcg PO DAILY Losartan [Cozaar] Med 06/19/20 08:00 Active 50 mg PO DAILY Magnesium Oxide Med 06/19/20 08:00 Active 400 mg PO DAILY Mometasone/Formoterol [Dulera 200-5 MCG] Med 06/18/20 20:00 Active 2 puff IH BID Ondansetron [Zofran ODT] Med 06/18/20 14:10 Active 4 mg PO QID PRN Pantoprazole [ProTONIX] Med 06/19/20 08:00 Active 40 mg PO DAILY Propranolol [Inderal LA] Med 06/19/20 08:00 Active 60 mg PO DAILY Roflumilast [Daliresp] Med 06/19/20 08:00 Active 500 mcg PO DAILY Tiotropium [Spiriva HandiHaler] Med 06/19/20 08:00 Active 18 mcg INH DAILY Trolamine Salicylate/Aloe Vera [Aspercreme 10%] Med 06/19/20 08:00 Active 1 gm TOP DAILY busPIRone [Buspar] Med 06/18/20 20:00 Active 15 mg PO TID@ oxyCODONE Med 06/18/20 13:00 Active 2.5 mg PO Q6H PRN traMADol [Ultram] Med 06/18/20 13:00 Active 50 mg PO Q6H PRN traZODone Med 06/18/20 20:00 Active 100 mg PO BEDTIME Resuscitation Status Routine Resus Stat 06/18/20 12:59 Ordered Medication Orders Acetaminophen (Tylenol Extra Strength) 1,000 mg PO QID [facility] Albuterol (Ventolin Hfa) 8 gm INH Q4H PRN PRN Reason: Wheezing Albuterol/Ipratropium (Duoneb 3.0-0.5 Mg/3 Ml) 3 ml INH Q6H [facility] Aspirin (Halfprin) 81 mg PO DAILY [facility] Buspirone HCl (Buspar) 15 mg PO TID@ [facility] Cyanocobalamin (Vitamin B12) 1,000 mcg IM ASDIRECTED [facility] Cyclobenzaprine HCl (Flexeril) 5 mg PO TID PRN PRN Reason: Muscle Spasm Divalproex Sodium (Depakote Sprinkle) 125 mg PO TID [facility] Duloxetine HCl (Cymbalta) 120 mg PO DAILY [facility] Enoxaparin Sodium (Lovenox) 40 mg SUBCUT DAILY [facility] Stop: 07/06/26 09:00 Ergocalciferol (Vitamin D2) 1.25 mg PO DAILY [facility] Escitalopram Oxalate (Lexapro) 10 mg PO DAILY [facility] Ferrous Gluconate (Ferrous Gluconate) 324 mg PO DAILY [facility] Lactobacillus Acidophilus (Acidolphilus Extra Strength) 1 tab PO DAILY [facility] Levothyroxine Sodium (Levothyroxine) 75 mcg PO DAILY [facility] Losartan Potassium (Cozaar) 50 mg PO DAILY [facility] Magnesium Oxide (Magnesium Oxide) 400 mg PO DAILY [facility] Mometasone Furoate/Formoterol Fumar (Dulera 200-5 Mcg) 2 puff IH BID [facility] Ondansetron HCl (Zofran Odt) 4 mg PO QID PRN PRN Reason: NAUSEA Oxycodone HCl (Oxycodone) 2.5 mg PO Q6H PRN PRN Reason: SEVERE PAIN (7-10) Stop: 06/22/20 23:59 Last Admin: 06/18/20 14:57 Dose: 2.5 mg Documented by: DONAVAN Pantoprazole Sodium (Protonix) 40 mg PO DAILY [facility] Propranolol HCl (Inderal La) 60 mg PO DAILY [facility] Roflumilast (Daliresp) 500 mcg PO DAILY [facility] Senna/Docusate Sodium (Senna Plus) 2 tab PO BID PRN PRN Reason: Constipation Tiotropium [place] (Spiriva Handihaler) 18 mcg INH DAILY [facility] Tramadol HCl (Ultram) 50 mg PO Q6H PRN PRN Reason: Moderate Pain (4-6) Stop: 06/22/20 23:59 Trazodone HCl (Trazodone) 100 mg PO BEDTIME [facility] Trolamine Salicylate (Aspercreme 10%) 1 gm TOP DAILY [facility] Assessment/Plan Comment:: Patient admitted for sub acute rehabilitation and management. Pain control as directed.
[2020-06-18] MEDS: Acetaminophen 500 MG Tab PO SCH ×2 (18:19→19:40)
[2020-06-18] MEDS: busPIRone 15 MG Tab PO SCH (19:40)
[2020-06-18] MEDS ORDERED: BUDESONIDE INH SCH (20:00)
[2020-06-18] MEDS ORDERED: ESCITALOPRAM OXALATE 10 MG PO SCH (20:00)
[2020-06-18] MEDS ORDERED: FORMOTEROL INH SCH (20:00)
[2020-06-18] MEDS ORDERED: traZODone 100 MG Tab PO SCH (20:00)
[2020-06-18] MEDS: Formoterol/Mometasone 200-5 MCG 8.8 GM Inhaler IH SCH (23:13)
[2020-06-19] MEDS: oxyCODONE 5 MG Tab PO PRN ×3 (03:50→18:30)
[2020-06-19] MEDS: Albuterol/Ipratropium 3.0-0.5 MG/3 ML Neb Soln INH SCH ×4 (04:56→22:23)
[2020-06-19] MEDS ORDERED: busPIRone 10 MG Tab ONE ×2 (07:20→14:02)
[2020-06-19] MEDS: Aspirin 81 MG Tab.EC PO SCH (07:48)
[2020-06-19] MEDS: DULoxetine 60 MG Cap PO SCH (07:48)
[2020-06-19] MEDS: Ergocalciferol (Vitamin D2) 1.25 MG Cap PO SCH (07:48)
[2020-06-19] MEDS: Levothyroxine 75 MCG Tab PO SCH (07:48)
[2020-06-19] MEDS: Magnesium Oxide 400 MG Tab PO SCH (07:49)
[2020-06-19] MEDS: Losartan 50 MG Tab PO SCH (07:49)
[2020-06-19] MEDS: Lactobacillus Acidophilus/Lactobacillus Sporogenes (Probiotic) Tab PO SCH (07:49)
[2020-06-19] MEDS: Pantoprazole 40 MG Tab.CR PO SCH (07:52)
[2020-06-19] MEDS: Propranolol 60 MG Cap.ER PO SCH (07:52)
[2020-06-19] MEDS: Divalproex Sodium Delayed-Release 125 MG Cap.Sprink PO SCH ×3 (07:52→18:15)
[2020-06-19] MEDS: Ferrous Gluconate 324 MG Tab PO SCH (07:52)
[2020-06-19] MEDS: Acetaminophen 500 MG Tab PO SCH ×4 (07:52→19:10)
[2020-06-19] MEDS: Formoterol/Mometasone 200-5 MCG 8.8 GM Inhaler IH SCH (07:53)
[2020-06-19] MEDS: busPIRone 15 MG Tab PO SCH ×2 (07:53→13:15)
[2020-06-19] MEDS: Escitalopram 20 MG Tab PO SCH (07:53)
[2020-06-19] MEDS: Roflumilast 500 MCG Tab PO SCH (07:53)
[2020-06-19] MEDS: Tiotropium Inhaler 18 MCG Inhalation Powder Cap Kit of 5 INH SCH (07:55)
[2020-06-19] MEDS: Enoxaparin 40 MG/0.4 ML Syringe SUBCUT SCH (07:56)
[2020-06-19] MEDS ORDERED: OLMESARTAN MEDOXOMIL PO SCH (08:00)
[2020-06-19] MEDS ORDERED: [UNRECOGNIZED DRUG - OTHER] PO SCH (08:00)
[2020-06-19] MEDS ORDERED: Trolamine Salicylate/Aloe Vera 10% Crm 85 GM Tube TOP SCH (08:00)
[2020-06-19] MEDS ORDERED: Formoterol/Mometasone 200-5 MCG 8.8 GM Inhaler IH ONE (17:45)
[2020-06-19] MEDS: busPIRone 10 MG Tab PO SCH (18:13)
[2020-06-19] MEDS: traZODone 100 MG Tab PO SCH (18:13)
[2020-06-19] MEDS ORDERED: busPIRone 10 MG Tab PO SCH (20:00)
[2020-06-20] MEDS: Acetaminophen 500 MG Tab PO SCH ×4 (00:16→17:40)
[2020-06-20] MEDS: Albuterol/Ipratropium 3.0-0.5 MG/3 ML Neb Soln INH SCH ×5 (02:25→19:31)
[2020-06-20] MEDS: oxyCODONE 5 MG Tab PO PRN ×3 (05:39→19:32)
[2020-06-20] MEDS: Divalproex Sodium Delayed-Release 125 MG Cap.Sprink PO SCH ×3 (06:06→19:31)
[2020-06-20] MEDS: Levothyroxine 75 MCG Tab PO SCH ×2 (06:08→08:59)
[2020-06-20] MEDS: Pantoprazole 40 MG Tab.CR PO SCH ×2 (06:09→08:58)
[2020-06-20] MEDS: Tiotropium Inhaler 18 MCG Inhalation Powder Cap Kit of 5 INH SCH (08:44)
[2020-06-20] MEDS ORDERED: Formoterol/Mometasone 200-5 MCG 8.8 GM Inhaler ONE (08:45)
[2020-06-20] MEDS: Formoterol/Mometasone 200-5 MCG 8.8 GM Inhaler IH SCH ×2 (08:45→17:41)
[2020-06-20] MEDS: Escitalopram 20 MG Tab PO SCH (08:46)
[2020-06-20] MEDS: Propranolol 60 MG Cap.ER PO SCH (08:47)
[2020-06-20] MEDS: Aspirin 81 MG Tab.EC PO SCH (08:47)
[2020-06-20] MEDS: Losartan 50 MG Tab PO SCH (08:47)
[2020-06-20] MEDS: Ergocalciferol (Vitamin D2) 1.25 MG Cap PO SCH (08:48)
[2020-06-20] MEDS: Magnesium Oxide 400 MG Tab PO SCH (08:48)
[2020-06-20] MEDS: busPIRone 10 MG Tab PO SCH ×3 (08:48→17:40)
[2020-06-20] MEDS: Ferrous Gluconate 324 MG Tab PO SCH (08:49)
[2020-06-20] MEDS: Roflumilast 500 MCG Tab PO SCH (08:49)
[2020-06-20] MEDS: DULoxetine 60 MG Cap PO SCH (08:49)
[2020-06-20] MEDS: Lactobacillus Acidophilus/Lactobacillus Sporogenes (Probiotic) Tab PO SCH (08:49)
[2020-06-20] MEDS: Enoxaparin 40 MG/0.4 ML Syringe SUBCUT SCH (08:50)
[2020-06-20] MEDS: traZODone 100 MG Tab PO SCH (17:40)
[2020-06-20] MEDS: Cyclobenzaprine 10 MG Tab PO PRN (20:51)
[2020-06-20] MEDS: Trolamine Salicylate/Aloe Vera 10% Crm 85 GM Tube TOP PRN (20:56)
[2020-06-21] MEDS: Albuterol/Ipratropium 3.0-0.5 MG/3 ML Neb Soln INH SCH ×5 (00:45→19:21)
[2020-06-21] MEDS: Acetaminophen 500 MG Tab PO SCH ×5 (00:45→23:14)
[2020-06-21] MEDS: oxyCODONE 5 MG Tab PO PRN ×2 (05:14→13:29)
[2020-06-21] MEDS: Divalproex Sodium Delayed-Release 125 MG Cap.Sprink PO SCH ×3 (06:00→19:20)
[2020-06-21] MEDS: Pantoprazole 40 MG Tab.CR PO SCH (06:00)
[2020-06-21] MEDS: Levothyroxine 75 MCG Tab PO SCH (06:00)
[2020-06-21] MEDS ORDERED: Levothyroxine 75 MCG Tab PO SCH (07:00)
[2020-06-21] MEDS: Formoterol/Mometasone 200-5 MCG 8.8 GM Inhaler IH SCH ×2 (08:21→17:09)
[2020-06-21] MEDS: Tiotropium Inhaler 18 MCG Inhalation Powder Cap Kit of 5 INH SCH (08:21)
[2020-06-21] MEDS: Propranolol 60 MG Cap.ER PO SCH (08:22)
[2020-06-21] MEDS: busPIRone 10 MG Tab PO SCH ×3 (08:22→17:10)
[2020-06-21] MEDS: Magnesium Oxide 400 MG Tab PO SCH (08:22)
[2020-06-21] MEDS: Roflumilast 500 MCG Tab PO SCH (08:22)
[2020-06-21] MEDS: Escitalopram 20 MG Tab PO SCH (08:23)
[2020-06-21] MEDS: Ergocalciferol (Vitamin D2) 1.25 MG Cap PO SCH (08:24)
[2020-06-21] MEDS: DULoxetine 60 MG Cap PO SCH (08:25)
[2020-06-21] MEDS: Ferrous Gluconate 324 MG Tab PO SCH (08:25)
[2020-06-21] MEDS: Lactobacillus Acidophilus/Lactobacillus Sporogenes (Probiotic) Tab PO SCH (08:26)
[2020-06-21] MEDS: Aspirin 81 MG Tab.EC PO SCH (08:26)
[2020-06-21] MEDS: Losartan 50 MG Tab PO SCH (08:29)
[2020-06-21] MEDS: Enoxaparin 40 MG/0.4 ML Syringe SUBCUT SCH (08:38)
[2020-06-21] MEDS: traZODone 100 MG Tab PO SCH (17:10)
[2020-06-21] MEDS: Cyclobenzaprine 10 MG Tab PO PRN (19:20)
[2020-06-22] MEDS: oxyCODONE 5 MG Tab PO PRN ×3 (01:35→18:20)
[2020-06-22] MEDS: Albuterol/Ipratropium 3.0-0.5 MG/3 ML Neb Soln INH SCH ×4 (01:37→18:23)
[2020-06-22] MEDS: Pantoprazole 40 MG Tab.CR PO SCH (06:22)
[2020-06-22] MEDS: Divalproex Sodium Delayed-Release 125 MG Cap.Sprink PO SCH ×3 (06:23→18:20)
[2020-06-22] MEDS: Acetaminophen 500 MG Tab PO SCH ×4 (06:23→23:15)
[2020-06-22] MEDS: Levothyroxine 75 MCG Tab PO SCH (06:23)
[2020-06-22] MEDS: Ergocalciferol (Vitamin D2) 1.25 MG Cap PO SCH (07:57)
[2020-06-22] MEDS: Escitalopram 20 MG Tab PO SCH (07:57)
[2020-06-22] MEDS: Formoterol/Mometasone 200-5 MCG 8.8 GM Inhaler IH SCH ×2 (07:57→18:23)
[2020-06-22] MEDS: Tiotropium Inhaler 18 MCG Inhalation Powder Cap Kit of 5 INH SCH (07:57)
[2020-06-22] MEDS: Losartan 50 MG Tab PO SCH (07:58)
[2020-06-22] MEDS: busPIRone 10 MG Tab PO SCH ×3 (07:58→18:20)
[2020-06-22] MEDS: Propranolol 60 MG Cap.ER PO SCH (07:59)
[2020-06-22] MEDS: Enoxaparin 40 MG/0.4 ML Syringe SUBCUT SCH (07:59)
[2020-06-22] MEDS: DULoxetine 60 MG Cap PO SCH (07:59)
[2020-06-22] MEDS: Aspirin 81 MG Tab.EC PO SCH (07:59)
[2020-06-22] MEDS: Roflumilast 500 MCG Tab PO SCH (07:59)
[2020-06-22] MEDS: Magnesium Oxide 400 MG Tab PO SCH (07:59)
[2020-06-22] MEDS: Lactobacillus Acidophilus/Lactobacillus Sporogenes (Probiotic) Tab PO SCH (07:59)
[2020-06-22] MEDS: Ferrous Gluconate 324 MG Tab PO SCH (07:59)
[2020-06-22] MEDS: traZODone 100 MG Tab PO SCH (18:21)
[2020-06-22] MEDS: Polyethylene Glycol 3350 Powder 17 GM Packet PO SCH (19:23)
[2020-06-22] MEDS: Cyclobenzaprine 10 MG Tab PO PRN (23:15)
[2020-06-23] MEDS: Albuterol/Ipratropium 3.0-0.5 MG/3 ML Neb Soln INH SCH ×4 (01:30→18:19)
[2020-06-23] MEDS: oxyCODONE 5 MG Tab PO PRN ×3 (02:03→18:06)
[2020-06-23] MEDS: Divalproex Sodium Delayed-Release 125 MG Cap.Sprink PO SCH ×4 (06:38→18:18)
[2020-06-23] MEDS: Acetaminophen 500 MG Tab PO SCH ×3 (06:38→17:40)
[2020-06-23] MEDS: Pantoprazole 40 MG Tab.CR PO SCH (06:38)
[2020-06-23] MEDS: Levothyroxine 75 MCG Tab PO SCH (06:38)
[2020-06-23] MEDS: Tiotropium Inhaler 18 MCG Inhalation Powder Cap Kit of 5 INH SCH (07:56)
[2020-06-23] MEDS: Formoterol/Mometasone 200-5 MCG 8.8 GM Inhaler IH SCH ×2 (07:56→17:39)
[2020-06-23] MEDS: DULoxetine 60 MG Cap PO SCH (07:57)
[2020-06-23] MEDS: Ergocalciferol (Vitamin D2) 1.25 MG Cap PO SCH (07:57)
[2020-06-23] MEDS: busPIRone 10 MG Tab PO SCH ×3 (07:57→17:40)
[2020-06-23] MEDS: Lactobacillus Acidophilus/Lactobacillus Sporogenes (Probiotic) Tab PO SCH (07:57)
[2020-06-23] MEDS: Roflumilast 500 MCG Tab PO SCH (07:57)
[2020-06-23] MEDS: Escitalopram 20 MG Tab PO SCH (07:57)
[2020-06-23] MEDS: Polyethylene Glycol 3350 Powder 17 GM Packet PO SCH ×2 (07:58→23:34)
[2020-06-23] MEDS: Aspirin 81 MG Tab.EC PO SCH (07:58)
[2020-06-23] MEDS: Magnesium Oxide 400 MG Tab PO SCH (07:58)
[2020-06-23] MEDS: Enoxaparin 40 MG/0.4 ML Syringe SUBCUT SCH (07:58)
[2020-06-23] MEDS: Ferrous Gluconate 324 MG Tab PO SCH (07:58)
[2020-06-23] MEDS ORDERED: Magnesium Hydroxide 400 MG/5 ML Susp 30 ML Cup PO ONE (08:00)
[2020-06-23] MEDS: Losartan 50 MG Tab PO SCH (09:14)
[2020-06-23] MEDS: Propranolol 60 MG Cap.ER PO SCH (09:14)
[2020-06-23] MEDS: traZODone 100 MG Tab PO SCH (17:40)
[2020-06-23] MEDS: Cyclobenzaprine 10 MG Tab PO PRN (21:43)
[2020-06-24] MEDS: Acetaminophen 500 MG Tab PO SCH ×4 (01:07→17:14)
[2020-06-24] MEDS: Albuterol/Ipratropium 3.0-0.5 MG/3 ML Neb Soln INH SCH ×4 (01:07→21:29)
[2020-06-24] MEDS: oxyCODONE 5 MG Tab PO PRN ×3 (01:26→18:00)
[2020-06-24] MEDS: Pantoprazole 40 MG Tab.CR PO SCH (06:30)
[2020-06-24] MEDS: Levothyroxine 75 MCG Tab PO SCH (06:30)
[2020-06-24] MEDS: Divalproex Sodium Delayed-Release 125 MG Cap.Sprink PO SCH ×3 (06:30→18:00)
[2020-06-24] MEDS: Formoterol/Mometasone 200-5 MCG 8.8 GM Inhaler IH SCH ×2 (08:21→17:16)
[2020-06-24] MEDS: Aspirin 81 MG Tab.EC PO SCH (08:22)
[2020-06-24] MEDS: Lactobacillus Acidophilus/Lactobacillus Sporogenes (Probiotic) Tab PO SCH (08:22)
[2020-06-24] MEDS: Roflumilast 500 MCG Tab PO SCH (08:22)
[2020-06-24] MEDS: busPIRone 10 MG Tab PO SCH ×3 (08:22→17:14)
[2020-06-24] MEDS: Losartan 50 MG Tab PO SCH (08:22)
[2020-06-24] MEDS: Ferrous Gluconate 324 MG Tab PO SCH (08:22)
[2020-06-24] MEDS: Ergocalciferol (Vitamin D2) 1.25 MG Cap PO SCH (08:22)
[2020-06-24] MEDS: Tiotropium Inhaler 18 MCG Inhalation Powder Cap Kit of 5 INH SCH (08:22)
[2020-06-24] MEDS: Escitalopram 20 MG Tab PO SCH (08:22)
[2020-06-24] MEDS: Magnesium Oxide 400 MG Tab PO SCH (08:22)
[2020-06-24] MEDS: Propranolol 60 MG Cap.ER PO SCH (08:23)
[2020-06-24] MEDS: Enoxaparin 40 MG/0.4 ML Syringe SUBCUT SCH (08:23)
[2020-06-24] MEDS: DULoxetine 60 MG Cap PO SCH (08:23)
[2020-06-24] MEDS: Polyethylene Glycol 3350 Powder 17 GM Packet PO SCH ×2 (09:27→21:29)
[2020-06-24] MEDS: traZODone 100 MG Tab PO SCH (17:14)
[2020-06-24] MEDS: Cyclobenzaprine 10 MG Tab PO PRN (21:30)
[2020-06-25] MEDS: Albuterol/Ipratropium 3.0-0.5 MG/3 ML Neb Soln INH SCH ×4 (01:44→22:16)
[2020-06-25] MEDS: oxyCODONE 5 MG Tab PO PRN ×4 (01:45→23:35)
[2020-06-25] MEDS: Acetaminophen 500 MG Tab PO SCH ×5 (01:46→17:44)
[2020-06-25] MEDS: DULoxetine 60 MG Cap PO SCH (08:48)
[2020-06-25] MEDS: Losartan 50 MG Tab PO SCH (08:48)
[2020-06-25] MEDS: busPIRone 10 MG Tab PO SCH ×3 (08:50→17:45)
[2020-06-25] MEDS: Magnesium Oxide 400 MG Tab PO SCH (08:50)
[2020-06-25] MEDS: Aspirin 81 MG Tab.EC PO SCH (08:50)
[2020-06-25] MEDS: Levothyroxine 75 MCG Tab PO SCH (08:50)
[2020-06-25] MEDS: Pantoprazole 40 MG Tab.CR PO SCH (08:51)
[2020-06-25] MEDS: Roflumilast 500 MCG Tab PO SCH (08:51)
[2020-06-25] MEDS: Divalproex Sodium Delayed-Release 125 MG Cap.Sprink PO SCH ×3 (08:51→20:00)
[2020-06-25] MEDS: Escitalopram 20 MG Tab PO SCH (08:51)
[2020-06-25] MEDS: Lactobacillus Acidophilus/Lactobacillus Sporogenes (Probiotic) Tab PO SCH (08:51)
[2020-06-25] MEDS: Ferrous Gluconate 324 MG Tab PO SCH (08:52)
[2020-06-25] MEDS: Enoxaparin 40 MG/0.4 ML Syringe SUBCUT SCH (08:52)
[2020-06-25] MEDS: Ergocalciferol (Vitamin D2) 1.25 MG Cap PO SCH (08:52)
[2020-06-25] MEDS: Formoterol/Mometasone 200-5 MCG 8.8 GM Inhaler IH SCH ×2 (08:53→17:45)
[2020-06-25] MEDS: Polyethylene Glycol 3350 Powder 17 GM Packet PO SCH ×2 (08:53→22:17)
[2020-06-25] MEDS: Tiotropium Inhaler 18 MCG Inhalation Powder Cap Kit of 5 INH SCH (08:54)
[2020-06-25] MEDS: Propranolol 60 MG Cap.ER PO SCH (08:54)
[2020-06-25] MEDS: Cyclobenzaprine 10 MG Tab PO PRN ×2 (15:35→23:35)
--- NOTE | 2020-06-25 15:42 | PCM.DCSUM1 ---
Discharge Summary - Hospital Course Free Text/Narrative:: This patient was not seen or treated by me in any capacity. Please review patients chart and contact provider on shift for 04/30/2020. Diagnosis: Stroke: No - Discharge Data Discharge Date: 04/30/20 Discharge Disposition: Home, Self-Care 01 Condition: Good - Discharge Plan *PRESCRIPTION DRUG MONITORING PROGRAM REVIEWED*: Yes Home Medications: Home Meds Roflumilast [Daliresp] 500 mcg PO DAILY 12/26/15 [History] Escitalopram Oxalate [Lexapro] 10 mg PO BEDTIME 09/23/17 [History] Propranolol [Inderal LA] 60 mg PO DAILY 09/23/17 [History] traZODone 100 mg PO BEDTIME 09/23/17 [History] Cyanocobalamin (Vitamin B12) [Vitamin B12] 1,000 mcg IM ASDIRECTED 12/20/18 [History] busPIRone HCl [Buspirone HCl] 15 mg PO TID@08,,12/20/18 [History] Pantoprazole Sodium [Protonix] 40 mg PO DAILY 03/03/19 [History] DULoxetine HCl [Cymbalta] 120 mg PO DAILY 03/30/20 [History] Divalproex Sodium 125 mg PO TID 03/30/20 [History] L. Acidophilus/Pectin, [place]cock [Acidophilus Capsule] 1 cap PO DAILY 03/30/20 [History] Levothyroxine 75 mcg PO DAILY 03/30/20 [History] Olmesartan Medoxomil 30 mg PO DAILY 03/30/20 [History] Cyclobenzaprine [Flexeril] 5 mg PO TID PRN 04/29/20 [History] Acetaminophen [Tylenol Extra Strength] 500 mg PO Q6H 06/18/20 [History] Albuterol Sulfate [Proair Hfa] 1 puff INH Q4H PRN 06/18/20 [History] Albuterol/Ipratropium [DuoNeb 3.0-0.5 MG/3 ML] 1 vial INH Q6H 06/18/20 [History] Aspirin [Halfprin] 81 mg PO DAILY 06/18/20 [History] Budesonide/Formoterol [Symbicort 160-4.5 MCG] 1 puff INH BID 06/18/20 [History] Diclofenac Sodium [Voltaren 1% Gel] 1 applic TOP DAILY PRN 06/18/20 [History] Docusate Sodium/Sennosides [Senna Plus] 2 tab PO BID PRN 06/18/20 [History] Enoxaparin Sodium [Lovenox] 40 mg SQ DAILY 06/18/20 [History] Ergocalciferol (Vitamin D2) [Vitamin D2] 50,000 unit PO DAILY 06/18/20 [History] Ferrous Gluconate 324 mg PO DAILY 06/18/20 [History] Magnesium Oxide 400 mg PO DAILY 06/18/20 [History] Tiotropium [Spiriva HandiHaler] 1 puff INH DAILY 06/18/20 [History] ondansetron HCL [Zofran] 4 mg PO Q6H PRN 06/18/20 [History] oxyCODONE 0.5 tab PO Q6H 06/18/20 [History] traMADol [Ultram] 50 mg PO Q6H PRN 06/18/20 [History] - General Info Date of Service: 04/30/20 - Patient Data Vitals - Most Recent: Last Vital Signs Temp 36.4 C 06/25/20 09:06 Pulse 66 06/25/20 09:06 Resp 16 06/25/20 09:06 BP 114/62 06/25/20 09:06 Pulse Ox 94 L 06/25/20 09:06 Weight - Most Recent: 68.629 kg Med Orders - Current: Current Medications Acetaminophen (Tylenol Extra Strength) 1,000 mg PO Q6H [facility] Last Admin: 06/25/20 13:01 Dose: Not Given Documented by: Albuterol (Ventolin Hfa) 8 gm INH Q4H PRN PRN Reason: Wheezing Albuterol/Ipratropium (Duoneb 3.0-0.5 Mg/3 Ml) 3 ml INH Q6H [facility] Last Admin: 06/25/20 13:00 Dose: 3 ml Documented by: Aspirin (Halfprin) 81 mg PO DAILY [facility] Last Admin: 06/25/20 08:50 Dose: 81 mg Documented by: Buspirone HCl (Buspar) 15 mg PO TID@0800,1200,1700 [facility] Last Admin: 06/25/20 12:59 Dose: 15 mg Documented by: Cyanocobalamin (Vitamin B12) 1,000 mcg IM ASDIRECTED [facility] Cyclobenzaprine HCl (Flexeril) 5 mg PO TID PRN PRN Reason: Muscle Spasm Last Admin: 06/24/20 21:30 Dose: 5 mg Documented by: Divalproex Sodium (Depakote Sprinkle) 125 mg PO TID@0700,1300,1900 [facility] Last Admin: 06/25/20 13:01 Dose: 125 mg Documented by: Duloxetine HCl (Cymbalta) 120 mg PO DAILY [facility] Last Admin: 06/25/20 08:48 Dose: 120 mg Documented by: Enoxaparin Sodium (Lovenox) 40 mg SUBCUT DAILY [facility] Stop: 07/06/26 09:00 Last Admin: 06/25/20 08:52 Dose: 40 mg Documented by: Ergocalciferol (Vitamin D2) 1.25 mg PO DAILY [facility] Last Admin: 06/25/20 08:52 Dose: 1.25 mg Documented by: Escitalopram Oxalate (Lexapro) 10 mg PO DAILY [facility] Last Admin: 06/25/20 08:51 Dose: 10 mg Documented by: Ferrous Gluconate (Ferrous Gluconate) 324 mg PO DAILY [facility] Last Admin: 06/25/20 08:52 Dose: 324 mg Documented by: Lactobacillus Acidophilus (Acidolphilus Extra Strength) 1 tab PO DAILY [facility] Last Admin: 06/25/20 08:51 Dose: 1 tab Documented by: Levothyroxine Sodium (Levothyroxine) 75 mcg PO ACBREAKFAST [facility] Last Admin: 06/25/20 08:50 Dose: 75 mcg Documented by: Losartan Potassium (Cozaar) 50 mg PO DAILY [facility] Last Admin: 06/25/20 08:48 Dose: 50 mg Documented by: Magnesium Oxide (Magnesium Oxide) 400 mg PO DAILY [facility] Last Admin: 06/25/20 08:50 Dose: 400 mg Documented by: Mometasone Furoate/Formoterol Fumar (Dulera 200-5 Mcg) 2 puff IH BID@0800,1700 [facility] Last Admin: 06/25/20 08:53 Dose: 2 puff Documented by: Ondansetron HCl (Zofran Odt) 4 mg PO QID PRN PRN Reason: NAUSEA Oxycodone HCl (Oxycodone) 5 mg PO TID PRN PRN Reason: Pain Last Admin: 06/25/20 08:34 Dose: 5 mg Documented by: Pantoprazole Sodium (Protonix) 40 mg PO ACBREAKFAST [facility] Last Admin: 06/25/20 08:51 Dose: 40 mg Documented by: Polyethylene Glycol (Miralax) 17 gm PO BID [facility] Last Admin: 06/25/20 08:53 Dose: Not Given Documented by: Propranolol HCl (Inderal La) 60 mg PO DAILY [facility] Last Admin: 06/25/20 08:54 Dose: 60 mg Documented by: Roflumilast (Daliresp) 500 mcg PO DAILY [facility] Last Admin: 06/25/20 08:51 Dose: 500 mcg Documented by: Senna/Docusate Sodium (Senna Plus) 2 tab PO BID PRN PRN Reason: Constipation Last Admin: 06/23/20 21:44 Dose: 1 tab Documented by: Tiotropium Ronald (Spiriva Handihaler) 18 mcg INH DAILY [facility] Last Admin: 06/25/20 08:54 Dose: 18 mcg Documented by: Trazodone HCl (Trazodone) 100 mg PO DAILY@1700 [facility] Last Admin: 06/24/20 17:14 Dose: 100 mg Documented by: Trolamine Salicylate (Aspercreme 10%) 1 gm TOP DAILY PRN PRN Reason: Pain Last Admin: 06/20/20 20:56 Dose: 1 applic Documented by: Discontinued Medications Acetaminophen (Tylenol Extra Strength) 1,000 mg PO QID [facility] Last Admin: 06/19/20 19:10 Dose: 1,000 mg Documented by: Buspirone HCl (Buspar) 15 mg PO TID@08,12,20 [facility] Last Admin: 06/19/20 13:15 Dose: 15 mg Documented by: Buspirone HCl (Buspar) Confirm Administered Dose 20 mg .ROUTE .STK-MED ONE Stop: 06/19/20 07:21 Last Admin: 06/19/20 07:49 Dose: Not Given Documented by: Buspirone HCl (Buspar) 15 mg PO TID@0800,1200,2000 [facility] Buspirone HCl (Buspar) Confirm Administered Dose 20 mg .ROUTE .STK-MED ONE Stop: 06/19/20 14:03 Last Admin: 06/19/20 14:41 Dose: Not Given Documented by: Divalproex Sodium (Depakote Sprinkle) 125 mg PO TID [facility] Last Admin: 06/19/20 13:59 Dose: 125 mg Documented by: Levothyroxine Sodium (Levothyroxine) 75 mcg PO DAILY [facility] Last Admin: 06/20/20 06:08 Dose: 75 mcg Documented by: Levothyroxine Sodium (Levothyroxine) 75 mcg PO ACBREAKFAST [facility] Magnesium Hydroxide (Milk Of Magnesia) 30 ml PO ONETIME ONE Stop: 06/23/20 08:01 Last Admin: 06/23/20 07:57 Dose: 30 ml Documented by: Mometasone Furoate/Formoterol Fumar (Dulera 200-5 Mcg) 2 puff IH BID [facility] Last Admin: 06/19/20 07:53 Dose: 2 puff Documented by: Mometasone Furoate/Formoterol Fumar (Dulera 200-5 Mcg) 2 puff IH ONETIME ONE Stop: 06/19/20 17:46 Last Admin: 06/19/20 18:21 Dose: 2 puff Documented by: Oxycodone HCl (Oxycodone) 2.5 mg PO Q6H PRN PRN Reason: SEVERE PAIN (7-10) Stop: 06/22/20 23:59 Last Admin: 06/19/20 03:50 Dose: 2.5 mg Documented by: Pantoprazole Sodium (Protonix) 40 mg PO DAILY [facility] Last Admin: 06/20/20 06:09 Dose: 40 mg Documented by: Tramadol HCl (Ultram) 50 mg PO Q6H PRN PRN Reason: Moderate Pain (4-6) Stop: 06/22/20 23:59 Last Admin: 06/19/20 06:08 Dose: 50 mg Documented by: Trazodone HCl (Trazodone) 100 mg PO BEDTIME [facility] Last Admin: 06/18/20 19:40 Dose: 100 mg Documented by: Trolamine Salicylate (Aspercreme 10%) 1 gm TOP DAILY [facility] Tuberculin PPD (Aplisol) 5 unit IDERM ONETIME ONE Stop: 06/18/20 16:34 Last Admin: 06/19/20 18:25 Dose: 5 unit Documented by:
[2020-06-25] MEDS: traZODone 100 MG Tab PO SCH (17:44)
[2020-06-26] MEDS: Albuterol/Ipratropium 3.0-0.5 MG/3 ML Neb Soln INH SCH ×4 (03:25→19:17)
[2020-06-26] MEDS: Acetaminophen 500 MG Tab PO SCH ×4 (03:26→17:42)
[2020-06-26] MEDS: Divalproex Sodium Delayed-Release 125 MG Cap.Sprink PO SCH ×3 (07:31→19:14)
[2020-06-26] MEDS: Levothyroxine 75 MCG Tab PO SCH (07:32)
[2020-06-26] MEDS: Pantoprazole 40 MG Tab.CR PO SCH (07:32)
[2020-06-26] MEDS: oxyCODONE 5 MG Tab PO PRN ×2 (07:32→15:31)
[2020-06-26] MEDS: Cyclobenzaprine 10 MG Tab PO PRN ×2 (07:37→15:32)
[2020-06-26] MEDS: Formoterol/Mometasone 200-5 MCG 8.8 GM Inhaler IH SCH ×2 (09:03→17:42)
[2020-06-26] MEDS: Tiotropium Inhaler 18 MCG Inhalation Powder Cap Kit of 5 INH SCH (09:04)
[2020-06-26] MEDS: busPIRone 10 MG Tab PO SCH ×3 (09:05→17:43)
[2020-06-26] MEDS: Roflumilast 500 MCG Tab PO SCH (09:06)
[2020-06-26] MEDS: Losartan 50 MG Tab PO SCH (09:06)
[2020-06-26] MEDS: Escitalopram 20 MG Tab PO SCH (09:06)
[2020-06-26] MEDS: Lactobacillus Acidophilus/Lactobacillus Sporogenes (Probiotic) Tab PO SCH (09:06)
[2020-06-26] MEDS: Ergocalciferol (Vitamin D2) 1.25 MG Cap PO SCH (09:06)
[2020-06-26] MEDS: Propranolol 60 MG Cap.ER PO SCH (09:07)
[2020-06-26] MEDS: Ferrous Gluconate 324 MG Tab PO SCH (09:07)
[2020-06-26] MEDS: DULoxetine 60 MG Cap PO SCH (09:07)
[2020-06-26] MEDS: Magnesium Oxide 400 MG Tab PO SCH (09:07)
[2020-06-26] MEDS: Polyethylene Glycol 3350 Powder 17 GM Packet PO SCH ×3 (09:10→19:15)
[2020-06-26] MEDS: Enoxaparin 40 MG/0.4 ML Syringe SUBCUT SCH (09:11)
[2020-06-26] MEDS: Aspirin 81 MG Tab.EC PO SCH (12:25)
[2020-06-26] MEDS: traZODone 100 MG Tab PO SCH (17:43)
[2020-06-27] MEDS: Acetaminophen 500 MG Tab PO SCH ×5 (00:12→19:17)
[2020-06-27] MEDS: oxyCODONE 5 MG Tab PO PRN ×3 (00:12→15:59)
[2020-06-27] MEDS: Albuterol/Ipratropium 3.0-0.5 MG/3 ML Neb Soln INH SCH ×4 (01:45→20:40)
[2020-06-27] MEDS: Levothyroxine 75 MCG Tab PO SCH (06:38)
[2020-06-27] MEDS: Divalproex Sodium Delayed-Release 125 MG Cap.Sprink PO SCH ×3 (06:38→19:17)
[2020-06-27] MEDS: Pantoprazole 40 MG Tab.CR PO SCH (06:38)
[2020-06-27] MEDS: Tiotropium Inhaler 18 MCG Inhalation Powder Cap Kit of 5 INH SCH (08:24)
[2020-06-27] MEDS: Lactobacillus Acidophilus/Lactobacillus Sporogenes (Probiotic) Tab PO SCH (08:25)
[2020-06-27] MEDS: busPIRone 10 MG Tab PO SCH ×3 (08:25→16:49)
[2020-06-27] MEDS: DULoxetine 60 MG Cap PO SCH (08:26)
[2020-06-27] MEDS: Propranolol 60 MG Cap.ER PO SCH (08:26)
[2020-06-27] MEDS: Enoxaparin 40 MG/0.4 ML Syringe SUBCUT SCH (08:27)
[2020-06-27] MEDS: Losartan 50 MG Tab PO SCH (08:28)
[2020-06-27] MEDS: Roflumilast 500 MCG Tab PO SCH (08:28)
[2020-06-27] MEDS: Ferrous Gluconate 324 MG Tab PO SCH (08:36)
[2020-06-27] MEDS: Ergocalciferol (Vitamin D2) 1.25 MG Cap PO SCH (08:36)
[2020-06-27] MEDS: Aspirin 81 MG Tab.EC PO SCH (08:36)
[2020-06-27] MEDS: Escitalopram 20 MG Tab PO SCH (08:36)
[2020-06-27] MEDS: Magnesium Oxide 400 MG Tab PO SCH (08:36)
[2020-06-27] MEDS: Formoterol/Mometasone 200-5 MCG 8.8 GM Inhaler IH SCH ×2 (08:48→17:00)
[2020-06-27] MEDS: Polyethylene Glycol 3350 Powder 17 GM Packet PO SCH ×2 (08:49→19:16)
[2020-06-27] MEDS: traZODone 100 MG Tab PO SCH (16:49)
[2020-06-27] MEDS: Cyclobenzaprine 10 MG Tab PO PRN (19:18)
[2020-06-28] MEDS: Acetaminophen 500 MG Tab PO SCH ×5 (00:06→23:18)
[2020-06-28] MEDS: oxyCODONE 5 MG Tab PO PRN ×3 (00:06→16:10)
[2020-06-28] MEDS: Pantoprazole 40 MG Tab.CR PO SCH (06:41)
[2020-06-28] MEDS: Levothyroxine 75 MCG Tab PO SCH (06:41)
[2020-06-28] MEDS: Divalproex Sodium Delayed-Release 125 MG Cap.Sprink PO SCH ×3 (06:41→18:38)
[2020-06-28] MEDS: Escitalopram 20 MG Tab PO SCH (08:05)
[2020-06-28] MEDS: busPIRone 10 MG Tab PO SCH ×3 (08:06→17:18)
[2020-06-28] MEDS: Magnesium Oxide 400 MG Tab PO SCH (08:06)
[2020-06-28] MEDS: Ergocalciferol (Vitamin D2) 1.25 MG Cap PO SCH (08:06)
[2020-06-28] MEDS: Roflumilast 500 MCG Tab PO SCH (08:06)
[2020-06-28] MEDS: Aspirin 81 MG Tab.EC PO SCH (08:06)
[2020-06-28] MEDS: Lactobacillus Acidophilus/Lactobacillus Sporogenes (Probiotic) Tab PO SCH (08:07)
[2020-06-28] MEDS: Propranolol 60 MG Cap.ER PO SCH (08:07)
[2020-06-28] MEDS: Losartan 50 MG Tab PO SCH (08:07)
[2020-06-28] MEDS: DULoxetine 60 MG Cap PO SCH (08:07)
[2020-06-28] MEDS: Ferrous Gluconate 324 MG Tab PO SCH (08:07)
[2020-06-28] MEDS: Enoxaparin 40 MG/0.4 ML Syringe SUBCUT SCH (08:10)
[2020-06-28] MEDS: Polyethylene Glycol 3350 Powder 17 GM Packet PO SCH ×2 (08:11→20:18)
[2020-06-28] MEDS: Tiotropium Inhaler 18 MCG Inhalation Powder Cap Kit of 5 INH SCH (12:27)
[2020-06-28] MEDS: Formoterol/Mometasone 200-5 MCG 8.8 GM Inhaler IH SCH ×2 (12:27→17:24)
[2020-06-28] MEDS: Cyclobenzaprine 10 MG Tab PO PRN (12:28)
[2020-06-28] MEDS: traZODone 100 MG Tab PO SCH (17:18)
[2020-06-29] MEDS: Cyclobenzaprine 10 MG Tab PO PRN ×2 (05:46→14:07)
[2020-06-29] MEDS: Acetaminophen 500 MG Tab PO SCH ×3 (05:47→17:15)
[2020-06-29] MEDS: oxyCODONE 5 MG Tab PO PRN ×2 (07:51→17:13)
[2020-06-29] MEDS: Pantoprazole 40 MG Tab.CR PO SCH (07:52)
[2020-06-29] MEDS: Levothyroxine 75 MCG Tab PO SCH (07:52)
[2020-06-29] MEDS: Formoterol/Mometasone 200-5 MCG 8.8 GM Inhaler IH SCH ×2 (07:53→17:35)
[2020-06-29] MEDS: Tiotropium Inhaler 18 MCG Inhalation Powder Cap Kit of 5 INH SCH (07:54)
[2020-06-29] MEDS: Escitalopram 20 MG Tab PO SCH (08:28)
[2020-06-29] MEDS: Enoxaparin 40 MG/0.4 ML Syringe SUBCUT SCH (08:28)
[2020-06-29] MEDS: busPIRone 10 MG Tab PO SCH ×3 (08:28→17:14)
[2020-06-29] MEDS: Roflumilast 500 MCG Tab PO SCH (08:29)
[2020-06-29] MEDS: Ergocalciferol (Vitamin D2) 1.25 MG Cap PO SCH (08:29)
[2020-06-29] MEDS: Aspirin 81 MG Tab.EC PO SCH (08:29)
[2020-06-29] MEDS: Magnesium Oxide 400 MG Tab PO SCH (08:29)
[2020-06-29] MEDS: Propranolol 60 MG Cap.ER PO SCH (08:29)
[2020-06-29] MEDS: Losartan 50 MG Tab PO SCH (08:29)
[2020-06-29] MEDS: Lactobacillus Acidophilus/Lactobacillus Sporogenes (Probiotic) Tab PO SCH (08:29)
[2020-06-29] MEDS: Ferrous Gluconate 324 MG Tab PO SCH (08:29)
[2020-06-29] MEDS: DULoxetine 60 MG Cap PO SCH (08:29)
[2020-06-29] MEDS: Divalproex Sodium Delayed-Release 125 MG Cap.Sprink PO SCH ×3 (08:33→18:47)
[2020-06-29] MEDS: Polyethylene Glycol 3350 Powder 17 GM Packet PO SCH ×2 (08:34→19:17)
[2020-06-29] MEDS: traZODone 100 MG Tab PO SCH (17:12)
[2020-06-30] MEDS: Acetaminophen 500 MG Tab PO SCH ×4 (04:03→17:12)
[2020-06-30] MEDS: Divalproex Sodium Delayed-Release 125 MG Cap.Sprink PO SCH ×3 (07:38→19:29)
[2020-06-30] MEDS: Pantoprazole 40 MG Tab.CR PO SCH (07:38)
[2020-06-30] MEDS: Levothyroxine 75 MCG Tab PO SCH (07:38)
[2020-06-30] MEDS: Escitalopram 20 MG Tab PO SCH (08:01)
[2020-06-30] MEDS: DULoxetine 60 MG Cap PO SCH (08:02)
[2020-06-30] MEDS: Roflumilast 500 MCG Tab PO SCH (08:02)
[2020-06-30] MEDS: Ergocalciferol (Vitamin D2) 1.25 MG Cap PO SCH (08:02)
[2020-06-30] MEDS: Magnesium Oxide 400 MG Tab PO SCH (08:02)
[2020-06-30] MEDS: Losartan 50 MG Tab PO SCH (08:02)
[2020-06-30] MEDS: Aspirin 81 MG Tab.EC PO SCH (08:03)
[2020-06-30] MEDS: oxyCODONE 5 MG Tab PO PRN (08:03)
[2020-06-30] MEDS: Ferrous Gluconate 324 MG Tab PO SCH (08:03)
[2020-06-30] MEDS: Lactobacillus Acidophilus/Lactobacillus Sporogenes (Probiotic) Tab PO SCH (08:03)
[2020-06-30] MEDS: Propranolol 60 MG Cap.ER PO SCH (08:03)
[2020-06-30] MEDS: Polyethylene Glycol 3350 Powder 17 GM Packet PO SCH ×2 (08:13→19:47)
[2020-06-30] MEDS: Enoxaparin 40 MG/0.4 ML Syringe SUBCUT SCH (08:45)
[2020-06-30] MEDS: Formoterol/Mometasone 200-5 MCG 8.8 GM Inhaler IH SCH ×2 (08:45→17:12)
[2020-06-30] MEDS: Tiotropium Inhaler 18 MCG Inhalation Powder Cap Kit of 5 INH SCH (08:45)
[2020-06-30] MEDS: busPIRone 10 MG Tab PO SCH ×3 (08:45→17:11)
[2020-06-30] MEDS: Cyclobenzaprine 10 MG Tab PO PRN (16:20)
[2020-06-30] MEDS: traZODone 100 MG Tab PO SCH (17:11)
[2020-06-30] MEDS: Albuterol/Ipratropium 3.0-0.5 MG/3 ML Neb Soln NEB PRN (18:17)
[2020-07-01] MEDS: Acetaminophen 500 MG Tab PO SCH ×5 (00:14→23:51)
[2020-07-01] MEDS: Divalproex Sodium Delayed-Release 125 MG Cap.Sprink PO SCH ×3 (06:47→18:00)
[2020-07-01] MEDS: Pantoprazole 40 MG Tab.CR PO SCH (06:47)
[2020-07-01] MEDS: Levothyroxine 75 MCG Tab PO SCH (06:47)
[2020-07-01] MEDS: Propranolol 60 MG Cap.ER PO SCH (07:38)
[2020-07-01] MEDS: Lactobacillus Acidophilus/Lactobacillus Sporogenes (Probiotic) Tab PO SCH (07:38)
[2020-07-01] MEDS: Ferrous Gluconate 324 MG Tab PO SCH (07:38)
[2020-07-01] MEDS: Magnesium Oxide 400 MG Tab PO SCH (07:38)
[2020-07-01] MEDS: Tiotropium Inhaler 18 MCG Inhalation Powder Cap Kit of 5 INH SCH (07:38)
[2020-07-01] MEDS: Ergocalciferol (Vitamin D2) 1.25 MG Cap PO SCH (07:38)
[2020-07-01] MEDS: DULoxetine 60 MG Cap PO SCH (07:38)
[2020-07-01] MEDS: Losartan 50 MG Tab PO SCH (07:38)
[2020-07-01] MEDS: Formoterol/Mometasone 200-5 MCG 8.8 GM Inhaler IH SCH ×2 (07:38→18:01)
[2020-07-01] MEDS: Roflumilast 500 MCG Tab PO SCH (07:39)
[2020-07-01] MEDS: Aspirin 81 MG Tab.EC PO SCH (07:39)
[2020-07-01] MEDS: Escitalopram 20 MG Tab PO SCH (07:39)
[2020-07-01] MEDS: Polyethylene Glycol 3350 Powder 17 GM Packet PO SCH ×2 (07:41→19:48)
[2020-07-01] MEDS: Enoxaparin 40 MG/0.4 ML Syringe SUBCUT SCH (07:41)
--- NOTE | 2020-07-01 08:05 | PCM.PN ---
- General Info Date of Service: 06/24/20 Subjective Update: Patient stable and improving with ambulation and gait. No other health concerns. - Review of Systems General: Reports: Weakness HEENT: Reports: No Symptoms Pulmonary: Reports: No Symptoms Cardiovascular: Reports: No Symptoms Gastrointestinal: Reports: No Symptoms Genitourinary: Reports: No Symptoms Musculoskeletal: Reports: Leg Pain, Joint Pain Skin: Reports: No Symptoms Neurological: Reports: Weakness - Patient Data Vitals - Most Recent: Last Vital Signs Temp 37.2 C 06/30/20 07:43 Pulse 67 06/30/20 07:43 Resp 14 06/30/20 07:43 BP 157/70 H 07/01/20 07:38 Pulse Ox 94 L 06/30/20 07:43 Weight - Most Recent: 68.492 kg Med Orders - Current: Current Medications Acetaminophen (Tylenol Extra Strength) 1,000 mg PO Q6H [facility] Last Admin: 07/01/20 06:47 Dose: 1,000 mg Documented by: Albuterol (Ventolin Hfa) 8 gm INH Q4H PRN PRN Reason: Wheezing Albuterol/Ipratropium (Duoneb 3.0-0.5 Mg/3 Ml) 3 ml NEB Q6H PRN PRN Reason: Wheezing Last Admin: 06/30/20 18:17 Dose: 3 ml Documented by: Aspirin (Halfprin) 81 mg PO DAILY [facility] Last Admin: 07/01/20 07:39 Dose: 81 mg Documented by: Buspirone HCl (Buspar) 15 mg PO TID@0800,1200,1700 [facility] Last Admin: 06/30/20 17:11 Dose: 15 mg Documented by: Cyanocobalamin (Vitamin B12) 1,000 mcg IM ASDIRECTED [facility] Cyclobenzaprine HCl (Flexeril) 5 mg PO TID PRN PRN Reason: Muscle Spasm Last Admin: 06/30/20 16:20 Dose: 5 mg Documented by: Divalproex Sodium (Depakote Sprinkle) 125 mg PO TID@0700,1300,1900 [facility] Last Admin: 07/01/20 06:47 Dose: 125 mg Documented by: Duloxetine HCl (Cymbalta) 120 mg PO DAILY [facility] Last Admin: 07/01/20 07:38 Dose: 120 mg Documented by: Enoxaparin Sodium (Lovenox) 40 mg SUBCUT DAILY [facility] Stop: 07/06/26 09:00 Last Admin: 07/01/20 07:41 Dose: 40 mg Documented by: Ergocalciferol (Vitamin D2) 1.25 mg PO DAILY [facility] Last Admin: 07/01/20 07:38 Dose: 1.25 mg Documented by: Escitalopram Oxalate (Lexapro) 10 mg PO DAILY [facility] Last Admin: 07/01/20 07:39 Dose: 10 mg Documented by: Ferrous Gluconate (Ferrous Gluconate) 324 mg PO DAILY [facility] Last Admin: 07/01/20 07:38 Dose: 324 mg Documented by: Lactobacillus Acidophilus (Acidolphilus Extra Strength) 1 tab PO DAILY [facility] Last Admin: 07/01/20 07:38 Dose: 1 tab Documented by: Levothyroxine Sodium (Levothyroxine) 75 mcg PO ACBREAKFAST [facility] Last Admin: 07/01/20 06:47 Dose: 75 mcg Documented by: Losartan Potassium (Cozaar) 50 mg PO DAILY [facility] Last Admin: 07/01/20 07:38 Dose: 50 mg Documented by: Magnesium Oxide (Magnesium Oxide) 400 mg PO DAILY [facility] Last Admin: 07/01/20 07:38 Dose: 400 mg Documented by: Mometasone Furoate/Formoterol Fumar (Dulera 200-5 Mcg) 2 puff IH BID@0800,1700 [facility] Last Admin: 07/01/20 07:38 Dose: 2 puff Documented by: Ondansetron HCl (Zofran Odt) 4 mg PO QID PRN PRN Reason: NAUSEA Oxycodone HCl (Oxycodone) 5 mg PO DAILY PRN PRN Reason: Pain Last Admin: 06/30/20 08:03 Dose: 5 mg Documented by: Pantoprazole Sodium (Protonix) 40 mg PO ACBREAKFAST [facility] Last Admin: 07/01/20 06:47 Dose: 40 mg Documented by: Polyethylene Glycol (Miralax) 17 gm PO BID [facility] Last Admin: 07/01/20 07:41 Dose: Not Given Documented by: Propranolol HCl (Inderal La) 60 mg PO DAILY [facility] Last Admin: 07/01/20 07:38 Dose: 60 mg Documented by: Roflumilast (Daliresp) 500 mcg PO DAILY [facility] Last Admin: 07/01/20 07:39 Dose: 500 mcg Documented by: Senna/Docusate Sodium (Senna Plus) 2 tab PO BID PRN PRN Reason: Constipation Last Admin: 06/28/20 08:17 Dose: 2 tab Documented by: Tiotropium [place] (Spiriva Handihaler) 18 mcg INH DAILY [facility] Last Admin: 07/01/20 07:38 Dose: 18 mcg Documented by: Trazodone HCl (Trazodone) 100 mg PO DAILY@1700 [facility] Last Admin: 06/30/20 17:11 Dose: 100 mg Documented by: Trolamine Salicylate (Aspercreme 10%) 1 gm TOP DAILY PRN PRN Reason: Pain Last Admin: 06/20/20 20:56 Dose: 1 applic Documented by: Discontinued Medications Acetaminophen (Tylenol Extra Strength) 1,000 mg PO QID [facility] Last Admin: 06/19/20 19:10 Dose: 1,000 mg Documented by: Albuterol/Ipratropium (Duoneb 3.0-0.5 Mg/3 Ml) 3 ml INH Q6H [facility] Last Admin: 06/27/20 20:40 Dose: Not Given Documented by: Buspirone HCl (Buspar) 15 mg PO TID@08,12,20 [facility] Last Admin: 06/19/20 13:15 Dose: 15 mg Documented by: Buspirone HCl (Buspar) Confirm Administered Dose 20 mg .ROUTE .STK-MED ONE Stop: 06/19/20 07:21 Last Admin: 06/19/20 07:49 Dose: Not Given Documented by: Buspirone HCl (Buspar) 15 mg PO TID@0800,1200,2000 [facility] Buspirone HCl (Buspar) Confirm Administered Dose 20 mg .ROUTE .STK-MED ONE Stop: 06/19/20 14:03 Last Admin: 06/19/20 14:41 Dose: Not Given Documented by: Divalproex Sodium (Depakote Sprinkle) 125 mg PO TID [facility] Last Admin: 06/19/20 13:59 Dose: 125 mg Documented by: Levothyroxine Sodium (Levothyroxine) 75 mcg PO DAILY [facility] Last Admin: 06/20/20 06:08 Dose: 75 mcg Documented by: Levothyroxine Sodium (Levothyroxine) 75 mcg PO ACBREAKFAST [facility] Magnesium Hydroxide (Milk Of Magnesia) 30 ml PO ONETIME ONE Stop: 06/23/20 08:01 Last Admin: 06/23/20 07:57 Dose: 30 ml Documented by: Mometasone Furoate/Formoterol Fumar (Dulera 200-5 Mcg) 2 puff IH BID [facility] Last Admin: 06/19/20 07:53 Dose: 2 puff Documented by: Mometasone Furoate/Formoterol Fumar (Dulera 200-5 Mcg) 2 puff IH ONETIME ONE Stop: 06/19/20 17:46 Last Admin: 06/19/20 18:21 Dose: 2 puff Documented by: Mometasone Furoate/Formoterol Fumar (Dulera 200-5 Mcg) 60 puff .ROUTE .STK-MED ONE Stop: 06/20/20 08:46 Oxycodone HCl (Oxycodone) 2.5 mg PO Q6H PRN PRN Reason: SEVERE PAIN (7-10) Stop: 06/22/20 23:59 Last Admin: 06/19/20 03:50 Dose: 2.5 mg Documented by: Oxycodone HCl (Oxycodone) 5 mg PO TID PRN PRN Reason: Pain Last Admin: 06/28/20 08:05 Dose: 5 mg Documented by: Oxycodone HCl (Oxycodone) 5 mg PO BID PRN PRN Reason: Pain Stop: 06/29/20 16:00 Last Admin: 06/29/20 17:13 Dose: 5 mg Documented by: Pantoprazole Sodium (Protonix) 40 mg PO DAILY [facility] Last Admin: 06/20/20 06:09 Dose: 40 mg Documented by: Tramadol HCl (Ultram) 50 mg PO Q6H PRN PRN Reason: Moderate Pain (4-6) Stop: 06/22/20 23:59 Last Admin: 06/19/20 06:08 Dose: 50 mg Documented by: Trazodone HCl (Trazodone) 100 mg PO BEDTIME [facility] Last Admin: 06/18/20 19:40 Dose: 100 mg Documented by: Trolamine Salicylate (Aspercreme 10%) 1 gm TOP DAILY [facility] Tuberculin PPD (Aplisol) 5 unit IDERM ONETIME ONE Stop: 06/18/20 16:34 Last Admin: 06/19/20 18:25 Dose: 5 unit Documented by: - Exam General: Alert, Oriented, Cooperative HEENT: Pupils Equal, Pupils Reactive Neck: Supple Lungs: Clear to Auscultation, Normal Respiratory Effort Cardiovascular: Regular Rate, Regular Rhythm GI/Abdominal Exam: Normal Bowel Sounds Back Exam: Paraspinal Tenderness Extremities: Pedal Edema, Joint Swelling, Leg Pain Sepsis Event Note - Evaluation Sepsis Screening Result: No Definite Risk - Focused Exam Vital Signs: Vital Signs BP 07/01/20 07:38 157/70 H - Problem List & Annotations (1) Fracture of femoral neck, right SNOMED Code(s): 8110421, 30906819175177809 Code(s): S72.001A - FRACTURE OF UNSP PART OF NECK OF RIGHT FEMUR, INIT Status: Acute Current Visit: No Qualifiers: Encounter type: sequela (2) Muscle weakness SNOMED Code(s): 17249483 Code(s): M62.81 - MUSCLE WEAKNESS (GENERALIZED) Status: Chronic Priority: Medium Current Visit: Yes Onset Date: 07/08/15 (3) Post-op pain SNOMED Code(s): 077175974 Code(s): G89.18 - OTHER ACUTE POSTPROCEDURAL PAIN Status: Acute Priority: Medium Current Visit: Yes - Problem List Review Problem List Initiated/Reviewed/Updated: Yes - My Orders Last 24 Hours: My Active Orders 07/16/20 13:00 Cyanocobalamin (Vitamin B12) [Vitamin B12] 1,000 mcg IM ASDIRECTED - Plan Plan:: Patient admitted for sub acute rehabilitation and management. Pain control as directed. 06/24/20 Patient to continue current rehabilitation and management. No changes to care or therapy.
--- NOTE | 2020-07-01 08:21 | PCM.PN ---
- General Info Date of Service: 07/01/20 Subjective Update: Patient feeling fine. Notes continued hip pain from post surgical standpoint. She would like to continue her oxycodone. No other concerns and patient requesting to go home. - Review of Systems General: Reports: Weakness HEENT: Reports: No Symptoms Pulmonary: Reports: No Symptoms Cardiovascular: Reports: No Symptoms Gastrointestinal: Reports: No Symptoms Genitourinary: Reports: No Symptoms Musculoskeletal: Reports: Joint Pain Skin: Reports: No Symptoms Neurological: Reports: Weakness Psychiatric: Reports: No Symptoms - Patient Data Vitals - Most Recent: Last Vital Signs Temp 37.2 C 06/30/20 07:43 Pulse 67 06/30/20 07:43 Resp 14 06/30/20 07:43 BP 157/70 H 07/01/20 07:38 Pulse Ox 94 L 06/30/20 07:43 Weight - Most Recent: 68.492 kg Med Orders - Current: Current Medications Acetaminophen (Tylenol Extra Strength) 1,000 mg PO Q6H [facility] Last Admin: 07/01/20 06:47 Dose: 1,000 mg Documented by: Albuterol (Ventolin Hfa) 8 gm INH Q4H PRN PRN Reason: Wheezing Albuterol/Ipratropium (Duoneb 3.0-0.5 Mg/3 Ml) 3 ml NEB Q6H PRN PRN Reason: Wheezing Last Admin: 06/30/20 18:17 Dose: 3 ml Documented by: Aspirin (Halfprin) 81 mg PO DAILY [facility] Last Admin: 07/01/20 07:39 Dose: 81 mg Documented by: Buspirone HCl (Buspar) 15 mg PO TID@0800,1200,1700 [facility] Last Admin: 06/30/20 17:11 Dose: 15 mg Documented by: Cyanocobalamin (Vitamin B12) 1,000 mcg IM ASDIRECTED [facility] Cyclobenzaprine HCl (Flexeril) 5 mg PO TID PRN PRN Reason: Muscle Spasm Last Admin: 06/30/20 16:20 Dose: 5 mg Documented by: Divalproex Sodium (Depakote Sprinkle) 125 mg PO TID@0700,1300,1900 [facility] Last Admin: 07/01/20 06:47 Dose: 125 mg Documented by: Duloxetine HCl (Cymbalta) 120 mg PO DAILY [facility] Last Admin: 07/01/20 07:38 Dose: 120 mg Documented by: Enoxaparin Sodium (Lovenox) 40 mg SUBCUT DAILY [facility] Stop: 07/06/26 09:00 Last Admin: 07/01/20 07:41 Dose: 40 mg Documented by: Ergocalciferol (Vitamin D2) 1.25 mg PO DAILY [facility] Last Admin: 07/01/20 07:38 Dose: 1.25 mg Documented by: Escitalopram Oxalate (Lexapro) 10 mg PO DAILY [facility] Last Admin: 07/01/20 07:39 Dose: 10 mg Documented by: Ferrous Gluconate (Ferrous Gluconate) 324 mg PO DAILY [facility] Last Admin: 07/01/20 07:38 Dose: 324 mg Documented by: Lactobacillus Acidophilus (Acidolphilus Extra Strength) 1 tab PO DAILY [facility] Last Admin: 07/01/20 07:38 Dose: 1 tab Documented by: Levothyroxine Sodium (Levothyroxine) 75 mcg PO ACBREAKFAST [facility] Last Admin: 07/01/20 06:47 Dose: 75 mcg Documented by: Losartan Potassium (Cozaar) 50 mg PO DAILY [facility] Last Admin: 07/01/20 07:38 Dose: 50 mg Documented by: Magnesium Oxide (Magnesium Oxide) 400 mg PO DAILY [facility] Last Admin: 07/01/20 07:38 Dose: 400 mg Documented by: Mometasone Furoate/Formoterol Fumar (Dulera 200-5 Mcg) 2 puff IH BID@0800,1700 [facility] Last Admin: 07/01/20 07:38 Dose: 2 puff Documented by: Ondansetron HCl (Zofran Odt) 4 mg PO QID PRN PRN Reason: NAUSEA Oxycodone HCl (Oxycodone) 5 mg PO DAILY PRN PRN Reason: Pain Last Admin: 06/30/20 08:03 Dose: 5 mg Documented by: Pantoprazole Sodium (Protonix) 40 mg PO ACBREAKFAST [facility] Last Admin: 07/01/20 06:47 Dose: 40 mg Documented by: Polyethylene Glycol (Miralax) 17 gm PO BID [facility] Last Admin: 07/01/20 07:41 Dose: Not Given Documented by: Propranolol HCl (Inderal La) 60 mg PO DAILY [facility] Last Admin: 07/01/20 07:38 Dose: 60 mg Documented by: Roflumilast (Daliresp) 500 mcg PO DAILY [facility] Last Admin: 07/01/20 07:39 Dose: 500 mcg Documented by: Senna/Docusate Sodium (Senna Plus) 2 tab PO BID PRN PRN Reason: Constipation Last Admin: 06/28/20 08:17 Dose: 2 tab Documented by: Tiotropium [place] (Spiriva Handihaler) 18 mcg INH DAILY [facility] Last Admin: 07/01/20 07:38 Dose: 18 mcg Documented by: Trazodone HCl (Trazodone) 100 mg PO DAILY@1700 [facility] Last Admin: 06/30/20 17:11 Dose: 100 mg Documented by: Trolamine Salicylate (Aspercreme 10%) 1 gm TOP DAILY PRN PRN Reason: Pain Last Admin: 06/20/20 20:56 Dose: 1 applic Documented by: Discontinued Medications Acetaminophen (Tylenol Extra Strength) 1,000 mg PO QID [facility] Last Admin: 06/19/20 19:10 Dose: 1,000 mg Documented by: Albuterol/Ipratropium (Duoneb 3.0-0.5 Mg/3 Ml) 3 ml INH Q6H [facility] Last Admin: 06/27/20 20:40 Dose: Not Given Documented by: Buspirone HCl (Buspar) 15 mg PO TID@08,12,20 [facility] Last Admin: 06/19/20 13:15 Dose: 15 mg Documented by: Buspirone HCl (Buspar) Confirm Administered Dose 20 mg .ROUTE .STK-MED ONE Stop: 06/19/20 07:21 Last Admin: 06/19/20 07:49 Dose: Not Given Documented by: Buspirone HCl (Buspar) 15 mg PO TID@0800,1200,2000 [facility] Buspirone HCl (Buspar) Confirm Administered Dose 20 mg .ROUTE .STK-MED ONE Stop: 06/19/20 14:03 Last Admin: 06/19/20 14:41 Dose: Not Given Documented by: Divalproex Sodium (Depakote Sprinkle) 125 mg PO TID [facility] Last Admin: 06/19/20 13:59 Dose: 125 mg Documented by: Levothyroxine Sodium (Levothyroxine) 75 mcg PO DAILY [facility] Last Admin: 06/20/20 06:08 Dose: 75 mcg Documented by: Levothyroxine Sodium (Levothyroxine) 75 mcg PO ACBREAKFAST [facility] Magnesium Hydroxide (Milk Of Magnesia) 30 ml PO ONETIME ONE Stop: 06/23/20 08:01 Last Admin: 06/23/20 07:57 Dose: 30 ml Documented by: Mometasone Furoate/Formoterol Fumar (Dulera 200-5 Mcg) 2 puff IH BID [facility] Last Admin: 06/19/20 07:53 Dose: 2 puff Documented by: Mometasone Furoate/Formoterol Fumar (Dulera 200-5 Mcg) 2 puff IH ONETIME ONE Stop: 06/19/20 17:46 Last Admin: 06/19/20 18:21 Dose: 2 puff Documented by: Mometasone Furoate/Formoterol Fumar (Dulera 200-5 Mcg) 60 puff .ROUTE .STK-MED ONE Stop: 06/20/20 08:46 Oxycodone HCl (Oxycodone) 2.5 mg PO Q6H PRN PRN Reason: SEVERE PAIN (7-10) Stop: 06/22/20 23:59 Last Admin: 06/19/20 03:50 Dose: 2.5 mg Documented by: Oxycodone HCl (Oxycodone) 5 mg PO TID PRN PRN Reason: Pain Last Admin: 06/28/20 08:05 Dose: 5 mg Documented by: Oxycodone HCl (Oxycodone) 5 mg PO BID PRN PRN Reason: Pain Stop: 06/29/20 16:00 Last Admin: 06/29/20 17:13 Dose: 5 mg Documented by: Pantoprazole Sodium (Protonix) 40 mg PO DAILY [facility] Last Admin: 06/20/20 06:09 Dose: 40 mg Documented by: Tramadol HCl (Ultram) 50 mg PO Q6H PRN PRN Reason: Moderate Pain (4-6) Stop: 06/22/20 23:59 Last Admin: 06/19/20 06:08 Dose: 50 mg Documented by: Trazodone HCl (Trazodone) 100 mg PO BEDTIME [facility] Last Admin: 06/18/20 19:40 Dose: 100 mg Documented by: Trolamine Salicylate (Aspercreme 10%) 1 gm TOP DAILY [facility] Tuberculin PPD (Aplisol) 5 unit IDERM ONETIME ONE Stop: 06/18/20 16:34 Last Admin: 06/19/20 18:25 Dose: 5 unit Documented by: - Exam General: Alert, Oriented, Cooperative HEENT: Pupils Equal, Pupils Reactive, EOMI Neck: Supple Lungs: Clear to Auscultation, Normal Respiratory Effort Cardiovascular: Regular Rate, Regular Rhythm Extremities: Leg Pain Sepsis Event Note - Evaluation Sepsis Screening Result: No Definite Risk - Focused Exam Vital Signs: Vital Signs BP 07/01/20 07:38 157/70 H - Problem List & Annotations (1) Fracture of femoral neck, right SNOMED Code(s): 1123192, 09779848168591761 Code(s): S72.001A - FRACTURE OF UNSP PART OF NECK OF RIGHT FEMUR, INIT Status: Acute Current Visit: No Qualifiers: Encounter type: sequela (2) Muscle weakness SNOMED Code(s): 03192466 Code(s): M62.81 - MUSCLE WEAKNESS (GENERALIZED) Status: Chronic Priority: Medium Current Visit: Yes Onset Date: 07/08/15 (3) Post-op pain SNOMED Code(s): 943050974 Code(s): G89.18 - OTHER ACUTE POSTPROCEDURAL PAIN Status: Acute Priority: Medium Current Visit: Yes - Problem List Review Problem List Initiated/Reviewed/Updated: Yes - My Orders Last 24 Hours: My Active Orders 07/16/20 13:00 Cyanocobalamin (Vitamin B12) [Vitamin B12] 1,000 mcg IM ASDIRECTED - Plan Plan:: Patient admitted for sub acute rehabilitation and management. Pain control as directed. 06/24/20 Patient to continue current rehabilitation and management. No changes to care or therapy. 07/01/20 Patient will need to continue current rehabilitation management and recommendations prior to discharge planning. She remains high risk for falls if she does not follow directions or able to be compliant with them. PT/OT to continue and f/u care plan tomorrow.
[2020-07-01] MEDS: oxyCODONE 5 MG Tab PO PRN (09:00)
[2020-07-01] MEDS: busPIRone 10 MG Tab PO SCH ×3 (09:01→17:40)
[2020-07-01] MEDS: traZODone 100 MG Tab PO SCH (17:40)
[2020-07-01] MEDS: Cyclobenzaprine 10 MG Tab PO PRN (19:45)
[2020-07-02] MEDS: Acetaminophen 500 MG Tab PO SCH ×3 (07:30→18:03)
[2020-07-02] MEDS: Levothyroxine 75 MCG Tab PO SCH (07:37)
[2020-07-02] MEDS: Divalproex Sodium Delayed-Release 125 MG Cap.Sprink PO SCH ×3 (07:37→18:04)
[2020-07-02] MEDS: Pantoprazole 40 MG Tab.CR PO SCH (07:38)
[2020-07-02] MEDS: Roflumilast 500 MCG Tab PO SCH (07:53)
[2020-07-02] MEDS: Escitalopram 20 MG Tab PO SCH (07:53)
[2020-07-02] MEDS: Ferrous Gluconate 324 MG Tab PO SCH (07:53)
[2020-07-02] MEDS: Aspirin 81 MG Tab.EC PO SCH (07:53)
[2020-07-02] MEDS: Magnesium Oxide 400 MG Tab PO SCH (07:53)
[2020-07-02] MEDS: DULoxetine 60 MG Cap PO SCH (07:53)
[2020-07-02] MEDS: Propranolol 60 MG Cap.ER PO SCH (07:54)
[2020-07-02] MEDS: Enoxaparin 40 MG/0.4 ML Syringe SUBCUT SCH (07:54)
[2020-07-02] MEDS: busPIRone 10 MG Tab PO SCH ×3 (07:54→17:31)
[2020-07-02] MEDS: Lactobacillus Acidophilus/Lactobacillus Sporogenes (Probiotic) Tab PO SCH (07:54)
[2020-07-02] MEDS: Ergocalciferol (Vitamin D2) 1.25 MG Cap PO SCH (07:54)
[2020-07-02] MEDS: Formoterol/Mometasone 200-5 MCG 8.8 GM Inhaler IH SCH ×2 (07:55→17:16)
[2020-07-02] MEDS: Tiotropium Inhaler 18 MCG Inhalation Powder Cap Kit of 5 INH SCH (07:55)
[2020-07-02] MEDS: Polyethylene Glycol 3350 Powder 17 GM Packet PO SCH ×2 (07:56→19:18)
[2020-07-02] MEDS: Losartan 50 MG Tab PO SCH (08:37)
[2020-07-02] MEDS: oxyCODONE 5 MG Tab PO PRN ×2 (08:37→19:14)
[2020-07-02] MEDS: Cyclobenzaprine 10 MG Tab PO PRN (14:37)
[2020-07-02] MEDS: traZODone 100 MG Tab PO SCH (17:29)
[2020-07-02] MEDS: Trolamine Salicylate/Aloe Vera 10% Crm 85 GM Tube TOP PRN (18:12)
[2020-07-03] MEDS: Acetaminophen 500 MG Tab PO SCH ×4 (01:07→18:09)
[2020-07-03] MEDS: Cyclobenzaprine 10 MG Tab PO PRN ×2 (03:09→14:48)
[2020-07-03] MEDS: Levothyroxine 75 MCG Tab PO SCH (06:05)
[2020-07-03] MEDS: Pantoprazole 40 MG Tab.CR PO SCH (06:05)
[2020-07-03] MEDS: Divalproex Sodium Delayed-Release 125 MG Cap.Sprink PO SCH ×3 (06:05→18:11)
[2020-07-03] MEDS: Tiotropium Inhaler 18 MCG Inhalation Powder Cap Kit of 5 INH SCH (08:12)
[2020-07-03] MEDS: Formoterol/Mometasone 200-5 MCG 8.8 GM Inhaler IH SCH ×2 (08:12→18:12)
[2020-07-03] MEDS: oxyCODONE 5 MG Tab PO PRN ×2 (08:13→19:36)
[2020-07-03] MEDS: busPIRone 10 MG Tab PO SCH ×3 (08:15→18:11)
[2020-07-03] MEDS: Propranolol 60 MG Cap.ER PO SCH (08:16)
[2020-07-03] MEDS: Aspirin 81 MG Tab.EC PO SCH (08:16)
[2020-07-03] MEDS: Ferrous Gluconate 324 MG Tab PO SCH (08:16)
[2020-07-03] MEDS: Magnesium Oxide 400 MG Tab PO SCH (08:16)
[2020-07-03] MEDS: Losartan 50 MG Tab PO SCH (08:16)
[2020-07-03] MEDS: Lactobacillus Acidophilus/Lactobacillus Sporogenes (Probiotic) Tab PO SCH (08:16)
[2020-07-03] MEDS: Roflumilast 500 MCG Tab PO SCH (08:16)
[2020-07-03] MEDS: Ergocalciferol (Vitamin D2) 1.25 MG Cap PO SCH (08:16)
[2020-07-03] MEDS: DULoxetine 60 MG Cap PO SCH (08:16)
[2020-07-03] MEDS: Escitalopram 20 MG Tab PO SCH (08:17)
[2020-07-03] MEDS: Polyethylene Glycol 3350 Powder 17 GM Packet PO SCH ×2 (08:19→19:38)
[2020-07-03] MEDS: Enoxaparin 40 MG/0.4 ML Syringe SUBCUT SCH (09:49)
[2020-07-03] MEDS: traZODone 100 MG Tab PO SCH (18:11)
[2020-07-04] MEDS: Acetaminophen 500 MG Tab PO SCH ×4 (02:16→17:20)
[2020-07-04] MEDS: Cyclobenzaprine 10 MG Tab PO PRN (02:21)
[2020-07-04] MEDS: Divalproex Sodium Delayed-Release 125 MG Cap.Sprink PO SCH ×3 (06:03→19:16)
[2020-07-04] MEDS: Pantoprazole 40 MG Tab.CR PO SCH (06:03)
[2020-07-04] MEDS: Levothyroxine 75 MCG Tab PO SCH (06:03)
[2020-07-04] MEDS: oxyCODONE 5 MG Tab PO PRN ×2 (08:06→19:15)
[2020-07-04] MEDS: Escitalopram 20 MG Tab PO SCH (08:06)
[2020-07-04] MEDS: busPIRone 10 MG Tab PO SCH ×3 (08:12→17:20)
[2020-07-04] MEDS: Magnesium Oxide 400 MG Tab PO SCH (08:12)
[2020-07-04] MEDS: Losartan 50 MG Tab PO SCH (08:12)
[2020-07-04] MEDS: Ergocalciferol (Vitamin D2) 1.25 MG Cap PO SCH (08:12)
[2020-07-04] MEDS: DULoxetine 60 MG Cap PO SCH (08:12)
[2020-07-04] MEDS: Aspirin 81 MG Tab.EC PO SCH (08:13)
[2020-07-04] MEDS: Polyethylene Glycol 3350 Powder 17 GM Packet PO SCH ×2 (08:14→19:17)
[2020-07-04] MEDS: Propranolol 60 MG Cap.ER PO SCH (08:14)
[2020-07-04] MEDS: Ferrous Gluconate 324 MG Tab PO SCH (08:14)
[2020-07-04] MEDS: Roflumilast 500 MCG Tab PO SCH (08:14)
[2020-07-04] MEDS: Lactobacillus Acidophilus/Lactobacillus Sporogenes (Probiotic) Tab PO SCH (08:14)
[2020-07-04] MEDS: Tiotropium Inhaler 18 MCG Inhalation Powder Cap Kit of 5 INH SCH (08:50)
[2020-07-04] MEDS: Enoxaparin 40 MG/0.4 ML Syringe SUBCUT SCH (08:50)
[2020-07-04] MEDS: Formoterol/Mometasone 200-5 MCG 8.8 GM Inhaler IH SCH ×2 (08:50→17:31)
[2020-07-04] MEDS: traZODone 100 MG Tab PO SCH (17:21)
[2020-07-04] MEDS: Albuterol/Ipratropium 3.0-0.5 MG/3 ML Neb Soln NEB PRN (17:31)
[2020-07-05] MEDS: Acetaminophen 500 MG Tab PO SCH ×5 (00:05→17:22)
[2020-07-05] MEDS: Divalproex Sodium Delayed-Release 125 MG Cap.Sprink PO SCH ×3 (06:01→19:50)
[2020-07-05] MEDS: Levothyroxine 75 MCG Tab PO SCH (06:01)
[2020-07-05] MEDS: Pantoprazole 40 MG Tab.CR PO SCH (06:04)
[2020-07-05] MEDS: Escitalopram 20 MG Tab PO SCH (08:16)
[2020-07-05] MEDS: Magnesium Oxide 400 MG Tab PO SCH (08:16)
[2020-07-05] MEDS: Lactobacillus Acidophilus/Lactobacillus Sporogenes (Probiotic) Tab PO SCH (08:16)
[2020-07-05] MEDS: Ergocalciferol (Vitamin D2) 1.25 MG Cap PO SCH (08:16)
[2020-07-05] MEDS: Roflumilast 500 MCG Tab PO SCH (08:16)
[2020-07-05] MEDS: Aspirin 81 MG Tab.EC PO SCH (08:16)
[2020-07-05] MEDS: DULoxetine 60 MG Cap PO SCH (08:16)
[2020-07-05] MEDS: busPIRone 10 MG Tab PO SCH ×3 (08:17→17:20)
[2020-07-05] MEDS: Losartan 50 MG Tab PO SCH (08:17)
[2020-07-05] MEDS: Formoterol/Mometasone 200-5 MCG 8.8 GM Inhaler IH SCH ×2 (08:18→17:15)
[2020-07-05] MEDS: Enoxaparin 40 MG/0.4 ML Syringe SUBCUT SCH (08:18)
[2020-07-05] MEDS: Propranolol 60 MG Cap.ER PO SCH (08:18)
[2020-07-05] MEDS: Tiotropium Inhaler 18 MCG Inhalation Powder Cap Kit of 5 INH SCH (08:19)
[2020-07-05] MEDS: Polyethylene Glycol 3350 Powder 17 GM Packet PO SCH ×2 (08:20→19:51)
[2020-07-05] MEDS: oxyCODONE 5 MG Tab PO PRN ×2 (08:29→19:50)
[2020-07-05] MEDS: Ferrous Gluconate 324 MG Tab PO SCH (08:39)
[2020-07-05] MEDS: traZODone 100 MG Tab PO SCH (17:20)
[2020-07-06] MEDS: Acetaminophen 500 MG Tab PO SCH ×4 (01:14→17:58)
[2020-07-06] MEDS: Pantoprazole 40 MG Tab.CR PO SCH (06:25)
[2020-07-06] MEDS: Divalproex Sodium Delayed-Release 125 MG Cap.Sprink PO SCH ×4 (06:25→19:16)
[2020-07-06] MEDS: Levothyroxine 75 MCG Tab PO SCH (06:25)
[2020-07-06] MEDS: Enoxaparin 40 MG/0.4 ML Syringe SUBCUT SCH (07:30)
[2020-07-06] MEDS: Tiotropium Inhaler 18 MCG Inhalation Powder Cap Kit of 5 INH SCH (07:31)
[2020-07-06] MEDS: Ergocalciferol (Vitamin D2) 1.25 MG Cap PO SCH (07:31)
[2020-07-06] MEDS: Escitalopram 20 MG Tab PO SCH (07:31)
[2020-07-06] MEDS: DULoxetine 60 MG Cap PO SCH (07:32)
[2020-07-06] MEDS: Lactobacillus Acidophilus/Lactobacillus Sporogenes (Probiotic) Tab PO SCH (07:32)
[2020-07-06] MEDS: Ferrous Gluconate 324 MG Tab PO SCH (07:32)
[2020-07-06] MEDS: busPIRone 10 MG Tab PO SCH ×3 (07:32→16:48)
[2020-07-06] MEDS: Roflumilast 500 MCG Tab PO SCH (07:33)
[2020-07-06] MEDS: Propranolol 60 MG Cap.ER PO SCH (07:33)
[2020-07-06] MEDS: Magnesium Oxide 400 MG Tab PO SCH (07:33)
[2020-07-06] MEDS: Aspirin 81 MG Tab.EC PO SCH (07:33)
[2020-07-06] MEDS: oxyCODONE 5 MG Tab PO PRN ×2 (07:33→19:17)
[2020-07-06] MEDS: Losartan 50 MG Tab PO SCH (07:33)
[2020-07-06] MEDS: Formoterol/Mometasone 200-5 MCG 8.8 GM Inhaler IH SCH ×2 (07:35→16:49)
[2020-07-06] MEDS: Polyethylene Glycol 3350 Powder 17 GM Packet PO SCH ×2 (07:36→19:17)
[2020-07-06] MEDS: traZODone 100 MG Tab PO SCH (16:48)
[2020-07-06] MEDS: Cyclobenzaprine 10 MG Tab PO PRN (17:04)
[2020-07-07] MEDS: Acetaminophen 500 MG Tab PO SCH ×4 (00:47→18:30)
[2020-07-07] MEDS: Cyclobenzaprine 10 MG Tab PO PRN (05:27)
[2020-07-07] MEDS: Divalproex Sodium Delayed-Release 125 MG Cap.Sprink PO SCH ×3 (06:00→18:07)
[2020-07-07] MEDS: Pantoprazole 40 MG Tab.CR PO SCH (06:00)
[2020-07-07] MEDS: Levothyroxine 75 MCG Tab PO SCH (06:00)
[2020-07-07] MEDS: Enoxaparin 40 MG/0.4 ML Syringe SUBCUT SCH (07:46)
[2020-07-07] MEDS: Lactobacillus Acidophilus/Lactobacillus Sporogenes (Probiotic) Tab PO SCH (07:47)
[2020-07-07] MEDS: Tiotropium Inhaler 18 MCG Inhalation Powder Cap Kit of 5 INH SCH (07:47)
[2020-07-07] MEDS: Ergocalciferol (Vitamin D2) 1.25 MG Cap PO SCH (07:48)
[2020-07-07] MEDS: Aspirin 81 MG Tab.EC PO SCH (07:48)
[2020-07-07] MEDS: Magnesium Oxide 400 MG Tab PO SCH (07:48)
[2020-07-07] MEDS: Roflumilast 500 MCG Tab PO SCH (07:48)
[2020-07-07] MEDS: busPIRone 10 MG Tab PO SCH ×3 (07:48→18:07)
[2020-07-07] MEDS: Losartan 50 MG Tab PO SCH (07:48)
[2020-07-07] MEDS: Ferrous Gluconate 324 MG Tab PO SCH (07:48)
[2020-07-07] MEDS: Propranolol 60 MG Cap.ER PO SCH (07:48)
[2020-07-07] MEDS: oxyCODONE 5 MG Tab PO PRN ×2 (07:49→19:37)
[2020-07-07] MEDS: DULoxetine 60 MG Cap PO SCH (07:49)
[2020-07-07] MEDS: Formoterol/Mometasone 200-5 MCG 8.8 GM Inhaler IH SCH ×3 (07:50→18:30)
[2020-07-07] MEDS: Escitalopram 20 MG Tab PO SCH (07:53)
[2020-07-07] MEDS: Polyethylene Glycol 3350 Powder 17 GM Packet PO SCH ×2 (13:16→19:39)
[2020-07-07] MEDS: traZODone 100 MG Tab PO SCH (18:07)
[2020-07-08] MEDS: Acetaminophen 500 MG Tab PO SCH ×4 (00:32→17:15)
[2020-07-08] MEDS: Pantoprazole 40 MG Tab.CR PO SCH (07:33)
[2020-07-08] MEDS: Levothyroxine 75 MCG Tab PO SCH (07:33)
[2020-07-08] MEDS: Divalproex Sodium Delayed-Release 125 MG Cap.Sprink PO SCH ×3 (07:33→18:40)
[2020-07-08] MEDS: oxyCODONE 5 MG Tab PO PRN ×2 (07:50→18:40)
[2020-07-08] MEDS: Aspirin 81 MG Tab.EC PO SCH (08:13)
[2020-07-08] MEDS: DULoxetine 60 MG Cap PO SCH (08:13)
[2020-07-08] MEDS: Ferrous Gluconate 324 MG Tab PO SCH (08:13)
[2020-07-08] MEDS: Roflumilast 500 MCG Tab PO SCH (08:13)
[2020-07-08] MEDS: Lactobacillus Acidophilus/Lactobacillus Sporogenes (Probiotic) Tab PO SCH (08:13)
[2020-07-08] MEDS: Propranolol 60 MG Cap.ER PO SCH (08:13)
[2020-07-08] MEDS: Losartan 50 MG Tab PO SCH (08:14)
[2020-07-08] MEDS: Magnesium Oxide 400 MG Tab PO SCH (08:14)
[2020-07-08] MEDS: busPIRone 10 MG Tab PO SCH ×3 (08:14→17:19)
[2020-07-08] MEDS: Escitalopram 20 MG Tab PO SCH (08:14)
[2020-07-08] MEDS: Ergocalciferol (Vitamin D2) 1.25 MG Cap PO SCH (08:14)
[2020-07-08] MEDS: Trolamine Salicylate/Aloe Vera 10% Crm 85 GM Tube TOP PRN (08:23)
[2020-07-08] MEDS: Enoxaparin 40 MG/0.4 ML Syringe SUBCUT SCH (09:13)
[2020-07-08] MEDS: Formoterol/Mometasone 200-5 MCG 8.8 GM Inhaler IH SCH ×2 (09:13→17:42)
[2020-07-08] MEDS: Tiotropium Inhaler 18 MCG Inhalation Powder Cap Kit of 5 INH SCH (09:13)
[2020-07-08] MEDS: Polyethylene Glycol 3350 Powder 17 GM Packet PO SCH ×2 (10:17→19:19)
[2020-07-08] MEDS: Docusate Sodium 100 MG Cap PO SCH ×2 (10:51→19:18)
[2020-07-08] MEDS: traZODone 100 MG Tab PO SCH (17:19)
[2020-07-09] MEDS: Acetaminophen 500 MG Tab PO SCH ×3 (00:32→12:19)
[2020-07-09] MEDS: Levothyroxine 75 MCG Tab PO SCH (06:28)
[2020-07-09] MEDS: Divalproex Sodium Delayed-Release 125 MG Cap.Sprink PO SCH ×2 (06:29→12:19)
[2020-07-09] MEDS: Pantoprazole 40 MG Tab.CR PO SCH (06:29)
[2020-07-09] MEDS ORDERED: Sodium Phosphate,Monobasic/Sodium Phosphate,Dibasic Enema 133 ML Bottle RECTAL ONE (07:49)
[2020-07-09] MEDS: oxyCODONE 5 MG Tab PO PRN (08:13)
[2020-07-09] MEDS: Ferrous Gluconate 324 MG Tab PO SCH (08:14)
[2020-07-09] MEDS: Escitalopram 20 MG Tab PO SCH (08:14)
[2020-07-09] MEDS: busPIRone 10 MG Tab PO SCH ×2 (08:14→12:19)
[2020-07-09] MEDS: Propranolol 60 MG Cap.ER PO SCH (08:14)
[2020-07-09] MEDS: Magnesium Oxide 400 MG Tab PO SCH (08:14)
[2020-07-09] MEDS: Ergocalciferol (Vitamin D2) 1.25 MG Cap PO SCH (08:14)
[2020-07-09] MEDS: Roflumilast 500 MCG Tab PO SCH (08:14)
[2020-07-09] MEDS: Aspirin 81 MG Tab.EC PO SCH (08:14)
[2020-07-09] MEDS: Docusate Sodium 100 MG Cap PO SCH (08:14)
[2020-07-09] MEDS: DULoxetine 60 MG Cap PO SCH (08:15)
[2020-07-09] MEDS: Lactobacillus Acidophilus/Lactobacillus Sporogenes (Probiotic) Tab PO SCH (08:15)
[2020-07-09] MEDS: Losartan 50 MG Tab PO SCH (08:17)
[2020-07-09 08:37] VITALS: PULSE 70
[2020-07-09] MEDS: Tiotropium Inhaler 18 MCG Inhalation Powder Cap Kit of 5 INH SCH (09:07)
[2020-07-09] MEDS: Enoxaparin 40 MG/0.4 ML Syringe SUBCUT SCH (09:07)
[2020-07-09] MEDS: Formoterol/Mometasone 200-5 MCG 8.8 GM Inhaler IH SCH (09:07)
[2020-07-09 09:21] VITALS: BP 133/67
[2020-07-09] MEDS: Polyethylene Glycol 3350 Powder 17 GM Packet PO SCH (10:33)
--- NOTE | 2020-07-10 08:01 | PCM.PN ---
- General Info Date of Service: 07/08/20 Subjective Update: Patient notes good improvement. No concerns. Denies any discomfort or concerns. Patient notes her pain is under control. Patient notes her strength and transfers have improved. - Review of Systems General: Reports: Weakness HEENT: Reports: No Symptoms Pulmonary: Reports: No Symptoms Cardiovascular: Reports: No Symptoms Gastrointestinal: Reports: No Symptoms Genitourinary: Reports: No Symptoms Musculoskeletal: Reports: Leg Pain, Joint Pain Skin: Reports: No Symptoms Neurological: Reports: No Symptoms - Patient Data Vitals - Most Recent: Last Vital Signs Temp 36.7 C 07/09/20 08:31 Pulse 70 07/09/20 08:31 Resp 20 07/09/20 08:31 BP 133/67 07/09/20 08:31 Pulse Ox 96 07/09/20 08:31 Weight - Most Recent: 68.492 kg Med Orders - Current: Current Medications Discontinued Medications Acetaminophen (Acetaminophen 500 Mg Tab) 1,000 mg PO QID [facility] Last Admin: 06/19/20 19:10 Dose: 1,000 mg Documented by: Acetaminophen (Acetaminophen 500 Mg Tab) 1,000 mg PO Q6H [facility] Last Admin: 07/09/20 12:19 Dose: Not Given Documented by: Albuterol (Albuterol 8 Gm Inhaler) 8 gm INH Q4H PRN PRN Reason: Wheezing Albuterol/Ipratropium (Albuterol/Ipratropium 3.0-0.5 Mg/3 Ml Neb Soln) 3 ml INH Q6H [facility] Last Admin: 06/27/20 20:40 Dose: Not Given Documented by: Albuterol/Ipratropium (Albuterol/Ipratropium 3.0-0.5 Mg/3 Ml Neb Soln) 3 ml NEB Q6H PRN PRN Reason: Wheezing Last Admin: 07/04/20 17:31 Dose: 3 ml Documented by: Aspirin (Aspirin 81 Mg Tab.Ec) 81 mg PO DAILY [facility] Last Admin: 07/09/20 08:14 Dose: 81 mg Documented by: Buspirone HCl (Buspirone 15 Mg Tab) 15 mg PO TID@08,12,20 [facility] Last Admin: 06/19/20 13:15 Dose: 15 mg Documented by: Buspirone HCl (Buspirone 10 Mg Tab) Confirm Administered Dose 20 mg .ROUTE .STK- MED ONE Stop: 06/19/20 07:21 Last Admin: 06/19/20 07:49 Dose: Not Given Documented by: Buspirone HCl (Buspirone 10 Mg Tab) 15 mg PO TID@0800,1200,2000 [facility] Buspirone HCl (Buspirone 10 Mg Tab) Confirm Administered Dose 20 mg .ROUTE .STK- MED ONE Stop: 06/19/20 14:03 Last Admin: 06/19/20 14:41 Dose: Not Given Documented by: Buspirone HCl (Buspirone 10 Mg Tab) 15 mg PO TID@0800,1200,1700 [facility] Last Admin: 07/09/20 12:19 Dose: 15 mg Documented by: Cyanocobalamin (Cyanocobalamin (Vitamin B12) 1,000 Mcg/Ml Sd) 1,000 mcg IM ASDIRECTED [facility] Cyclobenzaprine HCl (Cyclobenzaprine 10 Mg Tab) 5 mg PO TID PRN PRN Reason: Muscle Spasm Last Admin: 07/07/20 05:27 Dose: 5 mg Documented by: Divalproex Sodium (Divalproex Sodium Delayed-Release 125 Mg Cap.Sprink) 125 mg PO TID [facility] Last Admin: 06/19/20 13:59 Dose: 125 mg Documented by: Divalproex Sodium (Divalproex Sodium Delayed-Release 125 Mg Cap.Sprink) 125 mg PO TID@0700,1300,1900 [facility] Last Admin: 07/09/20 12:19 Dose: 125 mg Documented by: Docusate Sodium (Docusate Sodium 100 Mg Cap) 200 mg PO BID [facility] Last Admin: 07/09/20 08:14 Dose: 200 mg Documented by: Duloxetine HCl (Duloxetine 60 Mg Cap) 120 mg PO DAILY [facility] Last Admin: 07/09/20 08:15 Dose: 120 mg Documented by: Enoxaparin Sodium (Enoxaparin 40 Mg/0.4 Ml Syringe) 40 mg SUBCUT DAILY [facility] Stop: 07/06/26 09:00 Last Admin: 07/09/20 09:07 Dose: 40 mg Documented by: Ergocalciferol (Ergocalciferol (Vitamin D2) 1.25 Mg Cap) 1.25 mg PO DAILY [facility] Last Admin: 07/09/20 08:14 Dose: 1.25 mg Documented by: Escitalopram Oxalate (Escitalopram 20 Mg Tab) 10 mg PO DAILY [facility] Last Admin: 07/09/20 08:14 Dose: 10 mg Documented by: Ferrous Gluconate (Ferrous Gluconate 324 Mg Tab) 324 mg PO DAILY [facility] Last Admin: 07/09/20 08:14 Dose: 324 mg Documented by: Lactobacillus Acidophilus (Lactobacillus Acidophilus/Lactobacillus Sporogenes (Probiotic) Tab) 1 tab PO DAILY [facility] Last Admin: 07/09/20 08:15 Dose: 1 tab Documented by: Levothyroxine Sodium (Levothyroxine 75 Mcg Tab) 75 mcg PO DAILY [facility] Last Admin: 06/20/20 06:08 Dose: 75 mcg Documented by: Levothyroxine Sodium (Levothyroxine 75 Mcg Tab) 75 mcg PO ACBREAKFAST [facility] Levothyroxine Sodium (Levothyroxine 75 Mcg Tab) 75 mcg PO ACBREAKFAST [facility] Last Admin: 07/09/20 06:28 Dose: 75 mcg Documented by: Losartan Potassium (Losartan 50 Mg Tab) 50 mg PO DAILY [facility] Last Admin: 07/09/20 08:17 Dose: 50 mg Documented by: Magnesium Hydroxide (Magnesium Hydroxide 400 Mg/5 Ml Susp 30 Ml Cup) 30 ml PO ONETIME ONE Stop: 06/23/20 08:01 Last Admin: 06/23/20 07:57 Dose: 30 ml Documented by: Magnesium Oxide (Magnesium Oxide 400 Mg Tab) 400 mg PO DAILY [facility] Last Admin: 07/09/20 08:14 Dose: 400 mg Documented by: Mometasone Furoate/Formoterol Fumar (Formoterol/Mometasone 200-5 Mcg 8.8 Gm Inhaler) 2 puff IH BID [facility] Last Admin: 06/19/20 07:53 Dose: 2 puff Documented by: Mometasone Furoate/Formoterol Fumar (Formoterol/Mometasone 200-5 Mcg 8.8 Gm Inhaler) 2 puff IH BID@0800,1700 [facility] Last Admin: 07/09/20 09:07 Dose: 2 puff Documented by: Mometasone Furoate/Formoterol Fumar (Formoterol/Mometasone 200-5 Mcg 8.8 Gm Inhaler) 2 puff IH ONETIME ONE Stop: 06/19/20 17:46 Last Admin: 06/19/20 18:21 Dose: 2 puff Documented by: Mometasone Furoate/Formoterol Fumar (Formoterol/Mometasone 200-5 Mcg 8.8 Gm Inhaler) 60 puff .ROUTE .STK-MED ONE Stop: 06/20/20 08:46 Ondansetron HCl (Ondansetron 4 Mg Tab.Dis) 4 mg PO QID PRN PRN Reason: NAUSEA Oxycodone HCl (Oxycodone 5 Mg Tab) 2.5 mg PO Q6H PRN PRN Reason: SEVERE PAIN (7-10) Stop: 06/22/20 23:59 Last Admin: 06/19/20 03:50 Dose: 2.5 mg Documented by: Oxycodone HCl (Oxycodone 5 Mg Tab) 5 mg PO TID PRN PRN Reason: Pain Last Admin: 06/28/20 08:05 Dose: 5 mg Documented by: Oxycodone HCl (Oxycodone 5 Mg Tab) 5 mg PO BID PRN PRN Reason: Pain Stop: 06/29/20 16:00 Last Admin: 06/29/20 17:13 Dose: 5 mg Documented by: Oxycodone HCl (Oxycodone 5 Mg Tab) 5 mg PO DAILY PRN PRN Reason: Pain Last Admin: 07/02/20 08:37 Dose: 5 mg Documented by: Oxycodone HCl (Oxycodone 5 Mg Tab) 5 mg PO BID PRN PRN Reason: Pain Last Admin: 07/09/20 08:13 Dose: 5 mg Documented by: Pantoprazole Sodium (Pantoprazole 40 Mg Tab.Cr) 40 mg PO DAILY [facility] Last Admin: 06/20/20 06:09 Dose: 40 mg Documented by: Pantoprazole Sodium (Pantoprazole 40 Mg Tab.Cr) 40 mg PO ACBREAKFAST [facility] Last Admin: 07/09/20 06:29 Dose: 40 mg Documented by: Polyethylene Glycol (Polyethylene Glycol 3350 Powder 17 Gm Packet) 17 gm PO BID [facility] Last Admin: 07/09/20 10:33 Dose: Not Given Documented by: Propranolol HCl (Propranolol 60 Mg Cap.Er) 60 mg PO DAILY [facility] Last Admin: 07/09/20 08:14 Dose: 60 mg Documented by: Roflumilast (Roflumilast 500 Mcg Tab) 500 mcg PO DAILY [facility] Last Admin: 07/09/20 08:14 Dose: 500 mcg Documented by: Senna/Docusate Sodium (Docusate Sodium/Sennosides 50-8.6 Mg Tab) 2 tab PO BID PRN PRN Reason: Constipation Last Admin: 07/07/20 19:37 Dose: 2 tab Documented by: Sodium Biphosphate/Sodium Phosphate (Sodium Phosphate,Monobasic/Sodium Phosphate,Dibasic Enema 133 Ml Bottle) 133 ml RECTAL ONETIME ONE Stop: 07/09/20 07:50 Last Admin: 07/09/20 09:08 Dose: 133 ml Documented by: Tiotropium [place] (Tiotropium Inhaler 18 Mcg Inhalation Powder Cap Kit Of 5) 18 mcg INH DAILY [facility] Last Admin: 07/09/20 09:07 Dose: 18 mcg Documented by: Tramadol HCl (Tramadol 50 Mg Tab) 50 mg PO Q6H PRN PRN Reason: Moderate Pain (4-6) Stop: 06/22/20 23:59 Last Admin: 06/19/20 06:08 Dose: 50 mg Documented by: Trazodone HCl (Trazodone 100 Mg Tab) 100 mg PO BEDTIME [facility] Last Admin: 06/18/20 19:40 Dose: 100 mg Documented by: Trazodone HCl (Trazodone 100 Mg Tab) 100 mg PO DAILY@1700 [facility] Last Admin: 07/08/20 17:19 Dose: 100 mg Documented by: Trolamine Salicylate (Trolamine Salicylate/Aloe Vera 10% Crm 85 Gm Tube) 1 gm TOP DAILY [facility] Trolamine Salicylate (Trolamine Salicylate/Aloe Vera 10% Crm 85 Gm Tube) 1 gm TOP DAILY PRN PRN Reason: Pain Last Admin: 07/08/20 08:23 Dose: 1 applic Documented by: Tuberculin PPD (Tuberculin, Ppd 5 Units/0.1 Ml 1 Ml Mdv) 5 unit IDERM ONETIME ONE Stop: 06/18/20 16:34 Last Admin: 06/19/20 18:25 Dose: 5 unit Documented by: - Exam General: Alert, Oriented, Cooperative HEENT: Pupils Equal, Pupils Reactive, EOMI Neck: Supple Lungs: Clear to Auscultation, Normal Respiratory Effort Cardiovascular: Regular Rate, Regular Rhythm GI/Abdominal Exam: Abnormal Bowel Sounds (decreased) Back Exam: Normal Inspection Extremities: Normal Inspection Skin: Other (wound of right hip healing very well) Neurological: No New Focal Deficit Psy/Mental Status: Alert, Normal Affect, Normal Mood Sepsis Event Note - Evaluation Sepsis Screening Result: No Definite Risk - Problem List & Annotations (1) Fracture of femoral neck, right SNOMED Code(s): 0825179, 32962154080153664 Code(s): S72.001A - FRACTURE OF UNSP PART OF NECK OF RIGHT FEMUR, INIT Status: Acute Qualifiers: Encounter type: sequela (2) Muscle weakness SNOMED Code(s): 32432786 Code(s): M62.81 - MUSCLE WEAKNESS (GENERALIZED) Status: Chronic Priority: Medium Onset Date: 07/08/15 (3) Post-op pain SNOMED Code(s): 131415258 Code(s): G89.18 - OTHER ACUTE POSTPROCEDURAL PAIN Status: Acute Priority: Medium - Problem List Review Problem List Initiated/Reviewed/Updated: Yes - Plan Plan:: Patient admitted for sub acute rehabilitation and management. Pain control as directed. 06/24/20 Patient to continue current rehabilitation and management. No changes to care or therapy. 07/01/20 Patient will need to continue current rehabilitation management and recommendations prior to discharge planning. She remains high risk for falls if she does not follow directions or able to be compliant with them. PT/OT to continue and f/u care plan tomorrow. 07/08/20 Patient stable. Continues to require PT/OT rehabilitation for strength, ambulation and transfers. We will continue PT/OT and consider other re habilitation/placement as needed. Pain controlled.
--- NOTE | 2020-07-10 08:03 | PCM.DCSUM1 ---
Discharge Summary - Discharge Data Discharge Date: 07/09/20 Discharge Disposition: DC/[facility] to [facility] Condition: Good - Referral to Home Health Primary Care Physician: PCP None - Discharge Diagnosis/Problem(s) (1) Fracture of femoral neck, right SNOMED Code(s): 7950981, [id number] ICD Code: S72.001A - FRACTURE OF UNSP PART OF NECK OF RIGHT FEMUR, INIT Status: Acute Qualifiers: Encounter type: sequela (2) Muscle weakness SNOMED Code(s): 61315021 ICD Code: M62.81 - MUSCLE WEAKNESS (GENERALIZED) Status: Chronic Priority: Medium Onset Date: 07/08/15 (3) Post-op pain SNOMED Code(s): 401593417 ICD Code: G89.18 - OTHER ACUTE POSTPROCEDURAL PAIN Status: Acute Priority: Medium - Patient Summary/Data Consults: Consultations 06/18/20 12:59 OT Evaluation and Treatment [CONS] Routine Please Evaluate and Treat. OT Reason for Consult: ADL's This query below is only for informational purposes and is not editable. PT Evaluation and Treatment [CONS] Routine Please Evaluate and Treat. PT Reason for Consult: Strengthening This query below is only for informational purposes and is not editable. - Patient Instructions Diet: Usual Diet as Tolerated - Discharge Plan *PRESCRIPTION DRUG MONITORING PROGRAM REVIEWED*: No *COPY OF PRESCRIPTION DRUG MONITORING REPORT IN PATIENT WARREN: No Home Medications: Home Meds Roflumilast [Daliresp] 500 mcg PO DAILY 12/26/15 [History] Escitalopram Oxalate [Lexapro] 10 mg PO BEDTIME 09/23/17 [History] Propranolol [Inderal LA] 60 mg PO DAILY 09/23/17 [History] traZODone 100 mg PO BEDTIME 09/23/17 [History] Cyanocobalamin (Vitamin B12) [Vitamin B12] 1,000 mcg IM ASDIRECTED 12/20/18 [History] busPIRone HCl [Buspirone HCl] 15 mg PO TID@,,12/20/18 [History] Pantoprazole Sodium [Protonix] 40 mg PO DAILY 03/03/19 [History] DULoxetine HCl [Cymbalta] 120 mg PO DAILY 03/30/20 [History] Divalproex Sodium 125 mg PO TID 03/30/20 [History] L. Acidophilus/Pectin, Twodot [Acidophilus Capsule] 1 cap PO DAILY 03/30/20 [History] Levothyroxine 75 mcg PO DAILY 03/30/20 [History] Olmesartan Medoxomil 30 mg PO DAILY 03/30/20 [History] Cyclobenzaprine [Flexeril] 5 mg PO TID PRN 04/29/20 [History] Acetaminophen [Tylenol Extra Strength] 500 mg PO Q6H 06/18/20 [History] Albuterol Sulfate [Proair Hfa] 1 puff INH Q4H PRN 06/18/20 [History] Albuterol/Ipratropium [DuoNeb 3.0-0.5 MG/3 ML] 1 vial INH Q6H 06/18/20 [History] Aspirin [Halfprin] 81 mg PO DAILY 06/18/20 [History] Budesonide/Formoterol [Symbicort 160-4.5 MCG] 1 puff INH BID 06/18/20 [History] Diclofenac Sodium [Voltaren 1% Gel] 1 applic TOP DAILY PRN 06/18/20 [History] Docusate Sodium/Sennosides [Senna Plus] 2 tab PO BID PRN 06/18/20 [History] Ergocalciferol (Vitamin D2) [Vitamin D2] 50,000 unit PO DAILY 06/18/20 [History] Ferrous Gluconate 324 mg PO DAILY 06/18/20 [History] Magnesium Oxide 400 mg PO DAILY 06/18/20 [History] Tiotropium [Spiriva HandiHaler] 1 puff INH DAILY 06/18/20 [History] ondansetron HCL [Zofran] 4 mg PO Q6H PRN 06/18/20 [History] Acidophilus/Lactobac Spor [Acidolphilus X-Strength] 1 tab PO DAILY tablet 07/09/20 [Rx] Albuterol/Ipratropium [DuoNeb 3.0-0.5 MG/3 ML] 3 ml NEB Q6H PRN neb 07/09/20 [Rx] Docusate Sodium [Colace] 200 mg PO BID cap 07/09/20 [Rx] Enoxaparin Sodium [Lovenox] 40 mg SQ DAILY #0 07/09/20 [Rx] Escitalopram [Lexapro] 10 mg PO DAILY tablet 07/09/20 [Rx] Ondansetron [Zofran ODT] 4 mg PO QID PRN tab.dis 07/09/20 [Rx] Trolamine Salicylate/Aloe Vera [Aspercreme 10%] 1 gm TOP DAILY PRN tube 07/09/20 [Rx] busPIRone [Buspar] 15 mg PO TID@0800,1200,1700 tablet 07/09/20 [Rx] oxyCODONE 0.5 tab PO BID #0 07/09/20 [Rx] oxyCODONE 5 mg PO BID PRN tablet 07/09/20 [Rx] polyethylene glycoL 3350 [MiraLAX] 17 gm PO BID packet 07/09/20 [Rx] - Discharge Summary/Plan Comment DC Time >30 min.: No Discharge Summary/Plan Comment: Discharged to LTC for further PT/OT and management/rehabilitation. Patient agrees with plan of care and eventual discharge home. No changes to plan of care. - Patient Data Vitals - Most Recent: Last Vital Signs Temp 36.7 C 07/09/20 08:31 Pulse 70 07/09/20 08:31 Resp 20 07/09/20 08:31 BP 133/67 07/09/20 08:31 Pulse Ox 96 07/09/20 08:31 Weight - Most Recent: 68.492 kg Med Orders - Current: Current Medications Discontinued Medications Acetaminophen (Acetaminophen 500 Mg Tab) 1,000 mg PO QID [facility] Last Admin: 06/19/20 19:10 Dose: 1,000 mg Documented by: Acetaminophen (Acetaminophen 500 Mg Tab) 1,000 mg PO Q6H [facility] Last Admin: 07/09/20 12:19 Dose: Not Given Documented by: Albuterol (Albuterol 8 Gm Inhaler) 8 gm INH Q4H PRN PRN Reason: Wheezing Albuterol/Ipratropium (Albuterol/Ipratropium 3.0-0.5 Mg/3 Ml Neb Soln) 3 ml INH Q6H [facility] Last Admin: 06/27/20 20:40 Dose: Not Given Documented by: Albuterol/Ipratropium (Albuterol/Ipratropium 3.0-0.5 Mg/3 Ml Neb Soln) 3 ml NEB Q6H PRN PRN Reason: Wheezing Last Admin: 07/04/20 17:31 Dose: 3 ml Documented by: Aspirin (Aspirin 81 Mg Tab.Ec) 81 mg PO DAILY [facility] Last Admin: 07/09/20 08:14 Dose: 81 mg Documented by: Buspirone HCl (Buspirone 15 Mg Tab) 15 mg PO TID@08,12,20 [facility] Last Admin: 06/19/20 13:15 Dose: 15 mg Documented by: Buspirone HCl (Buspirone 10 Mg Tab) Confirm Administered Dose 20 mg .ROUTE .STK- MED ONE Stop: 06/19/20 07:21 Last Admin: 06/19/20 07:49 Dose: Not Given Documented by: Buspirone HCl (Buspirone 10 Mg Tab) 15 mg PO TID@0800,1200,2000 [facility] Buspirone HCl (Buspirone 10 Mg Tab) Confirm Administered Dose 20 mg .ROUTE .STK- MED ONE Stop: 06/19/20 14:03 Last Admin: 06/19/20 14:41 Dose: Not Given Documented by: Buspirone HCl (Buspirone 10 Mg Tab) 15 mg PO TID@0800,1200,1700 [facility] Last Admin: 07/09/20 12:19 Dose: 15 mg Documented by: Cyanocobalamin (Cyanocobalamin (Vitamin B12) 1,000 Mcg/Ml Sdv) 1,000 mcg IM ASDIRECTED [facility] Cyclobenzaprine HCl (Cyclobenzaprine 10 Mg Tab) 5 mg PO TID PRN PRN Reason: Muscle Spasm Last Admin: 07/07/20 05:27 Dose: 5 mg Documented by: Divalproex Sodium (Divalproex Sodium Delayed-Release 125 Mg Cap.Sprink) 125 mg PO TID [facility] Last Admin: 06/19/20 13:59 Dose: 125 mg Documented by: Divalproex Sodium (Divalproex Sodium Delayed-Release 125 Mg Cap.Sprink) 125 mg PO TID@0700,1300,1900 [facility] Last Admin: 07/09/20 12:19 Dose: 125 mg Documented by: Docusate Sodium (Docusate Sodium 100 Mg Cap) 200 mg PO BID [facility] Last Admin: 07/09/20 08:14 Dose: 200 mg Documented by: Duloxetine HCl (Duloxetine 60 Mg Cap) 120 mg PO DAILY [facility] Last Admin: 07/09/20 08:15 Dose: 120 mg Documented by: Enoxaparin Sodium (Enoxaparin 40 Mg/0.4 Ml Syringe) 40 mg SUBCUT DAILY [facility] Stop: 07/06/26 09:00 Last Admin: 07/09/20 09:07 Dose: 40 mg Documented by: Ergocalciferol (Ergocalciferol (Vitamin D2) 1.25 Mg Cap) 1.25 mg PO DAILY [facility] Last Admin: 07/09/20 08:14 Dose: 1.25 mg Documented by: Escitalopram Oxalate (Escitalopram 20 Mg Tab) 10 mg PO DAILY [facility] Last Admin: 07/09/20 08:14 Dose: 10 mg Documented by: Ferrous Gluconate (Ferrous Gluconate 324 Mg Tab) 324 mg PO DAILY [facility] Last Admin: 07/09/20 08:14 Dose: 324 mg Documented by: Lactobacillus Acidophilus (Lactobacillus Acidophilus/Lactobacillus Sporogenes (Probiotic) Tab) 1 tab PO DAILY [facility] Last Admin: 07/09/20 08:15 Dose: 1 tab Documented by: Levothyroxine Sodium (Levothyroxine 75 Mcg Tab) 75 mcg PO DAILY [facility] Last Admin: 06/20/20 06:08 Dose: 75 mcg Documented by: Levothyroxine Sodium (Levothyroxine 75 Mcg Tab) 75 mcg PO ACBREAKFAST [facility] Levothyroxine Sodium (Levothyroxine 75 Mcg Tab) 75 mcg PO ACBREAKFAST [facility] Last Admin: 07/09/20 06:28 Dose: 75 mcg Documented by: Losartan Potassium (Losartan 50 Mg Tab) 50 mg PO DAILY [facility] Last Admin: 07/09/20 08:17 Dose: 50 mg Documented by: Magnesium Hydroxide (Magnesium Hydroxide 400 Mg/5 Ml Susp 30 Ml Cup) 30 ml PO ONETIME ONE Stop: 06/23/20 08:01 Last Admin: 06/23/20 07:57 Dose: 30 ml Documented by: Magnesium Oxide (Magnesium Oxide 400 Mg Tab) 400 mg PO DAILY [facility] Last Admin: 07/09/20 08:14 Dose: 400 mg Documented by: Mometasone Furoate/Formoterol Fumar (Formoterol/Mometasone 200-5 Mcg 8.8 Gm Inhaler) 2 puff IH BID [facility] Last Admin: 06/19/20 07:53 Dose: 2 puff Documented by: Mometasone Furoate/Formoterol Fumar (Formoterol/Mometasone 200-5 Mcg 8.8 Gm Inhaler) 2 puff IH BID@0800,1700 [facility] Last Admin: 07/09/20 09:07 Dose: 2 puff Documented by: Mometasone Furoate/Formoterol Fumar (Formoterol/Mometasone 200-5 Mcg 8.8 Gm Inhaler) 2 puff IH ONETIME ONE Stop: 06/19/20 17:46 Last Admin: 06/19/20 18:21 Dose: 2 puff Documented by: Mometasone Furoate/Formoterol Fumar (Formoterol/Mometasone 200-5 Mcg 8.8 Gm Inhaler) 60 puff .ROUTE .STK-MED ONE Stop: 06/20/20 08:46 Ondansetron HCl (Ondansetron 4 Mg Tab.Dis) 4 mg PO QID PRN PRN Reason: NAUSEA Oxycodone HCl (Oxycodone 5 Mg Tab) 2.5 mg PO Q6H PRN PRN Reason: SEVERE PAIN (7-10) Stop: 06/22/20 23:59 Last Admin: 06/19/20 03:50 Dose: 2.5 mg Documented by: Oxycodone HCl (Oxycodone 5 Mg Tab) 5 mg PO TID PRN PRN Reason: Pain Last Admin: 06/28/20 08:05 Dose: 5 mg Documented by: Oxycodone HCl (Oxycodone 5 Mg Tab) 5 mg PO BID PRN PRN Reason: Pain Stop: 06/29/20 16:00 Last Admin: 06/29/20 17:13 Dose: 5 mg Documented by: Oxycodone HCl (Oxycodone 5 Mg Tab) 5 mg PO DAILY PRN PRN Reason: Pain Last Admin: 07/02/20 08:37 Dose: 5 mg Documented by: Oxycodone HCl (Oxycodone 5 Mg Tab) 5 mg PO BID PRN PRN Reason: Pain Last Admin: 07/09/20 08:13 Dose: 5 mg Documented by: Pantoprazole Sodium (Pantoprazole 40 Mg Tab.Cr) 40 mg PO DAILY [facility] Last Admin: 06/20/20 06:09 Dose: 40 mg Documented by: Pantoprazole Sodium (Pantoprazole 40 Mg Tab.Cr) 40 mg PO ACBREAKFAST [facility] Last Admin: 07/09/20 06:29 Dose: 40 mg Documented by: Polyethylene Glycol (Polyethylene Glycol 3350 Powder 17 Gm Packet) 17 gm PO BID [facility] Last Admin: 07/09/20 10:33 Dose: Not Given Documented by: Propranolol HCl (Propranolol 60 Mg Cap.Er) 60 mg PO DAILY [facility] Last Admin: 07/09/20 08:14 Dose: 60 mg Documented by: Roflumilast (Roflumilast 500 Mcg Tab) 500 mcg PO DAILY [facility] Last Admin: 07/09/20 08:14 Dose: 500 mcg Documented by: Senna/Docusate Sodium (Docusate Sodium/Sennosides 50-8.6 Mg Tab) 2 tab PO BID PRN PRN Reason: Constipation Last Admin: 07/07/20 19:37 Dose: 2 tab Documented by: Sodium Biphosphate/Sodium Phosphate (Sodium Phosphate,Monobasic/Sodium Phosphate,Dibasic Enema 133 Ml Bottle) 133 ml RECTAL ONETIME ONE Stop: 07/09/20 07:50 Last Admin: 07/09/20 09:08 Dose: 133 ml Documented by: Tiotropium Oberon (Tiotropium Inhaler 18 Mcg Inhalation Powder Cap Kit Of 5) 18 mcg INH DAILY [facility] Last Admin: 07/09/20 09:07 Dose: 18 mcg Documented by: Tramadol HCl (Tramadol 50 Mg Tab) 50 mg PO Q6H PRN PRN Reason: Moderate Pain (4-6) Stop: 06/22/20 23:59 Last Admin: 06/19/20 06:08 Dose: 50 mg Documented by: Trazodone HCl (Trazodone 100 Mg Tab) 100 mg PO BEDTIME [facility] Last Admin: 06/18/20 19:40 Dose: 100 mg Documented by: Trazodone HCl (Trazodone 100 Mg Tab) 100 mg PO DAILY@1700 [facility] Last Admin: 07/08/20 17:19 Dose: 100 mg Documented by: Trolamine Salicylate (Trolamine Salicylate/Aloe Vera 10% Crm 85 Gm Tube) 1 gm TOP DAILY [facility] Trolamine Salicylate (Trolamine Salicylate/Aloe Vera 10% Crm 85 Gm Tube) 1 gm TOP DAILY PRN PRN Reason: Pain Last Admin: 07/08/20 08:23 Dose: 1 applic Documented by: Tuberculin PPD (Tuberculin, Ppd 5 Units/0.1 Ml 1 Ml Mdv) 5 unit IDERM ONETIME ONE Stop: 06/18/20 16:34 Last Admin: 06/19/20 18:25 Dose: 5 unit Documented by:
[2020-07-16] MEDS ORDERED: Cyanocobalamin (Vitamin B12) 1,000 MCG/ML SDV IM SCH (13:00)
== END 2020-07-09 13:44 | DRG 556 ==
LOC: LB.MS 11:42 → UNDOADMIN 11:42 → LB.MS 14:40
PROVIDERS: ADMIT Family Medicine; ATTEND Family Medicine
DX: M62.81 Muscle weakness (generalized) (principal); S72.001S Fracture of unspecified part of neck of right femur, sequela; G89.18 Other acute postprocedural pain; H54.7 Unspecified visual loss; H91.90 Unspecified hearing loss, unspecified ear; I10 Essential (primary) hypertension; J44.9 Chronic obstructive pulmonary disease, unspecified; K21.9 Gastro-esophageal reflux disease without esophagitis; K52.9 Noninfective gastroenteritis and colitis, unspecified; Z20.822 Contact with and (suspected) exposure to COVID-19; M79.7 Fibromyalgia; M19.90 Unspecified osteoarthritis, unspecified site; E03.9 Hypothyroidism, unspecified; E53.8 Deficiency of other specified B group vitamins; Z91.09 Other allergy status, other than to drugs and biological substances; Z88.0 Allergy status to penicillin; Z91.041 Radiographic dye allergy status; Z88.1 Allergy status to other antibiotic agents; Z88.2 Allergy status to sulfonamides; Z79.890 Hormone replacement therapy; Z79.899 Other long term (current) drug therapy; Z90.49 Acquired absence of other specified parts of digestive tract; Z85.43 Personal history of malignant neoplasm of ovary; Z87.891 Personal history of nicotine dependence
CPT/HCPCS: 36415; 82607; 84443; 86580; 97110-GP; 97161-GP; 97165-GO; 97530-GO; 97530-GP; 97535-GO; A9270-GY; J1650; J7620-GY; U0002

== ENCOUNTER 2020-09-19 13:11 | Emergency (ER) | payer MEDICARE, MEDICAID ==
--- NOTE | 2020-09-19 14:24 | CT ---
DATE OF SERVICE: 09/19/20 CLINICAL DATA: FALL Unenhanced brain CT: The multi slice acquisition through the brain without IV contrast was performed. Comparison is made to a prior exam dated 29 April 2020. There is diffuse cerebral atrophy. There are periventricular lucencies bilaterally consistent with small vessel ischemic change. No masses or mass effect. No intracranial hemorrhage. No evidence of acute or subacute infarct. No fractures. Impression: No acute intracranial abnormalities. MTDD
--- NOTE | 2020-09-19 15:55 | EDM.PDOC ---
ED HPI GENERAL MEDICAL PROBLEM - General Chief Complaint: Head Injury Stated Complaint: FALL Time Seen by Provider: 09/19/20 15:20 Source of Information: Reports: Patient History Limitations: Reports: No Limitations - History of Present Illness INITIAL COMMENTS - FREE TEXT/NARRATIVE: patient from the [facility] - presented to the ER for evaluation after a fall and head injury. She uses a walker and reports that she tripped on her foot and landed on the floor - hitting the back of her head and her right side. No LOC, no headache or nausea. Reports slight discomfort of the right shoulder and left thumb. Denies vision problem, dizziness, CP or palpitations. Not on blood thinners. She is on chronic pain meds - oxycodone for chronic pain -- and is asking for an extra tablet to control her pain. - Related Data Allergies Allergy/AdvReac Type Severity Reaction Status Date / Time adhesive Allergy Rash Verified 09/19/20 17:42 milnacipran [From Savella] Allergy Cannot Verified 09/19/20 17:42 Remember nicotine [From Nicoderm CQ] Allergy Itching Verified 09/19/20 17:42 Penicillins Allergy Anaphylactic Verified 09/19/20 17:42 Shock tetracycline Allergy Cannot Verified 09/19/20 17:42 Remember yellow dye Allergy Cannot Verified 09/19/20 17:42 Remember diflunisal [From Dolobid] AdvReac Nausea Verified 09/19/20 17:42 gabapentin AdvReac Depression Verified 09/19/20 17:42 ketoprofen AdvReac Nausea Verified 09/19/20 17:42 lisinopril AdvReac Cannot Verified 09/19/20 17:42 Remember pregabalin [From Lyrica] AdvReac Cannot Verified 09/19/20 17:42 Remember Sulfa (Sulfonamide AdvReac Cannot Verified 09/19/20 17:42 Antibiotics) Remember Home Meds: Home Meds Roflumilast [Daliresp] 500 mcg PO DAILY 12/26/15 [History] Propranolol [Inderal LA] 60 mg PO DAILY 09/23/17 [History] traZODone 100 mg PO BEDTIME 09/23/17 [History] Cyanocobalamin (Vitamin B12) [Vitamin B12] 1,000 mcg IM ASDIRECTED 12/20/18 [History] Pantoprazole Sodium [Protonix] 40 mg PO DAILY 03/03/19 [History] DULoxetine HCl [Cymbalta] 60 mg PO DAILY 03/30/20 [History] Divalproex Sodium 125 mg PO TID 03/30/20 [History] Levothyroxine 75 mcg PO DAILY 03/30/20 [History] Cyclobenzaprine [Flexeril] 5 mg PO TID PRN 04/29/20 [History] Acetaminophen [Tylenol Extra Strength] 1,000 mg PO Q6H 06/18/20 [History] Albuterol Sulfate [Proair Hfa] 1 puff INH Q4H PRN 06/18/20 [History] Albuterol/Ipratropium [DuoNeb 3.0-0.5 MG/3 ML] 1 vial INH Q6H 06/18/20 [History] Aspirin [Halfprin] 81 mg PO DAILY 06/18/20 [History] Budesonide/Formoterol [Symbicort 160-4.5 MCG] 1 puff INH BID 06/18/20 [History] Magnesium Oxide 400 mg PO DAILY 06/18/20 [History] Tiotropium [Spiriva HandiHaler] 1 puff INH DAILY 06/18/20 [History] ondansetron HCL [Zofran] 4 mg PO Q6H PRN 06/18/20 [History] Trolamine Salicylate/Aloe Vera [Aspercreme 10%] 1 gm TOP DAILY PRN tube 07/09/20 [Rx] busPIRone [Buspar] 15 mg PO TID@0800,1200,1700 tablet 07/09/20 [Rx] oxyCODONE 5 mg PO BID PRN tablet 07/09/20 [Rx] polyethylene glycoL 3350 [MiraLAX] 17 gm PO BID packet 07/09/20 [Rx] Docusate Sodium [Colace] 100 mg PO BID 09/19/20 [History] Escitalopram [Lexapro] 20 mg PO DAILY 09/19/20 [History] Losartan Potassium 75 mg PO DAILY 09/19/20 [History] Sennosides/Docusate Sodium [Senna-Docusate Sodium Tablet] 2 each PO BID PRN 09/19/20 [History] Past Medical History HEENT History: Reports: Hard of Hearing, Impaired Vision, Other (See Below) Other HEENT History: dentures Cardiovascular History: Reports: Hypertension Respiratory History: Reports: COPD Gastrointestinal History: Reports: Cholelithiasis, Chronic Diarrhea, GERD Genitourinary History: Reports: UTI, Recurrent 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: Musculoskeletal History: Reports: Fibromyalgia, Osteoarthritis Psychiatric History: Reports: Anxiety, Depression, Emotional Problems, Panic Attack, Psych Hospitalization(s), PTSD, Suicide Attempt, Suicidal Ideation Endocrine/Metabolic History: Reports: Hypothyroidism Hematologic History: Reports: B12 Deficiency Oncologic (Cancer) History: Reports: Lung, Ovarian Dermatologic History: Reports: Eczema - Infectious Disease History Infectious Disease History: Reports: Chicken Pox, Measles, Mumps - Past Surgical History HEENT Surgical History: Reports: None Cardiovascular Surgical History: Reports: None Respiratory Surgical History: Reports: Lung Resection, Other (See Below) Other Respiratory Surgeries/Procedures: Left Upper Lobectomy GI Surgical History: Reports: Cholecystectomy Female Surgical History: Reports: Other (See Below) Other Female Surgeries/Procedures: Ovarian Ca Endocrine Surgical History: Reports: None Musculoskeletal Surgical History: Reports: None Oncologic Surgical History: Reports: Lobectomy Dermatological Surgical History: Reports: None Social & Family History - Family History Family Medical History: No Pertinent Family History Respiratory: Reports: COPD - Caffeine Use Caffeine Use: Reports: Coffee ED ROS GENERAL - Review of Systems Review Of Systems: See Below Constitutional: Reports: No Symptoms HEENT: Reports: No Symptoms Respiratory: Reports: No Symptoms Cardiovascular: Reports: No Symptoms GI/Abdominal: Reports: No Symptoms Musculoskeletal: Reports: Shoulder Pain, Back Pain Skin: Reports: No Symptoms Neurological: Reports: No Symptoms Psychiatric: Reports: No Symptoms ED EXAM, HEAD INJURY - Physical Exam Exam: See Below Exam Limited By: No Limitations General Appearance: Alert, WD/WN, No Apparent Distress Head: Atraumatic, Normocephalic, Facial Ecchymosis Eyes: Bilateral Eye: EOMI, PERRL Respiratory: No Respiratory Distress, Lungs Clear Cardiovascular: Normal Peripheral Pulses, Regular Rate, Rhythm GI/Abdominal Exam: Normal Bowel Sounds, Soft, Non-Tender Back Exam: Normal Inspection, Full Range of Motion Extremities: Normal Inspection, Normal Range of Motion, Other (mild TTP over the left thumb) Neurologic: No Motor/Sensory Deficits, Alert, Oriented x 3, Other (GCS 15) - Voss Coma Score Best Eye Response (Voss): (4) Open Spontaneously Best Verbal Response (Voss): (5) Oriented Best Motor Response (Voss): (6) Obeys Commands Voss Total: 15 Course - Vital Signs Last Recorded V/S: Last Vital Signs Temp 36.8 C 09/19/20 17:25 Pulse 68 09/19/20 17:25 Resp 16 09/19/20 17:25 BP 119/55 L 09/19/20 17:25 Pulse Ox 96 09/19/20 17:25 - Orders/Labs/Meds Meds: Medications Discontinued Medications Generic Name Dose Route Start Last Admin Trade Name Mitch PRN Reason Stop Dose Admin Oxycodone HCl 5 mg 09/19/20 15:54 09/19/20 16:01 Oxycodone 5 Mg Tab PO 09/19/20 15:55 5 mg ONETIME ONE Administration Oxycodone HCl Confirm 09/19/20 15:58 09/19/20 16:52 Oxycodone 5 Mg Tab Administered 09/19/20 15:59 Not Given Dose 5 mg .ROUTE .STK-MED ONE - Re-Assessments/Exams Free Text/Narrative Re-Assessment/Exam: CT head - WNL Xrays R shoulder and hip - no acute pathology or findings,, but chronic osteoarthritic changes and e/o previous hip replacement surgery. xray left thumb - possible avulsion fracture. pain was controlled with 1 tab oxycodone left thumb was placed in a prefabricated splint for comfort Departure - Departure Time of Disposition: 17:00 Disposition: Home, Self-Care 01 Clinical Impression: Contusion of hip, right Qualifiers: Encounter type: initial encounter Qualified Code(s): S70.01XA - Contusion of right hip, initial encounter Fracture of thumb, left, closed Qualifiers: Encounter type: initial encounter Phalanx: proximal Fracture alignment: nondisplaced Qualified Code(s): S62.515A - Nondisplaced fracture of proximal phalanx of left thumb, initial encounter for closed fracture - Discharge Information *PRESCRIPTION DRUG MONITORING PROGRAM REVIEWED*: Not Applicable *COPY OF PRESCRIPTION DRUG MONITORING REPORT IN PATIENT WARREN: Not Applicable Instructions: Hip Sprain, Finger Fracture, Adult, [id number], Head Injury, Adult, [id number] Referrals: PCP,None [Primary Care Provider] - Forms: ED Department Discharge Additional Instructions: - ice the affected area - keep finger in a splint for at least a week - take Tylenol for pain as needed - resume rest of home meds as before - Problem List & Annotations (1) Fall SNOMED Code(s): 4690135, 399045496 Code(s): W19.XXXA - UNSPECIFIED FALL, INITIAL ENCOUNTER Status: Acute Priority: Low Qualifiers: Encounter type: initial encounter Qualified Code(s): W19.XXXA - Unspecified fall, initial encounter (2) Contusion of shoulder, right SNOMED Code(s): 92234533 Code(s): S40.011A - CONTUSION OF RIGHT SHOULDER, INITIAL ENCOUNTER Status: Acute Priority: Low Qualifiers: Encounter type: initial encounter Qualified Code(s): S40.011A - Contusion of right shoulder, initial encounter (3) Injury of left thumb SNOMED Code(s): 392816297 Code(s): S69.92XA - UNSP INJURY OF LEFT WRIST, HAND AND FINGER(S), INIT ENCNTR Status: Acute Priority: Low Qualifiers: Encounter type: initial encounter Qualified Code(s): S69.92XA - Unspecified injury of left wrist, hand and finger(s), initial encounter - Problem List Review Problem List Initiated/Reviewed/Updated: Yes - Assessment/Plan Plan: - take pain medications as prescribed - leave the finger splint on for at least a week - return to the ER if any concerns
[2020-09-19] MEDS: oxyCODONE 5 MG Tab PO ONE (16:01)
--- NOTE | 2020-09-19 16:25 | CR ---
DATE OF SERVICE: 09/19/2020 CLINICAL DATA: [facility] . PELVIS AND RIGHT HIP: Comparison is made to a prior exam dated 08/26/2020. The patient is status post right total hip arthroplasty. The prosthesis appears intact. There are mild osteoarthritic changes of the left hip joint. No changes from the prior exam. No acute abnormalities. [id number] [facility]
--- NOTE | 2020-09-19 16:29 | CR ---
DATE OF SERVICE: 09/19/2020 CLINICAL DATA: [facility]. RIGHT SHOULDER: No priors. There is diffuse osteopenia. There are osteoarthritic changes of the AC and glenohumeral joints. No acute abnormalities. No focal lytic or blastic bone lesions. [id number] MTDD
[2020-09-19] MEDS: oxyCODONE 5 MG Tab ONE (16:52)
[2020-09-19 17:26] VITALS: BP 119/55; PULSE 68
--- NOTE | 2020-09-20 09:40 | CR ---
DATE OF SERVICE: 09/19/20 CLINICAL DATA: Fell/bruise. LEFT THUMB: No priors. There is diffuse osteopenia. There are osteoarthritic changes involving the IP and MP joints. There are severe osteoarthritic changes involving the carpometacarpal joint of the thumb. The base of the 1st metacarpal is subluxed laterally with respect to the greater multangular carpal bone. There are multiple small osseous densities adjacent to the base of the distal phalanx consistent with small bony avulsions or loose body, age indeterminate. No other significant findings. [id number] [facility]
== END 2020-09-19 16:45 | disposition home or self-care (01) ==
LOC: LB.ED 13:11
DX: S62.515A Nondisplaced fracture of proximal phalanx of left thumb, initial encounter for closed fracture (principal); S70.01XA Contusion of right hip, initial encounter; I10 Essential (primary) hypertension; E03.9 Hypothyroidism, unspecified; Z79.82 Long term (current) use of aspirin; Z79.899 Other long term (current) drug therapy; Z88.0 Allergy status to penicillin; Z88.1 Allergy status to other antibiotic agents; Z91.048 Other nonmedicinal substance allergy status; Z88.8 Allergy status to other drugs, medicaments and biological substances; Z88.2 Allergy status to sulfonamides; Z88.5 Allergy status to narcotic agent; Z91.09 Other allergy status, other than to drugs and biological substances; W01.0XXA Fall on same level from slipping, tripping and stumbling without subsequent striking against object, initial encounter
CPT/HCPCS: 70450; 73030-RT; 73140-FA; 73521; 99284-25; A9270-GY

== ENCOUNTER 2020-12-08 19:18 | Emergency (ER) | payer MEDICARE, MEDICAID ==
--- NOTE | 2020-12-08 20:08 | EDM.PDOC ---
ED HPI GENERAL MEDICAL PROBLEM - General Chief Complaint: Neuro Symptoms/Deficits Stated Complaint: FELL AND HIT HEAD Time Seen by Provider: 12/08/20 19:45 Source of Information: Reports: Patient History Limitations: Reports: No Limitations - History of Present Illness INITIAL COMMENTS - FREE TEXT/NARRATIVE: patient from [facility] - was brought to the ER for evaluation after a fall. She reports that 3 hrs ago, she fell from a standing position - didn't hit her head - but has been feeling a little shaky since then. The [facility] staff noticed that she is not quit herself so decided to send her to the ER for a checkup. Patient denies a head injury - denies weakness or numbness . No vision or speech problems. She reports a long history of bad knees and multiple falls in the past. She uses a walker and usually falls at least once per month. Patient denies any symptoms at the moment and she is alert and oriented. Onset: Sudden Duration: Hour(s): (3) Location: Reports: Generalized - Related Data Allergies Allergy/AdvReac Type Severity Reaction Status Date / Time adhesive Allergy Rash Verified 09/19/20 17:42 milnacipran [From Savella] Allergy Cannot Verified 09/19/20 17:42 Remember nicotine [From Nicoderm CQ] Allergy Itching Verified 09/19/20 17:42 Penicillins Allergy Anaphylactic Verified 09/19/20 17:42 Shock tetracycline Allergy Cannot Verified 09/19/20 17:42 Remember yellow dye Allergy Cannot Verified 09/19/20 17:42 Remember diflunisal [From Dolobid] AdvReac Nausea Verified 09/19/20 17:42 gabapentin AdvReac Depression Verified 09/19/20 17:42 ketoprofen AdvReac Nausea Verified 09/19/20 17:42 lisinopril AdvReac Cannot Verified 09/19/20 17:42 Remember pregabalin [From Lyrica] AdvReac Cannot Verified 09/19/20 17:42 Remember Sulfa (Sulfonamide AdvReac Cannot Verified 09/19/20 17:42 Antibiotics) Remember Home Meds: Home Meds Roflumilast [Daliresp] 500 mcg PO DAILY 12/26/15 [History] Propranolol [Inderal LA] 60 mg PO DAILY 09/23/17 [History] traZODone 100 mg PO BEDTIME 05/31/18 [History] Cyanocobalamin (Vitamin B12) [Vitamin B12] 1,000 mcg IM ASDIRECTED 12/20/18 [History] Pantoprazole Sodium [Protonix] 40 mg PO DAILY 03/03/19 [History] DULoxetine HCl [Cymbalta] 60 mg PO DAILY 03/30/20 [History] Divalproex Sodium 125 mg PO TID 03/30/20 [History] Levothyroxine 75 mcg PO DAILY 03/30/20 [History] Cyclobenzaprine [Flexeril] 5 mg PO TID PRN 04/29/20 [History] Acetaminophen [Tylenol Extra Strength] 1,000 mg PO Q6H 06/18/20 [History] Albuterol Sulfate [Proair Hfa] 1 puff INH Q4H PRN 06/18/20 [History] Albuterol/Ipratropium [DuoNeb 3.0-0.5 MG/3 ML] 1 vial INH Q6H 06/18/20 [History] Aspirin [Halfprin] 81 mg PO DAILY 06/18/20 [History] Budesonide/Formoterol [Symbicort 160-4.5 MCG] 1 puff INH BID 06/18/20 [History] Magnesium Oxide 400 mg PO DAILY 06/18/20 [History] Tiotropium [Spiriva HandiHaler] 1 puff INH DAILY 06/18/20 [History] ondansetron HCL [Zofran] 4 mg PO Q6H PRN 06/18/20 [History] Trolamine Salicylate/Aloe Vera [Aspercreme 10%] 1 gm TOP DAILY PRN tube 07/09/20 [Rx] busPIRone [Buspar] 15 mg PO TID@0800,1200,1700 tablet 07/09/20 [Rx] oxyCODONE 5 mg PO BID PRN tablet 07/09/20 [Rx] polyethylene glycoL 3350 [MiraLAX] 17 gm PO BID packet 07/09/20 [Rx] Docusate Sodium [Colace] 100 mg PO BID 09/19/20 [History] Escitalopram [Lexapro] 20 mg PO DAILY 09/19/20 [History] Losartan Potassium 75 mg PO DAILY 09/19/20 [History] Sennosides/Docusate Sodium [Senna-Docusate Sodium Tablet] 2 each PO BID PRN 09/19/20 [History] Past Medical History HEENT History: Reports: Hard of Hearing, Impaired Vision, Other (See Below) Other HEENT History: dentures Cardiovascular History: Reports: Hypertension Respiratory History: Reports: COPD Gastrointestinal History: Reports: Cholelithiasis, Chronic Diarrhea, GERD Genitourinary History: Reports: UTI, Recurrent 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: Musculoskeletal History: Reports: Fibromyalgia, Osteoarthritis Psychiatric History: Reports: Anxiety, Depression, Emotional Problems, Panic Attack, Psych Hospitalization(s), PTSD, Suicide Attempt, Suicidal Ideation Endocrine/Metabolic History: Reports: Hypothyroidism Hematologic History: Reports: B12 Deficiency Oncologic (Cancer) History: Reports: Lung, Ovarian Dermatologic History: Reports: Eczema - Infectious Disease History Infectious Disease History: Reports: Chicken Pox, Measles, Mumps - Past Surgical History HEENT Surgical History: Reports: None Cardiovascular Surgical History: Reports: None Respiratory Surgical History: Reports: Lung Resection, Other (See Below) Other Respiratory Surgeries/Procedures: Left Upper Lobectomy GI Surgical History: Reports: Cholecystectomy Female Surgical History: Reports: Other (See Below) Other Female Surgeries/Procedures: Ovarian Ca Endocrine Surgical History: Reports: None Musculoskeletal Surgical History: Reports: None Oncologic Surgical History: Reports: Lobectomy Dermatological Surgical History: Reports: None Social & Family History - Family History Family Medical History: No Pertinent Family History Respiratory: Reports: COPD - Caffeine Use Caffeine Use: Reports: Coffee ED ROS GENERAL - Review of Systems Review Of Systems: See Below Constitutional: Reports: No Symptoms HEENT: Reports: No Symptoms Respiratory: Reports: No Symptoms Cardiovascular: Reports: No Symptoms GI/Abdominal: Reports: No Symptoms Musculoskeletal: Reports: Leg Pain, Joint Pain Skin: Reports: No Symptoms Neurological: Reports: No Symptoms ED EXAM, NEURO - Physical Exam Exam: See Below Exam Limited By: No Limitations General Appearance: Alert, WD/WN, No Apparent Distress Eye Exam: Bilateral Eye: EOMI, PERRL Head Exam: Atraumatic Respiratory/Chest: No Respiratory Distress Cardiovascular: Normal Peripheral Pulses GI/Abdominal: Normal Bowel Sounds, Soft, Non-Tender Neurological: Alert, Normal Mood/Affect, No Motor/Sensory Deficits, Oriented x 3 Extremities: Normal Inspection, Normal Range of Motion Psychiatric: Normal Affect #1 Interpretation EKG Date: 12/08/20 Rhythm: NSR [place]: Normal P-Wave: Present QRS: Normal ST-T: Normal QT: Normal Course - Vital Signs Last Recorded V/S: Last Vital Signs Temp 36.8 C 12/08/20 19:30 Pulse 68 12/08/20 19:30 Resp 18 12/08/20 19:30 BP 142/65 H 12/08/20 19:30 Pulse Ox 97 12/08/20 19:30 - Orders/Labs/Meds Orders: Active Orders 24 hr Category Date Time Status EKG Documentation Completion [RC] ASDIRECTED Care 12/08/20 20:03 Active Head wo Cont [CT] Stat Exams 12/08/20 19:42 Taken EKG 12 Lead [EK] Routine Ther 12/08/20 20:03 Ordered Labs: Laboratory Tests 12/08/20 12/08/20 Range/Units 20:15 20:35 WBC 5.8 (4.0-11.0) K/uL RBC 3.09 L (3.80-5.80) M/uL Hgb 8.4 L (11.5-16.5) g/dL Hct 26.7 L (37.0-47.0) % MCV 86 (76-96) fL MCH 27.2 (27.0-32.0) pg MCHC 31.5 (31.0-35.0) g/dL RDW 13.9 (11.0-16.0) % Plt Count 225 (150-500) K/uL MPV 9.0 (6.0-10.0) fL Sodium 127 L (136-145) mmol/L Potassium 5.1 D (3.5-5.1) mmol/L Chloride 97 L (98-107) mmol/L Carbon Dioxide 27.5 (21.0-32.0) mmol/L Anion Gap 7.6 (5.0-15.0) mmol/L BUN 20 D (8-26) mg/dL Creatinine 1.29 H D (0.55-1.02) mg/dL Est Cr Clr Drug Dosing TNP Estimated GFR (MDRD) 40 L (>60) MLS/MIN BUN/Creatinine Ratio 15.5 (6-25) Glucose 116 H (74-100) mg/dL Calcium 8.1 L (8.5-10.1) mg/dL - Re-Assessments/Exams Free Text/Narrative Re-Assessment/Exam: vitals WNL CT head wo contrast - no e/o acute findings or stroke EKG - NSR labs were ordered - showed mild hyponatremia and hypochloremia - which seems to be chronic. Also showed anemia which is slightly worse than baseline patient is at her baseline at the moment will start her on iron replacement therapy Departure - Departure Time of Disposition: 20:58 Disposition: Home, Self-Care 01 Condition: Good Clinical Impression: Hyponatremia Anemia Qualifiers: Anemia type: unspecified type Qualified Code(s): D64.9 - Anemia, unspecified - Discharge Information *PRESCRIPTION DRUG MONITORING PROGRAM REVIEWED*: Not Applicable *COPY OF PRESCRIPTION DRUG MONITORING REPORT IN PATIENT WARREN: Not Applicable Instructions: Hyponatremia, Hyponatremia, [id number], Iron-Rich Diet, Preventing Iron Deficiency Anemia, Adult Forms: ED Department Discharge Sepsis Event Note (ED) - Focused Exam Vital Signs: Vital Signs Temp Pulse Resp BP Pulse Ox 12/08/20 19:30 36.8 C 68 18 142/65 H 97 - Problem List & Annotations (1) Hyponatremia SNOMED Code(s): 82851972 Code(s): E87.1 - HYPO-OSMOLALITY AND HYPONATREMIA Status: Acute Priority: Low (2) Anemia SNOMED Code(s): 670088289 Code(s): D64.9 - ANEMIA, UNSPECIFIED Status: Acute Priority: Low Qualifiers: Anemia type: unspecified type Qualified Code(s): D64.9 - Anemia, unspecified - Problem List Review Problem List Initiated/Reviewed/Updated: Yes - My Orders Last 24 Hours: My Active Orders 12/08/20 19:42 Head wo Cont [CT] Stat 12/08/20 20:03 EKG Documentation Completion [RC] ASDIRECTED EKG 12 Lead [EK] Routine - Assessment/Plan Last 24 Hours: My Active Orders 12/08/20 19:42 Head wo Cont [CT] Stat 12/08/20 20:03 EKG Documentation Completion [RC] ASDIRECTED EKG 12 Lead [EK] Routine Plan: - increase fluids intake - increase iron in your diet - follow up with your PCP in 1-2 weeks to discuss your low hemoglobin level - start taking iron replacement supplement
[2020-12-08 20:29] VITALS: BP 142/65; PULSE 68
--- NOTE | 2020-12-09 08:45 | CT ---
Date of Service: 12/08/20 Clinical Data: s/p fall at 1730, then difficulty feeding herself UNENHANCED BRAIN CT: Multislice axial acquisition was performed. Comparison was made to a prior exam dated 09/19/20. There are periventricular lucencies bilaterally consistent with small vessel ischemic change. No masses or mass effect. No intracranial hemorrhage. No evidence of acute or subacute infarct. No osseous abnormalities. IMPRESSION: No acute intracranial abnormalities. [id number] [facility]
== END 2020-12-08 21:13 | disposition home or self-care (01) ==
LOC: LB.ED 19:18
DX: D64.9 Anemia, unspecified (principal); E87.1 Hypo-osmolality and hyponatremia; S09.90XA Unspecified injury of head, initial encounter; I10 Essential (primary) hypertension; J44.9 Chronic obstructive pulmonary disease, unspecified; E03.9 Hypothyroidism, unspecified; Z79.82 Long term (current) use of aspirin; Z79.899 Other long term (current) drug therapy; Z88.0 Allergy status to penicillin; Z88.1 Allergy status to other antibiotic agents; Z88.2 Allergy status to sulfonamides; Z91.048 Other nonmedicinal substance allergy status; Z88.5 Allergy status to narcotic agent; Z88.8 Allergy status to other drugs, medicaments and biological substances; W18.09XA Striking against other object with subsequent fall, initial encounter
CPT/HCPCS: 36415; 70450; 80048; 85027; 93005; 99284-25

== ENCOUNTER 2020-12-29 11:02 | Emergency (ER) | payer MEDICARE, MEDICAID ==
--- NOTE | 2020-12-29 12:58 | PCM.SN.2 ---
- Free Text/Narrative Note: This [facility] a [facility] the [facility] facility and required a COVID test today. She was not evaluated in the ED for any concerns.
== END 2020-12-29 16:00 ==
LOC: LB.ED 11:02
DX: R05 Cough (principal); Z20.822 Contact with and (suspected) exposure to COVID-19
CPT/HCPCS: 99281; U0002

== ENCOUNTER 2021-01-02 04:14 | Emergency (ER) | payer MEDICARE, MEDICAID ==
--- NOTE | 2021-01-02 04:38 | EDM.PDOC ---
ED HPI GENERAL MEDICAL PROBLEM - General Chief Complaint: Respiratory Problem Stated Complaint: SOB, wheezing and CP Time Seen by Provider: 01/02/21 04:30 Source of Information: Reports: Patient, RN Notes Reviewed History Limitations: Reports: No Limitations - History of Present Illness INITIAL COMMENTS - FREE TEXT/NARRATIVE: This patient presents to the ED requesting evaluation of chest pain. When asked what brings her to the ED patient states she has pain in her hip and needs more pain medication. When asked about her chest pain states "I just told them that so they would bring me here." Patient is from shelter facility and now denies she has chest pain. Is requesting more medication for her pain. Patient also states that she could have chest pain sometime soon. Patient denies headache, difficulty breathing, nausea, vomiting. - Related Data Allergies Allergy/AdvReac Type Severity Reaction Status Date / Time adhesive Allergy Rash Verified 01/02/21 06:52 milnacipran [From Savella] Allergy Cannot Verified 01/02/21 06:52 Remember nicotine [From Nicoderm CQ] Allergy Itching Verified 01/02/21 06:52 Penicillins Allergy Anaphylactic Verified 01/02/21 06:52 Shock tetracycline Allergy Cannot Verified 01/02/21 06:52 Remember yellow dye Allergy Cannot Verified 01/02/21 06:52 Remember diflunisal [From Dolobid] AdvReac Nausea Verified 01/02/21 06:52 gabapentin AdvReac Depression Verified 01/02/21 06:52 ketoprofen AdvReac Nausea Verified 01/02/21 06:52 lisinopril AdvReac Cannot Verified 01/02/21 06:52 Remember pregabalin [From Lyrica] AdvReac Cannot Verified 01/02/21 06:52 Remember Sulfa (Sulfonamide AdvReac Cannot Verified 01/02/21 06:52 Antibiotics) Remember Home Meds: Home Meds Roflumilast [Daliresp] 500 mcg PO DAILY 12/26/15 [History] Propranolol [Inderal LA] 60 mg PO DAILY 09/23/17 [History] traZODone 100 mg PO BEDTIME 09/23/17 [History] Cyanocobalamin (Vitamin B12) [Vitamin B12] 1,000 mcg IM ASDIRECTED 12/20/18 [History] Pantoprazole Sodium [Protonix] 40 mg PO DAILY 03/03/19 [History] DULoxetine HCl [Cymbalta] 60 mg PO DAILY 03/30/20 [History] Divalproex Sodium 125 mg PO TID 03/30/20 [History] Levothyroxine 75 mcg PO DAILY 03/30/20 [History] Cyclobenzaprine [Flexeril] 5 mg PO TID PRN 04/29/20 [History] Acetaminophen [Tylenol Extra Strength] 1,000 mg PO Q6H 06/18/20 [History] Albuterol Sulfate [Proair Hfa] 1 puff INH Q4H PRN 06/18/20 [History] Albuterol/Ipratropium [DuoNeb 3.0-0.5 MG/3 ML] 1 vial INH Q6H 06/18/20 [History] Aspirin [Halfprin] 81 mg PO DAILY 06/18/20 [History] Budesonide/Formoterol [Symbicort 160-4.5 MCG] 1 puff INH BID 06/18/20 [History] Magnesium Oxide 400 mg PO DAILY 06/18/20 [History] Tiotropium [Spiriva HandiHaler] 1 puff INH DAILY 06/18/20 [History] ondansetron HCL [Zofran] 4 mg PO Q6H PRN 06/18/20 [History] Trolamine Salicylate/Aloe Vera [Aspercreme 10%] 1 gm TOP DAILY PRN tube 07/09/20 [Rx] busPIRone [Buspar] 15 mg PO TID@0800,1200,1700 tablet 07/09/20 [Rx] oxyCODONE 5 mg PO BID PRN tablet 07/09/20 [Rx] polyethylene glycoL 3350 [MiraLAX] 17 gm PO BID packet 07/09/20 [Rx] Docusate Sodium [Colace] 100 mg PO BID 09/19/20 [History] Escitalopram [Lexapro] 20 mg PO DAILY 09/19/20 [History] Losartan Potassium 75 mg PO DAILY 09/19/20 [History] Sennosides/Docusate Sodium [Senna-Docusate Sodium Tablet] 2 each PO BID PRN 09/19/20 [History] Iron Ps Complex/B12/Folic Acid [Ferrex 150 Forte Capsule] 1 each PO DAILY #30 capsule 12/08/20 [Rx] Past Medical History HEENT History: Reports: Hard of Hearing, Impaired Vision, Other (See Below) Other HEENT History: dentures Cardiovascular History: Reports: Hypertension Respiratory History: Reports: COPD Gastrointestinal History: Reports: Cholelithiasis, Chronic Diarrhea, GERD Genitourinary History: Reports: UTI, Recurrent 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: Musculoskeletal History: Reports: Fracture, Fibromyalgia, Osteoarthritis Other Musculoskeletal History: ORIF R hip Psychiatric History: Reports: Anxiety, Depression, Emotional Problems, Panic Attack, Psych Hospitalization(s), PTSD, Suicide Attempt, Suicidal Ideation Endocrine/Metabolic History: Reports: Hypothyroidism Hematologic History: Reports: B12 Deficiency Oncologic (Cancer) History: Reports: Lung, Ovarian Dermatologic History: Reports: Eczema - Infectious Disease History Infectious Disease History: Reports: Chicken Pox, Measles, Mumps - Past Surgical History HEENT Surgical History: Reports: None Cardiovascular Surgical History: Reports: None Respiratory Surgical History: Reports: Lung Resection, Other (See Below) Other Respiratory Surgeries/Procedures: Left Upper Lobectomy GI Surgical History: Reports: Cholecystectomy Female Surgical History: Reports: Other (See Below) Other Female Surgeries/Procedures: Ovarian Ca Endocrine Surgical History: Reports: None Musculoskeletal Surgical History: Reports: None Oncologic Surgical History: Reports: Lobectomy Dermatological Surgical History: Reports: None Social & Family History - Family History Family Medical History: No Pertinent Family History Respiratory: Reports: COPD - Caffeine Use Caffeine Use: Reports: Coffee Other Caffeine Use: Drinks 4 cups coffee a day ED ROS GENERAL - Review of Systems Review Of Systems: See Below Constitutional: Denies: Fever, Chills, Weakness HEENT: Reports: No Symptoms Respiratory: Denies: Shortness of Breath, Wheezing, Cough Cardiovascular: Denies: Chest Pain, Dyspnea on Exertion, Orthopnea, Palpitations GI/Abdominal: Denies: Abdominal Pain, Diarrhea, Nausea, Vomiting Musculoskeletal: Reports: Joint Pain (hip). Denies: Joint Swelling Skin: Reports: No Symptoms Neurological: Reports: No Symptoms ED EXAM, GENERAL - Physical Exam Exam: See Below Exam Limited By: No Limitations General Appearance: Alert, No Apparent Distress Eye Exam: Bilateral Eye: PERRL Head: Atraumatic, Normocephalic Neck: Normal Inspection Respiratory/Chest: No Respiratory Distress, Lungs Clear, Normal Breath Sounds, No Accessory Muscle Use, Chest Non-Tender Cardiovascular: Normal Peripheral Pulses, Regular Rate, Rhythm Neurological: Alert, Oriented Psychiatric: Normal Affect Skin Exam: Warm, Dry, Normal Color Course - Vital Signs Last Recorded V/S: Last Vital Signs Temp 36.6 C 01/02/21 04:14 Pulse 70 01/02/21 04:25 Resp 14 01/02/21 04:25 BP 117/66 01/02/21 04:25 Pulse Ox 92 L 01/02/21 04:25 - Re-Assessments/Exams Free Text/Narrative Re-Assessment/Exam: 01/02/21 11:42 This patient presented to the ER with a complaint of chest pain. She states that she did not have chest pain but told the shelter staff that so she could be seen in the ER for her hip pain. She has an appointment for this and a cough later today in the clinic. A medical screening exam was done and she was found free of acute findings. She was discharged back to shelter facility. Departure - Departure Time of Disposition: 04:35 Disposition: Home, Self-Care 01 Preliminary Cause of *Q: Sepsis & Multi System Organ Failure Condition: Good Clinical Impression: Chest pain, Encounter for medical screening examination - Discharge Information *PRESCRIPTION DRUG MONITORING PROGRAM REVIEWED*: Not Applicable *COPY OF PRESCRIPTION DRUG MONITORING REPORT IN PATIENT WARREN: Not Applicable Instructions: Chest Wall Pain, [id number], Nonspecific Chest Pain, Adult, [id number] Referrals: Master Willis MD [Primary Care Provider] - Forms: ED Department Discharge Additional Instructions: Follow up as scheduled with your MD in AM. Sepsis Event Note (ED) - Focused Exam Vital Signs: Vital Signs Temp Pulse Resp BP Pulse Ox 01/02/21 04:25 70 14 117/66 92 L 01/02/21 04:14 36.6 C 78 16 111/97 H 91 L
[2021-01-02 07:07] VITALS: BP 117/66; PULSE 70
== END 2021-01-02 05:00 | disposition home or self-care (01) ==
LOC: LB.ED 04:14
DX: R07.9 Chest pain, unspecified (principal); I10 Essential (primary) hypertension; J44.9 Chronic obstructive pulmonary disease, unspecified; K21.9 Gastro-esophageal reflux disease without esophagitis; Z88.1 Allergy status to other antibiotic agents; Z88.0 Allergy status to penicillin; Z91.048 Other nonmedicinal substance allergy status; Z88.2 Allergy status to sulfonamides; Z88.5 Allergy status to narcotic agent; Z91.09 Other allergy status, other than to drugs and biological substances; Z79.899 Other long term (current) drug therapy
CPT/HCPCS: 99283

== ENCOUNTER 2021-05-05 15:45 | Emergency (ER) | payer MEDICARE, MEDICAID ==
[2021-05-05 16:26] VITALS: BP 145/69; PULSE 65
[2021-05-05] MEDS: Albuterol/Ipratropium 3.0-0.5 MG/3 ML Neb Soln NEB ONE (17:10)
[2021-05-05] MEDS: Albuterol/Ipratropium 3.0-0.5 MG/3 ML Neb Soln ONE (17:16)
[2021-05-05] MEDS: methylPREDNISolone Sodium Succinate 125 MG/2 ML SDV IM ONE (17:53)
[2021-05-05] MEDS: methylPREDNISolone Sodium Succinate 125 MG/2 ML SDV ONE (19:50)
--- NOTE | 2021-05-05 21:27 | EDM.PDOC ---
ED HPI GENERAL MEDICAL PROBLEM - General Chief Complaint: Respiratory Problem Stated Complaint: POSSIBLE PNEUMONIA Time Seen by Provider: 05/05/21 16:00 Source of Information: Reports: Patient History Limitations: Reports: No Limitations - History of Present Illness INITIAL COMMENTS - FREE TEXT/NARRATIVE: 75-year-old female presents the ED complaining of a cough, back pain, difficulty sleeping. All issues are longstanding, nursing facility concerned about cough patient has had testing for COVID-19, influenza A&B, which were both negative. Patient states she has had this cough for over a month, productive with yellow to green phlegm. Coughing makes her back hurt worse. Patient states that she just cannot handle it any more. Patient denies chest pain, shortness of breath, syncope/near syncope, nausea/vomiting, headache, difficulty swallowing, blurred vision, trauma, red swollen painful joints, easy bruising, any urinary symptoms including frequency color smell dysuria. Lower Back Pain Score (Numeric/FACES): 8 - Related Data Allergies Allergy/AdvReac Type Severity Reaction Status Date / Time adhesive Allergy Rash Verified 05/05/21 17:17 milnacipran [From Savella] Allergy Cannot Verified 05/05/21 17:17 Remember nicotine [From Nicoderm CQ] Allergy Itching Verified 05/05/21 17:17 Penicillins Allergy Anaphylactic Verified 05/05/21 17:17 Shock tetracycline Allergy Cannot Verified 05/05/21 17:17 Remember yellow dye Allergy Cannot Verified 05/05/21 17:17 Remember diflunisal [From Dolobid] AdvReac Nausea Verified 05/05/21 17:17 gabapentin AdvReac Depression Verified 05/05/21 17:17 ketoprofen AdvReac Nausea Verified 05/05/21 17:17 lisinopril AdvReac Cannot Verified 05/05/21 17:17 Remember pregabalin [From Lyrica] AdvReac Cannot Verified 05/05/21 17:17 Remember Sulfa (Sulfonamide AdvReac Cannot Verified 05/05/21 17:17 Antibiotics) Remember Home Meds: Home Meds Roflumilast [Daliresp] 500 mcg PO DAILY 12/26/15 [History] Propranolol [Inderal LA] 60 mg PO DAILY 09/23/17 [History] traZODone 100 mg PO BEDTIME 09/23/17 [History] Cyanocobalamin (Vitamin B12) [Vitamin B12] 1,000 mcg IM ASDIRECTED 12/20/18 [History] Pantoprazole Sodium [Protonix] 40 mg PO DAILY 03/03/19 [History] DULoxetine HCl [Cymbalta] 60 mg PO DAILY 03/30/20 [History] Divalproex Sodium 125 mg PO TID 03/30/20 [History] Levothyroxine 75 mcg PO DAILY 03/30/20 [History] Cyclobenzaprine [Flexeril] 5 mg PO TID PRN 04/29/20 [History] Acetaminophen [Tylenol Extra Strength] 1,000 mg PO Q6H 06/18/20 [History] Albuterol Sulfate [Proair Hfa] 1 puff INH Q4H PRN 06/18/20 [History] Albuterol/Ipratropium [DuoNeb 3.0-0.5 MG/3 ML] 1 vial INH Q6H 06/18/20 [History] Aspirin [Halfprin] 81 mg PO DAILY 06/18/20 [History] Budesonide/Formoterol [Symbicort 160-4.5 MCG] 1 puff INH BID 06/18/20 [History] Magnesium Oxide 400 mg PO DAILY 06/18/20 [History] Tiotropium [Spiriva HandiHaler] 1 puff INH DAILY 06/18/20 [History] ondansetron HCL [Zofran] 4 mg PO Q6H PRN 06/18/20 [History] Trolamine Salicylate/Aloe Vera [Aspercreme 10%] 1 gm TOP DAILY PRN tube 07/09/20 [Rx] busPIRone [Buspar] 15 mg PO TID@0800,1200,1700 tablet 07/09/20 [Rx] oxyCODONE 5 mg PO BID PRN tablet 07/09/20 [Rx] polyethylene glycoL 3350 [MiraLAX] 17 gm PO BID packet 07/09/20 [Rx] Docusate Sodium [Colace] 100 mg PO BID 09/19/20 [History] Escitalopram [Lexapro] 20 mg PO DAILY 09/19/20 [History] Sennosides/Docusate Sodium [Senna-Docusate Sodium Tablet] 2 each PO BID PRN 09/19/20 [History] Codeine Phosphate/Guaifenesin [Guaiatussin AC Liquid] 5 ml PO Q4HR PRN #120 05/05/21 [Rx] Hydrocodone/Acetaminophen [Hydrocodon-Acetaminophn 10-325] 1 each PO BID 05/05/21 [History] Past Medical History HEENT History: Reports: Hard of Hearing, Impaired Vision, Other (See Below) Other HEENT History: dentures Cardiovascular History: Reports: Hypertension Respiratory History: Reports: COPD Gastrointestinal History: Reports: Cholelithiasis, Chronic Diarrhea, GERD Genitourinary History: Reports: UTI, Recurrent 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: Musculoskeletal History: Reports: Fracture, Fibromyalgia, Osteoarthritis Other Musculoskeletal History: ORIF R hip Psychiatric History: Reports: Anxiety, Depression, Emotional Problems, Panic Attack, Psych Hospitalization(s), PTSD, Suicide Attempt, Suicidal Ideation Endocrine/Metabolic History: Reports: Hypothyroidism Hematologic History: Reports: B12 Deficiency Oncologic (Cancer) History: Reports: Lung, Ovarian Dermatologic History: Reports: Eczema - Infectious Disease History Infectious Disease History: Reports: Chicken Pox, Measles, Mumps - Past Surgical History HEENT Surgical History: Reports: None Cardiovascular Surgical History: Reports: None Respiratory Surgical History: Reports: Lung Resection, Other (See Below) Other Respiratory Surgeries/Procedures: Left Upper Lobectomy GI Surgical History: Reports: Cholecystectomy Female Surgical History: Reports: Other (See Below) Other Female Surgeries/Procedures: Ovarian Ca Endocrine Surgical History: Reports: None Musculoskeletal Surgical History: Reports: None Oncologic Surgical History: Reports: Lobectomy Dermatological Surgical History: Reports: None Social & Family History - Family History Family Medical History: No Pertinent Family History Respiratory: Reports: COPD - Tobacco Use Tobacco Use Status *Q: Former Tobacco User Used Tobacco, but Quit: Yes Month/Year Tobacco Last Used: 2019 - Caffeine Use Caffeine Use: Reports: Coffee Other Caffeine Use: Drinks 4 cups coffee a day - Recreational Drug Use Recreational Drug Use: No ED ROS GENERAL - Review of Systems Review Of Systems: See Below Constitutional: Reports: No Symptoms HEENT: Reports: No Symptoms Respiratory: Reports: Cough, Sputum, Hemoptysis (Occasional). Denies: Shortness of Breath Cardiovascular: Reports: No Symptoms Endocrine: Reports: No Symptoms GI/Abdominal: Reports: No Symptoms : Reports: No Symptoms Musculoskeletal: Reports: Back Pain (Chronic) Skin: Reports: No Symptoms Neurological: Reports: No Symptoms Psychiatric: Reports: No Symptoms Hematologic/Lymphatic: Reports: No Symptoms Immunologic: Reports: No Symptoms ED EXAM, GENERAL - Physical Exam Exam: See Below Free Text/Narrative:: ABC intact. No apparent distress. No obvious trauma. Speaking in full sentences. Alert and oriented x3, GCS 456. Exam Limited By: No Limitations General Appearance: Alert, WD/WN, No Apparent Distress Eye Exam: Bilateral Eye: EOMI, PERRL Ears: Normal External Exam, Hearing Grossly Normal Nose: Normal Inspection, Normal Mucosa, No Blood, Clear Rhinorrhea Throat/Mouth: Normal Inspection, Normal Lips, Normal Oropharynx, Normal Voice, No Airway Compromise Head: Atraumatic, Normocephalic Neck: Normal Inspection, Non-Tender. No: Lymphadenopathy (R), Lymphadenopathy (L) Respiratory/Chest: No Respiratory Distress, Lungs Clear, Normal Breath Sounds, No Accessory Muscle Use, Chest Non-Tender Cardiovascular: Normal Peripheral Pulses, Regular Rate, Rhythm, No Edema, No Gallop, No JVD, No Murmur, No Rub GI/Abdominal: Soft, Non-Tender, No Distention, No Mass Back Exam: Normal Inspection. No: CVA Tenderness (R), CVA Tenderness (L) Extremities: Normal Inspection, Normal Range of Motion, Non-Tender, Normal Capillary Refill, No Pedal Edema Neurological: Alert, Oriented, Normal Cognition Psychiatric: Normal Affect, Normal Mood Skin Exam: Warm, Dry, Intact, Normal Color, No Rash Course - Vital Signs Last Recorded V/S: Last Vital Signs Temp 98.1 F 05/05/21 16:00 Pulse 65 05/05/21 16:00 Resp 20 05/05/21 16:00 BP 145/69 H 05/05/21 16:00 Pulse Ox 100 05/05/21 16:00 - Orders/Labs/Meds Orders: Active Orders 24 hr Category Date Time Status Chest 1V Frontal [CR] Stat Exams 05/05/21 15:58 Taken CULTURE URINE [RM] Stat Lab 05/05/21 17:00 Received Labs: Laboratory Tests 05/05/21 05/05/21 05/05/21 Range/Units 15:58 15:58 17:00 WBC 11.4 H D (4.0-11.0) K/uL RBC 3.73 L (3.80-5.80) M/uL Hgb 11.8 (11.5-16.5) g/dL Hct 35.8 L (37.0-47.0) % MCV 96 (76-96) fL MCH 31.6 (27.0-32.0) pg MCHC 33.0 (31.0-35.0) g/dL RDW 12.2 (11.0-16.0) % Plt Count 183 D (150-500) K/uL MPV 9.1 (6.0-10.0) fL Neut % (Auto) 67.1 (45.0-70.0) % Lymph % (Auto) 17.8 L (20.0-40.0) % [place] % (Auto) 14.6 H (3.0-10.0) % Eos % (Auto) 0.3 L (1.0-5.0) % Baso % (Auto) 0.2 (0.0-0.5) % Neut # (Auto) 7.67 H (2.00-7.50) K/uL Lymph # (Auto) 2.04 (1.50-4.00) K/uL [place] # (Auto) 1.67 H (0.20-0.80) K/uL Eos # (Auto) 0.04 (0.04-0.40) K/uL Baso # (Auto) 0.02 (0.02-0.10) K/uL Sodium 132 L (136-145) mmol/L Potassium 4.9 (3.5-5.1) mmol/L Chloride 98 (98-107) mmol/L Carbon Dioxide 29.9 (21.0-32.0) mmol/L Anion Gap 9.0 (5.0-15.0) mmol/L BUN 16 D (8-26) mg/dL Creatinine 1.14 H D (0.55-1.02) mg/dL Est Cr Clr Drug Dosing 30.63 mL/min Estimated GFR (MDRD) 46 L (>60) MLS/MIN BUN/Creatinine Ratio 14.0 (6-25) Glucose 91 (74-100) mg/dL Calcium 8.4 L (8.5-10.1) mg/dL Urine Color Yellow Urine Appearance Cloudy (CLEAR) Urine pH 7.5 (5.0-8.0) Ur Specific [place] 1.015 (1.003-1.030) Urine Protein Negative (NEGATIVE) mg/dL Urine Glucose (UA) Negative (NEGATIVE) mg/dL Urine Ketones Trace H (NEGATIVE) mg/dL Urine Occult Blood Trace-intact H (NEGATIVE) Urine Nitrite Negative (NEGATIVE) Urine Bilirubin Negative (NEGATIVE) Urine Urobilinogen 1.0 (0.2-1.0) E.U./dL Ur Leukocyte Esterase Moderate H (NEGATIVE) U Hyaline Cast (Auto) Few /HPF Urine RBC 5-10 H /HPF Urine WBC 40-50 H /HPF Urine WBC Clumps Moderate /HPF Ur Squamous Epith Cells Moderate /HPF Urine Bacteria Moderate H /HPF Meds: Medications Discontinued Medications Generic Name Dose Route Start Last Admin Trade Name Freq PRN Reason Stop Dose Admin Albuterol/Ipratropium Confirm 05/05/21 17:17 05/05/21 17:16 Albuterol/Ipratropium 3.0-0.5 Mg/3 Ml Neb Soln Administered 05/05/21 17:18 Not Given Dose 3 ml .ROUTE .STK-MED ONE Albuterol/Ipratropium 3 ml 05/05/21 17:07 05/05/21 17:10 Albuterol/Ipratropium 3.0-0.5 Mg/3 Ml Neb Soln NEB 05/05/21 17:08 3 ml ONETIME ONE Administration Methylprednisolone Sodium Succinate 125 mg 05/05/21 17:39 05/05/21 17:53 Methylprednisolone Sodium Succinate 125 Mg/2 Ml Sdv IM 05/05/21 17:40 125 mg ONETIME ONE Administration Methylprednisolone Sodium Succinate Confirm 05/05/21 17:57 05/05/21 19:50 Methylprednisolone Sodium Succinate 125 Mg/2 Ml Sdv Administered 05/05/21 17:58 Not Given Dose 125 mg .ROUTE .STK-MED ONE - Radiology Interpretation Free Text/Narrative:: Chest x-ray impression: Heart is normal size. There is calcification of the aortic arch. The pulmonary vasculature appears mildly prominent with cephalization of flow suggesting pulmonary venous congestion. There is a linear density in the left midlung consistent with linear atelectasis or fibrosis. The lungs are otherwise clear. No pneumothorax. No pleural effusion. Consultation with radiology and they confirm no visible pneumonia present with Dr. Desai Departure - Departure Time of Disposition: 16:30 Disposition: DC/Tfer to [facility] 63 Condition: Good Clinical Impression: Cough Back pain Qualifiers: Back pain location: low back pain Chronicity: chronic Back pain laterality: unspecified Sciatica presence: without sciatica Qualified Code(s): M54.50 - Low back pain, unspecified; G89.29 - Other chronic pain - Discharge Information *PRESCRIPTION DRUG MONITORING PROGRAM REVIEWED*: No *COPY OF PRESCRIPTION DRUG MONITORING REPORT IN PATIENT WARREN: No Prescriptions: Codeine Phosphate/Guaifenesin [Guaiatussin AC Liquid] 5 ml PO Q4HR PRN #120 PRN Reason: Cough Referrals: PCP,None [Primary Care Provider] - Forms: ED Department Discharge Additional Instructions: Stop taking Losartan, follow up with Dr. Willis for new blood pressure medication Take Cough syrup with Codeine as directed Drink plenty of fluids Sepsis Event Note (ED) - Focused Exam Vital Signs: Vital Signs Temp Pulse Resp BP Pulse Ox 05/05/21 16:00 98.1 F 65 20 145/69 H 100 - My Orders Last 24 Hours: My Active Orders 05/05/21 15:58 Chest 1V Frontal [CR] Stat 05/05/21 17:00 CULTURE URINE [RM] Stat - Assessment/Plan Last 24 Hours: My Active Orders 05/05/21 15:58 Chest 1V Frontal [CR] Stat 05/05/21 17:00 CULTURE URINE [RM] Stat Assessment:: 1. Cough * Discontinue losartan with consultation with Dr. Willis, he will manage replacement hypertension medication * Guiatussin prescription to be picked up at local pharmacy 2. Back pain (chronic no change) * Patient's pain medication is being managed by Dr. Willis, patient will be seen this week for same Abnormal lab values * slight increase in white blood cell count at 11.4. * Sodium 132 * GFR 46 * Negative nitrites positive leukocyte esterase with no symptoms of urinary tract infection (asymptomatic colonization) will address if reflex culture shows dangerous organism Plan: ABC, history, exam, DuoNeb, chest x-ray, labs, patient education/shared decision-making, Guiatussin ambulatory prescription, follow-up with primary care provider regarding pain, hypertension med, white blood cell count, and return to ED precautions explained. -Patient and/or indirect sales representative understood and agreed to treatment plan. -All questions were answered to the patient's satisfaction. -Patient is discharged in stable condition. Patient to return to the ED if symptoms increase, or shows any signs of systemic infection including temperature greater than 103, lethargy, altered mental status, shortness of breath. Follow-up with primary care provider 2 days.
--- NOTE | 2021-05-06 07:57 | CR ---
DATE OF SERVICE: 05/06/2021 CLINICAL DATA: Cough AP chest: Comparison is made to a prior exam dated 29 April 2020. Heart size is normal. There is calcification of the aortic arch. The pulmonary vasculature appears mildly prominent with cephalization of flow suggesting pulmonary venous congestion. There is a linear density in the left mid lung consistent with linear atelectasis or fibrosis. The lungs are otherwise clear. No pneumothorax. No pleural effusions. MTDD
== END 2021-05-05 18:05 ==
LOC: LB.ED 15:45
DX: G89.29 Other chronic pain (principal); M54.50 Low back pain, unspecified; R05.9 Cough, unspecified; I10 Essential (primary) hypertension; J44.9 Chronic obstructive pulmonary disease, unspecified; K21.9 Gastro-esophageal reflux disease without esophagitis; E03.9 Hypothyroidism, unspecified; Z87.891 Personal history of nicotine dependence; Z91.048 Other nonmedicinal substance allergy status; Z88.0 Allergy status to penicillin; Z88.1 Allergy status to other antibiotic agents; Z88.2 Allergy status to sulfonamides; Z88.8 Allergy status to other drugs, medicaments and biological substances; Z79.82 Long term (current) use of aspirin; Z79.899 Other long term (current) drug therapy
CPT/HCPCS: 36415; 71045; 80048; 81001; 85025; 87086; 96372; 99284; 99285; J2930; J7620-GY

== ENCOUNTER 2021-10-09 14:12 | Emergency (ER) | payer MEDICARE, MEDICAID ==
[2021-10-09] MEDS ORDERED: Sodium Chloride 0.9% 10 ML Syringe FLUSH PRN (14:32)
[2021-10-09] MEDS ORDERED: Diltiazem 25 MG/5 ML SDV IVPUSH ONE (14:38)
[2021-10-09 16:15] VITALS: BP 124/74; PULSE 121
== END 2021-10-09 15:20 ==
LOC: LB.ED 14:12
DX: I48.91 Unspecified atrial fibrillation (principal); I10 Essential (primary) hypertension; J44.9 Chronic obstructive pulmonary disease, unspecified; K21.9 Gastro-esophageal reflux disease without esophagitis; E03.9 Hypothyroidism, unspecified; M19.90 Unspecified osteoarthritis, unspecified site; Z88.0 Allergy status to penicillin; Z88.1 Allergy status to other antibiotic agents; Z91.048 Other nonmedicinal substance allergy status; Z88.8 Allergy status to other drugs, medicaments and biological substances; Z88.2 Allergy status to sulfonamides; Z79.82 Long term (current) use of aspirin; Z79.899 Other long term (current) drug therapy
CPT/HCPCS: 93005; 96374; 99285; J3490; 36415; 80048; 85025; 93010; 99282

== ENCOUNTER 2022-02-05 10:26 | Emergency (ER) | payer MEDICARE, MEDICAID ==
[2022-02-05 12:20] VITALS: BP 107/49; PULSE 125
== END 2022-02-05 12:02 ==
LOC: LB.ED 10:26
DX: I48.20 Chronic atrial fibrillation, unspecified (principal); J44.9 Chronic obstructive pulmonary disease, unspecified; I10 Essential (primary) hypertension; Z91.048 Other nonmedicinal substance allergy status; Z88.8 Allergy status to other drugs, medicaments and biological substances; Z88.0 Allergy status to penicillin; Z88.1 Allergy status to other antibiotic agents; Z91.041 Radiographic dye allergy status; Z88.2 Allergy status to sulfonamides; Z79.899 Other long term (current) drug therapy; Z90.49 Acquired absence of other specified parts of digestive tract; W19.XXXA Unspecified fall, initial encounter
CPT/HCPCS: 73610-RT; 73620-RT; 93010; 99283; 99284

== ENCOUNTER 2022-02-27 11:13 | Emergency (ER) | payer MEDICARE, MEDICAID ==
[2022-02-27] MEDS ORDERED: Sodium Chloride 0.9% 10 ML Syringe FLUSH PRN (11:51)
[2022-02-27 12:23] LABS: ESTIMATED GFR 39 mL/min (>60)
[2022-02-27] MEDS ORDERED: Furosemide 40 MG/4 ML VIAL IVPUSH ONE ×3 (13:13→18:37)
[2022-02-27] MEDS ORDERED: Albuterol/Ipratropium 3.0-0.5 MG/3 ML Neb Soln NEB STA ×2 (14:26→20:46)
[2022-02-27] MEDS ORDERED: Azithromycin 250 MG Tab PO SCH (16:45)
[2022-02-27] MEDS ORDERED: Furosemide 40 MG/4 ML VIAL ONE (19:04)
[2022-02-27] MEDS ORDERED: Albuterol/Ipratropium 3.0-0.5 MG/3 ML Neb Soln ONE (20:54)
[2022-02-27] MEDS ORDERED: Morphine 2 MG/ML SYRINGE IVPUSH ONE (21:18)
[2022-02-27] MEDS ORDERED: Morphine 2 MG/ML SYRINGE ONE (21:29)
[2022-02-27 22:52] VITALS: BP 104/57; PULSE 104
== END 2022-02-28 00:25 ==
LOC: LB.ED 11:13
DX: I11.0 Hypertensive heart disease with heart failure (principal); I50.9 Heart failure, unspecified; R09.02 Hypoxemia; I48.91 Unspecified atrial fibrillation; J44.9 Chronic obstructive pulmonary disease, unspecified; K21.9 Gastro-esophageal reflux disease without esophagitis; M19.90 Unspecified osteoarthritis, unspecified site; E03.9 Hypothyroidism, unspecified; Z91.048 Other nonmedicinal substance allergy status; Z88.8 Allergy status to other drugs, medicaments and biological substances; Z88.0 Allergy status to penicillin; Z88.1 Allergy status to other antibiotic agents; Z88.2 Allergy status to sulfonamides; Z79.899 Other long term (current) drug therapy; Z79.82 Long term (current) use of aspirin; Z79.01 Long term (current) use of anticoagulants; Z20.822 Contact with and (suspected) exposure to COVID-19
CPT/HCPCS: 36415; 36430; 51702; 71045; 80048; 81001; 83735; 83880; 84100; 85018; 85027; 86850; 86900; 86901; 86920; 86922; 93005; 96374; 96375; 96376; 99284-25; J1940; J2270; J7620; P9016; U0002

== ENCOUNTER 2022-05-13 05:58 | Emergency (ER) | payer MEDICARE, MEDICAID ==
[2022-05-13] MEDS ORDERED: Bacitracin Oint 1 GM U/D Packet TOP ONE (06:30)
[2022-05-13 06:38] VITALS: BP 118/85; PULSE 55
== END 2022-05-13 06:45 | disposition home or self-care (01) ==
LOC: LB.ED 05:58
DX: S51.012A Laceration without foreign body of left elbow, initial encounter (principal); S81.812A Laceration without foreign body, left lower leg, initial encounter; I48.91 Unspecified atrial fibrillation; I10 Essential (primary) hypertension; J44.9 Chronic obstructive pulmonary disease, unspecified; K21.9 Gastro-esophageal reflux disease without esophagitis; E03.9 Hypothyroidism, unspecified; Z87.891 Personal history of nicotine dependence; Z91.048 Other nonmedicinal substance allergy status; Z88.0 Allergy status to penicillin; Z88.5 Allergy status to narcotic agent; Z88.8 Allergy status to other drugs, medicaments and biological substances; Z88.1 Allergy status to other antibiotic agents; Z88.2 Allergy status to sulfonamides; Z79.899 Other long term (current) drug therapy; Z79.82 Long term (current) use of aspirin; W17.89XA Other fall from one level to another, initial encounter; Z79.01 Long term (current) use of anticoagulants
CPT/HCPCS: 99281; 99283

== ENCOUNTER 2022-10-05 01:57 | Emergency (ER) | payer MEDICARE, MEDICAID ==
[2022-10-05] MEDS ORDERED: Acetaminophen 325 MG Tab PO ONE (03:15)
[2022-10-05 03:24] LABS: HEMATOCRIT 22.8 % (37.0-47.0); MEAN CORPUSCULAR HEMOGLOBIN 25.7 pg (27.0-32.0); MEAN CORPUSCULAR HGB CONC 29.4 g/dL (31.0-35.0); MEAN PLATELET VOLUME 8.8 fL (6.0-10.0); RED BLOOD CELL COUNT 2.61 M/uL (3.80-5.80); RED CELL DISTRIBUTION WIDTH 17.3 % (11.0-16.0); WHITE BLOOD CELL COUNT,WBC 7.2 K/uL (4.0-11.0)
[2022-10-05] MEDS ORDERED: Acetaminophen 500 MG Tab ONE (03:26)
[2022-10-05] MEDS ORDERED: Acetaminophen 325 MG Tab ONE (03:27)
[2022-10-05 03:31] LABS: HEMOGLOBIN 6.7 g/dL (11.5-16.5)
[2022-10-05 03:40] LABS: ANION GAP 12.8 mmol/L (5.0-15.0); BUN/CREATININE RATIO 19.5 (6-25); CALCIUM 8.4 mg/dL (8.5-10.1); CARBON DIOXIDE,CO2 26.5 mmol/L (21.0-32.0); CREATININE 1.18 mg/dL (0.55-1.02); EST CRCL DRUG DOSING (CG) 29.13 mL/min; POTASSIUM,K 4.3 mmol/L (3.5-5.1); TROPONIN I HIGH SENSITIVITY 10.9 pg/ml (<=60.4)
[2022-10-05 07:36] VITALS: BP 122/69; PULSE 82
== END 2022-10-05 07:30 | disposition home or self-care (01) ==
LOC: SUPCPDRO 01:57 → LB.ED 01:57
DX: S51.012A Laceration without foreign body of left elbow, initial encounter (principal); S00.83XA Contusion of other part of head, initial encounter; D64.9 Anemia, unspecified; I48.91 Unspecified atrial fibrillation; I11.0 Hypertensive heart disease with heart failure; I50.9 Heart failure, unspecified; J44.9 Chronic obstructive pulmonary disease, unspecified; K21.9 Gastro-esophageal reflux disease without esophagitis; M19.90 Unspecified osteoarthritis, unspecified site; E03.9 Hypothyroidism, unspecified; Z87.891 Personal history of nicotine dependence; Z91.048 Other nonmedicinal substance allergy status; Z88.8 Allergy status to other drugs, medicaments and biological substances; Z88.0 Allergy status to penicillin; Z88.1 Allergy status to other antibiotic agents; Z88.6 Allergy status to analgesic agent; Z88.2 Allergy status to sulfonamides; Z79.01 Long term (current) use of anticoagulants; Z79.899 Other long term (current) drug therapy; W18.30XA Fall on same level, unspecified, initial encounter
CPT/HCPCS: 36415; 36430; 70450; 73070-LT; 80048; 84484; 85027; 86850; 86900; 86901; 86920; 86922; 93005; 93010; 99283; 99284; A9270-GY; P9016

== ENCOUNTER 2022-12-06 19:14 | Emergency (ER) | payer MEDICARE, MEDICAID ==
[2022-12-06 20:52] VITALS: BP 119/64; PULSE 69
== END 2022-12-06 20:20 | disposition home or self-care (01) ==
LOC: LB.ED 19:14
DX: S51.011A Laceration without foreign body of right elbow, initial encounter (principal); S81.811A Laceration without foreign body, right lower leg, initial encounter; Z91.048 Other nonmedicinal substance allergy status; I48.91 Unspecified atrial fibrillation; J44.9 Chronic obstructive pulmonary disease, unspecified; E03.9 Hypothyroidism, unspecified; K21.9 Gastro-esophageal reflux disease without esophagitis; Z88.8 Allergy status to other drugs, medicaments and biological substances; Z88.0 Allergy status to penicillin; Z88.1 Allergy status to other antibiotic agents; Z91.02 Food additives allergy status; Z88.2 Allergy status to sulfonamides; Z79.01 Long term (current) use of anticoagulants; Z79.899 Other long term (current) drug therapy; W19.XXXA Unspecified fall, initial encounter
CPT/HCPCS: 99282; 99283

== ENCOUNTER 2022-12-15 08:34 | Emergency (ER) | payer MEDICARE, MEDICAID ==
[2022-12-15 09:18] LABS: HEMATOCRIT 22.6 % (37.0-47.0); MEAN CORPUSCULAR HEMOGLOBIN 25.2 pg (27.0-32.0); MEAN CORPUSCULAR HGB CONC 28.8 g/dL (31.0-35.0); MEAN CORPUSCULAR VOLUME 88 fL (76-96); MEAN PLATELET VOLUME 8.8 fL (6.0-10.0); PLATELET COUNT,PLT 334 K/uL (150-500); RED BLOOD CELL COUNT 2.58 M/uL (3.80-5.80); RED CELL DISTRIBUTION WIDTH 17.1 % (11.0-16.0); WHITE BLOOD CELL COUNT,WBC 7.5 K/uL (4.0-11.0)
[2022-12-15 09:28] LABS: HEMOGLOBIN 6.5 g/dL (11.5-16.5)
[2022-12-15] MEDS: diphenhydrAMINE 50 MG/ML SDV IVPUSH ONE (09:29)
[2022-12-15] MEDS: Famotidine 20 MG/2 ML SDV IVPUSH ONE (09:37)
[2022-12-15] MEDS: methylPREDNISolone Sodium Succinate 125 MG/2 ML SDV IVPUSH ONE (09:37)
[2022-12-15 09:43] LABS: A/G RATIO 0.7 (0.8-2.0); ALBUMIN 2.7 g/dL (3.4-5.0); ANION GAP 15.6 mmol/L (5.0-15.0); BILIRUBIN TOTAL 0.4 mg/dL (0.0-1.0); BUN/CREATININE RATIO 21.5 (6-25); CALCIUM 8.5 mg/dL (8.5-10.1); CARBON DIOXIDE,CO2 23.4 mmol/L (21.0-32.0); CREATININE 1.35 mg/dL (0.55-1.02); EST CRCL DRUG DOSING (CG) 25.07 mL/min; PROTEIN TOTAL,TP 6.6 g/dL (6.4-8.2)
[2022-12-15] MEDS ORDERED: Sodium Chloride 0.9% 10 ML Syringe FLUSH PRN (10:07)
[2022-12-15] MEDS: Furosemide 40 MG/4 ML VIAL IVPUSH ONE ×2 (11:08→15:05)
[2022-12-15] MEDS: LORazepam 2 MG/ML SDV IVPUSH ONE (15:30)
[2022-12-15] MEDS: methylPREDNISolone Sodium Succinate 125 MG/2 ML SDV ONE (15:33)
[2022-12-15] MEDS: diphenhydrAMINE 50 MG/ML SDV ONE (15:33)
[2022-12-15] MEDS: Furosemide 40 MG/4 ML VIAL ONE ×2 (15:34→20:20)
[2022-12-15 18:24] VITALS: BP 140/73
[2022-12-15 19:54] VITALS: PULSE 75
[2022-12-15] MEDS: LORazepam 2 MG/ML SDV ONE (20:12)
[2022-12-15] MEDS: Furosemide 20 MG/2 ML VIAL IVPUSH ONE (20:23)
== END 2022-12-15 17:50 ==
LOC: LB.ED 08:34
DX: T78.3XXA Angioneurotic edema, initial encounter (principal); D64.9 Anemia, unspecified; K21.9 Gastro-esophageal reflux disease without esophagitis; I48.91 Unspecified atrial fibrillation; I10 Essential (primary) hypertension; E03.9 Hypothyroidism, unspecified; J44.9 Chronic obstructive pulmonary disease, unspecified; Z87.891 Personal history of nicotine dependence; Z91.048 Other nonmedicinal substance allergy status; Z88.1 Allergy status to other antibiotic agents; Z91.02 Food additives allergy status; Z88.0 Allergy status to penicillin; Z88.2 Allergy status to sulfonamides; Z88.8 Allergy status to other drugs, medicaments and biological substances; Z79.01 Long term (current) use of anticoagulants; Z79.899 Other long term (current) drug therapy
CPT/HCPCS: 36415; 36430; 51702; 71045; 80053; 83880; 85025; 85651; 86140; 86850; 86900; 86901; 86920; 86922; 96374; 96375; 96376; 99285; J1200; J1940; J2060; J2930; J3490; P9016